=== PATIENT | female | born 1965 | race Caucasian/White ===

== ENCOUNTER → 2020-06-21 14:45 | Outpatient (BNVA) | payer MEDICAID, SELFPAY | PROVIDERS: Family Provider Internal Medicine; Referring Provider Nurse Practitioner Family; Visit Provider Podiatrist Foot & Ankle Surgery | DX: L60.3 Nail dystrophy (principal) | CPT/HCPCS: 87210; 88304 ==

== ENCOUNTER 2020-07-28 13:35 | Outpatient (CLI) | payer MEDICAID, SELFPAY ==
--- NOTE | 2020-07-28 13:40 | XR_ITS ---
WS: [id number] LATERAL LUMBAR SPINE: 3 view. Lateral radiographs are performed in upright neutral, flexion and extension to the patient's toleranc e. HISTORY: SPONDYLOLISTHESIS LUMBOSACRAL REGION COMPARISON: 07/29/2019 Posterior lumbar alignment is normal. With flexion and extension no instability. No fractures. Modera te disc space narrowing at L5-S1. Mild atherosclerosis aorta. XR/XR lumbar spine f/e only [id number] IMPRESSION: 1. No lumbar spine instability. 2. Moderate degenerative disc disease at L5-S1.
== END 2020-07-28 13:36 | disposition home or self-care (01) ==
LOC: RADWPI 13:38
PROVIDERS: Family Provider Internal Medicine; PCP Internal Medicine; Visit Provider Nurse Practitioner
DX: M43.17 Spondylolisthesis, lumbosacral region (principal); M51.37 Other intervertebral disc degeneration, lumbosacral region
CPT/HCPCS: 72120

== ENCOUNTER 2020-10-28 20:00 | Outpatient (CLI) | payer MEDICAID, SELFPAY | END 2020-10-28 20:01 | disposition home or self-care (01) | LOC: SLEEP 10-29 08:12 | PROVIDERS: Family Provider Internal Medicine; PCP Internal Medicine; Visit Provider Internal Medicine | DX: G47.33 Obstructive sleep apnea (adult) (pediatric) (principal) | CPT/HCPCS: 95811 ==

== ENCOUNTER 2021-01-12 07:45 | Outpatient (CLI) | payer MEDICAID, SELFPAY ==
--- NOTE | 2021-01-12 07:51 | MM_ITS ---
WS: [id number] BILATERAL SCREENING DIGITAL MAMMOGRAM WITH CAD HISTORY: SCREENING COMPARISON: 03/21/2019 and 03/12/2019 Bilateral CC and MLO views submitted. Computer aided detection analyzed. Breast composition: There are scattered areas of fibroglandular density. No suspicious masses, microc alcifications or architectural distortion. Benign calcifications. No interval change. MM/[place] [id number] IMPRESSION: BI-RADS: 2-Benign FOLLOW UP: 1 Year Follow-up
== END 2021-01-12 07:46 | disposition home or self-care (01) ==
LOC: RADSHAW 07:49
PROVIDERS: PCP Internal Medicine; Visit Provider Internal Medicine
DX: Z12.31 Encounter for screening mammogram for malignant neoplasm of breast (principal)
CPT/HCPCS: 77067

== ENCOUNTER 2021-03-22 13:30 | Outpatient (CLI) | payer MEDICAID, SELFPAY ==
--- NOTE | 2021-03-22 13:38 | CT_ITS ---
WS: [id number] CT PARANASAL SINUSES HISTORY: CHRONIC SINUSITIS TECHNIQUE: Contiguous 2.5 mm axial images obtained through the sinuses. Images are reconstructed in s agittal and coronal planes. All CT scans at [facility] use at least one of these dose opt imization techniques: automated exposure control; mA and/or kV adjustment per patient size (includes targeted exams where dose is matched to clinical indication); or iterative reconstruction. DLP: 338.71 mGycm COMPARISON: 02/16/2006 Frontal sinuses: Normal. Sphenoid sinus: Normal. Ethmoid sinuses: Normal. Maxillary sinus: Normal. Ostiomeatal unit: Widely patent. Left-sided denae bullosa middle turbinate.. Mild deviation of the n radha septum to the RIGHT. CT/CT sinus wo con* [id number] IMPRESSION: 1. Normal sinus CT. 2. Mild RIGHT deviation of the nasal septum.
== END 2021-03-22 13:31 | disposition home or self-care (01) ==
PROVIDERS: PCP Internal Medicine; Visit Provider Otolaryngology
DX: J32.0 Chronic maxillary sinusitis (principal); J34.2 Deviated nasal septum
CPT/HCPCS: 70486

== ENCOUNTER 2021-04-28 21:00 | Emergency (ER) | payer MEDICAID, SELFPAY ==
[2021-04-28 21:41] VITALS: BP 138/82; PULSE 100; RESP 20; TEMP 36.7; O2SAT 95; BMI 41.3
[2021-04-28 22:38] LABS: Add Urine Microscopic? NO; Charge for UA Resulting for Rev
[2021-04-28 22:41] LABS: Bilirubin Urine Neg (Negative); Blood Urine Neg (Negative); Glucose Urine UA 4+ (Normal); Ketones Urine Negative (Negative); Leukocyte Esterase Urine Negative (Negative); Nitrate Urine Negative (Negative); Protein Urine Neg (Negative); Specific Gravity, Urine 1.005 (1.005-1.030); Urine Appearance Clear (CLEAR); Urine Color Yellow (Yellow); Urobilinogen Urine Norm (Negative); pH Urine 5 (5-7)
--- NOTE | 2021-04-28 23:45 | W.ED.FEMALGU ---
HPI - Female Genitourinary General: Chief complaint: Urogenital-Female Stated complaint: Possible Kidney Infection Time Seen by Provider: 04/28/21 23:45 History of Present Illness: HPI Narrative: Patient comes in today with complaints of urinary frequency and mid back pain. Patient is on a SGL 2 inhibitor which causes her to urinate frequently. Patient reports no fever. Patient does report that occasionally she will get urinary tract infections and yeast infections. Patient came in mainly due to her back discomfort. Review of Systems General: Reports: 10 or more systems reviewed and unremarkable except in HPI and below Musc: Reports: back pain PFSH ED PFSH: Medical History Diabetes mellitus Fibromyalgia High cholesterol Hypertension Surgical History History of 2 sections Family History Other Cancer Diabetes Social History Smoking and tobacco status: never smoked Household members: spouse and children Marital status: Current occupational status: unemployed Physical Exam Const: COMMON NORMALS: no acute distress and patient oriented x3 GENERAL APPEARANCE: cooperative HENMT: COMMON NORMALS: normocephalic, TM's normal bilaterally and Normal external nose present HEAD & SCALP: normal to inspection and normocephalic NOSE: Normal external nose present TYMPANIC MEMBRANE: TM's normal bilaterally MOUTH: Normal oral and palatal mucosa present THROAT: posterior oropharynx normal Eye: GENERAL EYE: appearance normal, both eyes and all related structures Neck/C-Spine: COMMON NORMALS: full ROM Chest: COMMONS NORMALS: normal inspection of the chest Resp: COMMON NORMALS: normal respiratory effort EFFORT & INSPECTION: Yes able to speak in complete sentences Cardio: COMMON NORMALS: regular rate and regular rhythm RATE: regular rate RHYTHM: regular rhythm GI: COMMON NORMALS: non-tender : COMMON NORMALS: Yes no CVA tenderness BLADDER/KIDNEY EXAM: Yes no CVA tenderness Back/Pelvis: COMMON NORMALS: no CVA tenderness LUMBAR SPINE/LOWER BACK: Yes paraspinal muscle tenderness Extremity: COMMON NORMALS: normal to inspection Neuro: COMMON NORMALS: patient oriented x3 and moves all extremities Psych: COMMON NORMALS: mental status grossly normal and cooperative Skin: COMMON NORMALS: no rashes or lesions noted GENERAL SKIN EXAM: no rashes or lesions noted Course Vital Signs: Vital signs: Vital Signs Temperature 98.1 F 04/28/21 21:41 Pulse Rate 100 04/28/21 21:41 Respiratory Rate 20 H 04/28/21 21:41 Blood Pressure 138/82 04/28/21 21:41 Pulse Oximetry 95 04/28/21 21:41 MDM - Female MDM Narrative: Medical decision making narrative: Patient came in tonight for complaints of low back pain and muscle spasming. Patient thinks that she may have a urinary tract infection. On exam respirations are even lungs are clear to auscultation. Abdomen soft nontender. Patient has some muscle tightness and tenderness to the bilateral lower back. Differential diagnosis includes but not limited to urinary tract infection, low back pain, electrolyte disturbance. Urinalysis was clear except for some glucose. CBC was normal. CMP noted no significant abnormal liver enzymes did show a glucose of 265, and a sodium of 135. Patient was given 1 hydrocodone which seemed to help her pain. Patient is worried though that she may be having some adverse effect of the empagliflozin which she relates to the handout that she got with the medication. I recommended the patient just follow-up with primary care for further evaluation and recommendations. Patient agreed to the plan. Lab Data: Labs: Lab Results 04/28/21 04/29/21 04/29/21 Range/Units 22:00 00:05 00:05 WBC 7.0 (4.0-10.0) 10^3/ uL RBC 5.05 (4.1-5.3) 10^6/u L Hgb 15.3 (11.5-15.3) g/dL Hct 44.5 (37.0-47.0) % MCV 88.1 (81-99) fL MCH 30.3 (28.0-34.0) pg MCHC 34.4 (30.0-36.0) g/dL RDW 13.1 (12.1-15.1) % Plt Count 210 (130-400) 10^3/c mm MPV 9.7 (7.4-10.4) fL Neut % (Auto) 59.6 % Lymph % (Auto) 29.3 % Carter % (Auto) 8.0 % Eos % (Auto) 2.0 % Baso % (Auto) 0.7 % Neut # (Auto) 4.17 (1.8-7.7) 10^3/u L Lymph # (Auto) 2.1 (0.8-4.8) 10^3/u L Carter # (Auto) 0.6 (0.2-0.9) 10^3/u L Eos # (Auto) 0.1 (0.0-0.8) 10^3/u L Baso # (Auto) 0.1 (0.0-0.1) 10^3/u L Nucleated RBC % (a uto) 0 % Nucleated RBCs # 0.0 /100WBC Sodium 135 L (136-145) mmol/L Potassium 3.9 (3.5-5.1) mmol/L Chloride 97 L (98-107) mmol/L Carbon Dioxide 25 (22-29) mmol/L Anion Gap 16.9 (5-19) BUN 11 (6-20) mg/dL Creatinine 0.7 (0.5-0.9) mg/dL GFR Calculation 86.9 L (90-130) mL/min Glucose 265 H (65-115) mg/dL Calculated Osmolal ity 289 (285-295) mOsm/k g Calcium 9.4 (8.5-10.5) mg/dL Total Bilirubin 1.1 (0.15-1.2) mg/dL AST 25 (0-32) U/L ALT 28 (0-33) U/L Alkaline Phosphata se 100 (35-105) IU/L Total Protein 7.1 (6.6-8.7) g/dL Albumin 4.2 (3.5-5.2) g/dL Globulin 2.9 (1.3-4.6) g/dL Lipase 19 (13-60) U/L Urine Color Yellow (Yellow) Urine Appearance Clear (CLEAR) Urine pH 5 (5-7) Ur Specific Gravit y 1.005 (1.005-1.030) Urine Protein Neg (Negative) Urine Glucose (UA) 4+ H (Normal) Urine Ketones Negative (Negative) Urine Blood Neg (Negative) Urine Nitrate Negative (Negative) Urine Bilirubin Neg (Negative) Urine Urobilinogen Norm (Negative) mg/dL Ur Leukocyte Destiney ase Negative (Negative) Discharge Plan Discharge Patient Disposition: Home Clinical Impression: Back pain Qualifiers: Back pain location: low back pain Chronicity: acute Back pain laterality: unspecified Sciatica presence: without sciatica Qualified Code(s): M54.5 - Low back pain Condition: Stable Prescriptions: No Action Jardiance 25 mg tablet 25 mg PO DAILY RF: 0 escitalopram oxalate 20 mg tablet 20 mg PO DAILY RF: 0 omeprazole 40 mg capsule,delayed release(DR/EC) 40 mg PO DAILY RF: 0 Dialyvite Vitamin D3 Max 1,250 mcg (50,000 unit) tablet PO RF: 0 venlafaxine 75 mg capsule,extended release 24hr 75 mg PO DAILY RF: 0 All Day Allergy (cetirizine) 10 mg capsule 10 mg PO DAILY PRNRF: 0 tramadol 50 mg tablet 50 mg PO Q8H PRNRF: 0 insulin aspart U-100 [Novolog Flexpen U-100 Insulin] 100 unit/mL (3 mL) insulin pen 5 unit SUBCUT TID RF: 0 waoqwkq-wyrhyuovhe-QYM-caff [Butalbital Compound W/Codeine] [id number] mg capsule 1 cap PO Q6H PRNRF: 0 amitriptyline 25 mg tablet 25 mg PO DAILY RF: 0 lorazepam 0.5 mg tablet 0.5 mg PO DAILY PRNRF: 0 amlodipine 5 mg tablet 5 mg PO DAILY RF: 0 pregabalin 100 mg capsule 100 mg PO BID RF: 0 lovastatin 20 mg tablet 20 mg PO DAILY RF: 0 lisinopril 40 mg tablet 40 mg PO DAILY RF: 0 insulin glargine 100 unit/mL solution 20 unit SUBCUT DAILY RF: 0 glyburide 5 mg tablet 5 mg PO BID RF: 0 cephalexin 500 mg capsule 500 mg PO BID RF: 0 fluticasone propionate 50 mcg/actuation spray,suspension 2 spray intranasal DAILY 180 Days Qty: 16 RF: 5 Discharge Orders: Discharge ED (Routine); Ordered 04/29/21 Ordered By: Jere Quinteros Referrals: Lacy Rios MD [Primary Care Provider] - Discharge Diet: Usual diet Discharge Activity: Increase activity as tolerated Patient Instructions: Back Pain (ED), Opioid Safety Activity Restrictions/Additional Instructions: Home and rest. Activity as tolerated. Continue with routine medications as directed. Follow-up with primary care for further instruction and evaluation. Return to the emergency room for new concerns. Coding Level of Care Code ED Long Term Care Phlebotomist for Viraj Madison Exam Comprehensive
[2021-04-29] MEDS: HYDROcodone-acetaminophen 7.5-325 mg Tablet 1 TAB PO
[2021-04-29 00:19] LABS: Basophils # 0.1 10^3/uL (0.0-0.1); Basophils % 0.7 %; Eosinophils # 0.1 10^3/uL (0.0-0.8); Hematocrit 44.5 % (37.0-47.0); Hemoglobin 15.3 g/dL (11.5-15.3); Lymphocytes # 2.1 10^3/uL (0.8-4.8); Lymphocytes % 29.3 %; Mean Corpuscular HGB Conc 34.4 g/dL (30.0-36.0); Mean Corpuscular Hemoglobin 30.3 pg (28.0-34.0); Mean Corpuscular Volume 88.1 fL (81-99); Mean Platelet Volume 9.7 fL (7.4-10.4); Monocytes # 0.6 10^3/uL (0.2-0.9); Neutrophils # 4.17 10^3/uL (1.8-7.7); Neutrophils % 59.6 %; Nucleated Red Blood Cells % 0 %; Platelet Count 210 10^3/cmm (130-400); Red Blood Count 5.05 10^6/uL (4.1-5.3); Red Cell Distribution Width 13.1 % (12.1-15.1)
[2021-04-29 00:46] LABS: Alanine Aminotransferase 28 U/L (0-33); Albumin Level 4.2 g/dL (3.5-5.2); Alkaline Phosphatase 100 IU/L (35-105); Anion Gap 16.9 (5-19); Aspartate Amino Transferase 25 U/L (0-32); Blood Urea Nitrogen 11 mg/dL (6-20); Calcium 9.4 mg/dL (8.5-10.5); Carbon Dioxide 25 mmol/L (22-29); Chloride 97 mmol/L (98-107); Globulin 2.9 g/dL (1.3-4.6); Glomerular Filtration Rate 86.9 mL/min (90-130); Glucose 265 mg/dL (65-115); Lipase 19 U/L (13-60); Osmolality Calculated 289 mOsm/kg (285-295); Potassium 3.9 mmol/L (3.5-5.1); Sodium 135 mmol/L (136-145); Total Bilirubin 1.1 mg/dL (0.15-1.2); Total Protein 7.1 g/dL (6.6-8.7)
[2021-04-29 00:57] VITALS: BP 142/78; PULSE 78; RESP 18; O2SAT 98
== END 2021-04-29 00:58 | disposition home or self-care (01) ==
PROVIDERS: Emergency Provider Nurse Practitioner Family; PCP Internal Medicine
DX: M54.5 Low back pain (principal); E11.9 Type 2 diabetes mellitus without complications; I10 Essential (primary) hypertension; E78.00 Pure hypercholesterolemia, unspecified; Z79.4 Long term (current) use of insulin
CPT/HCPCS: 80053; 81003; 83690; 85025; 99283

== ENCOUNTER 2021-05-09 12:24 | Outpatient (CLI) | payer MEDICAID, SELFPAY ==
--- NOTE | 2021-05-09 12:28 | CT_ITS ---
WS: [id number] CT scan of the abdomen and pelvis with and without IV contrast. Additional two-dimensional coronal an d sagittal reconstruction was performed. 05/09/2021 Clinical Data: RIGHT FLANK PAIN Comparison: CT abdomen and pelvis, 03/28/2016. DLP: 2169.40 mGy-cm. All CT scans at [facility] use at least one of these dose optimization techniques: automat ed exposure control; mA and/or kV adjustment per patient size (includes targeted exams where dose is matched to clinical indication); or iterative reconstruction. Findings: The lower lungs show no nodules, masses or effusions. There are clips in the gallbladder fossa from a cholecystectomy. The liver, spleen, adrenal glands and pancreas are normal. The kidneys show equal bilateral contrast excretion with no renal calculi. There is a small cyst at t he inferior pole of the right kidney. No renal masses or hydronephrosis is seen. The abdominal aorta is normal in size. No appendicitis or diverticulitis is seen. No abscess, adenopathy, ascites, mass, obstruction or free air is seen. There is a small fat-containing umbilical hernia with fat interposed between the anteri or fascia and the right lateral rectus abdominis muscle unchanged. The bladder is unremarkable. The uterus is normal. No inguinal hernia is seen. The bones of the lower thorax, lumbar spine, pelvis, and hips are not remarkable. CT/CT abdomen pelvis wo/w [id number] Impression: 1. Negative for renal or ureteral calculi. 2. Negative for acute intra-abdominal or pelvic abnormalities.
[2021-05-09] MEDS: iohexol 300 mg/mL 100 mL Btl IV (12:56)
== END 2021-05-09 12:25 | disposition home or self-care (01) ==
PROVIDERS: PCP Internal Medicine; Visit Provider Internal Medicine
DX: R10.9 Unspecified abdominal pain (principal)
CPT/HCPCS: 74178; Q9967

== ENCOUNTER → 2021-12-23 10:24 | Outpatient (BNVA) | payer MEDICAID, SELFPAY | PROVIDERS: PCP Internal Medicine; Visit Provider Surgery | DX: Z11.52 Encounter for screening for COVID-19 (principal) | CPT/HCPCS: 87635 ==

== ENCOUNTER 2021-12-28 08:32 | Day surgery (SDC) | payer MEDICAID, SELFPAY ==
[2021-12-27 09:24] VITALS: BMI 40.6
[2021-12-28 09:27] VITALS: BP 123/95; PULSE 98; RESP 18; TEMP 35.9; O2SAT 98
[2021-12-28] MEDS: sodium chloride 0.9% 1,000 ML 30 ML IV (09:36)
--- NOTE | 2021-12-28 09:40 | P.ANESASSM_ITS ---
Pre-Anesthetic Assessment Height/Weight: Height 1.75 m Weight 124.738 kg Temp Pulse Resp BP Pulse Ox 96.7 F L 98 18 123/95 98 12/28/21 09:27 12/28/21 09:27 12/28/21 09:27 12/28/21 09:27 12/28/21 09:27 Preop Diagnosis: diagnostic Operation Date: 12/28/21 10:45 Proposed Procedures p Colonoscopy 47814/k92.1(Not Applicable) - Mainor Aguirre MD Familial anesthetic complications: None Was Beta Lauren taken within 24 hours: N/A Was Clonidine taken within 24 hours: N/A Last intake: Intake Last Liquid Date 12/27/21 Last Liquid Time 20:00 Last Solid Date 12/26/21 Last Solid Time 23:00 Social No alcohol and No tobacco Exam alert, oriented x 3, clear to auscultation bilaterally and regular rate & rhythm Airway Submandibular: within normal limits Cervical ROM: within normal limits Mallampati: Class II Dentition: chipped Comments: Comments: TMJ Pulmonary Sleep Apnea CV/HEM Hypertension GI Gastroesophageal Reflux Disease Metabolic Diabetes Mellitus, Hyperlipidemia and Morbid Obesity [facility] Lower Back Pain chronic pain Anesthetic Plan ASA status: 3 Anesthesia: MAC Medications/Allergies Home Medications Medication Instructions Recorded Confirmed Last Taken Type amitriptyline 25 mg tablet 25 mg PO DAILY 02/15/21 12/28/21 12/27/21 History 2100 amlodipine 5 mg tablet 5 mg PO DAILY 02/15/21 12/28/21 12/27/21 21:00 History cetirizine 10 mg capsule (All Day 10 mg PO BID PRN 02/15/21 12/28/21 12/27/21 21:00 History Allergy (cetirizine)) cholecalciferol (vitamin D3) 1,250 See Rx Instructions .ROUTE .COMPLEX 02/15/21 12/28/21 12/25/21 History mcg (50,000 unit) tablet (Dialyvite Vitamin D3 Max) hdhdjet-gkmicnabti-WHN-caffeine 30 1 cap PO Q6H PRN 02/15/21 12/28/21 12/21/21 History mg-50 mg-325 mg-40 mg capsule (Butalbital Compound with Codeine) escitalopram oxalate 20 mg tablet 20 mg PO DAILY 02/15/21 12/28/21 12/27/21 22:00 History (Lexapro) glyburide 5 mg tablet 5 mg PO BID 02/15/21 12/28/21 12/27/21 21:00 History insulin aspart U-100 100 unit/mL 22 unit SUBCUT TID 02/15/21 12/28/21 12/26/21 History (3 mL) subcutaneous pen (Novolog Flexpen U-100 Insulin aspart) insulin glargine 100 unit/mL 16 unit SUBCUT BID 02/15/21 12/28/21 12/27/21 21:00 History subcutaneous solution lisinopril 40 mg tablet 40 mg PO DAILY 02/15/21 12/28/21 12/27/21 21:00 History lorazepam 0.5 mg tablet 0.5 mg PO DAILY PRN 02/15/21 12/28/21 12/21/21 History lovastatin 20 mg tablet 20 mg PO DAILY 02/15/21 12/28/21 12/27/21 21:00 History omeprazole 40 mg capsule,delayed 40 mg PO DAILY 02/15/21 12/28/21 12/27/21 08:00 History release pregabalin 100 mg capsule (Lyrica) 100 mg PO BID 02/15/21 12/28/21 12/27/21 21:00 History tramadol 50 mg tablet 50 mg PO Q8H PRN 02/15/21 12/28/21 12/27/21 21:00 History venlafaxine 75 mg capsule,extended 75 mg PO DAILY 02/15/21 12/28/21 12/27/21 21:00 History release 24 hr Allergies Allergy/AdvReac Type Severity Reaction Status Date / Time latex Allergy Severe anaphlactic Verified 12/28/21 09:29 Current Medications Generic Name Dose Route Start Last Admin Trade Name Freq PRN Reason Stop Dose Admin Sodium Chloride 1,000 mls @ 30 mls/hr 12/28/21 09:00 12/28/21 09:36 Sodium Chloride 0.9% IV 12/29/21 08:59 30 mls/hr .Q24H TJ Administration PFSH Anesthesia Medical History Diabetes mellitus Dyslipidemia Fibromyalgia History of anxiety History of depression History of obstructive sleep apnea Hypertension Surgical History History of 2 sections History of cholecystectomy History of colonoscopy with polypectomy 2017 History of endometrial ablation Family History Other Cancer Diabetes Social History Smoking and tobacco status: never smoked Household members: spouse and children Marital status: Current occupational status: unemployed Data Anesthesia Cardiac Studies: No Data to Display
[2021-12-28] MEDS: insulin regular-human 10 UNIT in SYRINGE 1 EACH IVP (09:59)
--- NOTE | 2021-12-28 10:08 | W.PM.OPSFHP ---
Same Day Surgery H&P Indication for Procedure/HPI DATE OF PROCEDURE: December 28, 2021 CHIEF COMPLAINT/INDICATIONFOR SURGICAL PROCEDURE: colonoscopy PREOP DIAGNOSIS: diagnostic PLANNED PROCEDURE: Operation Date: 12/28/21 10:45 Proposed Procedures p Colonoscopy 22129/k92.1(Not Applicable) - Mainor Aguirre MD Medications/Allergies* Home Medications Medication Instructions Recorded Confirmed Type amitriptyline 25 mg tablet 25 mg PO DAILY 02/15/21 12/28/21 History amlodipine 5 mg tablet 5 mg PO DAILY 02/15/21 12/28/21 History cetirizine 10 mg capsule (All Day 10 mg PO BID PRN 02/15/21 12/28/21 History Allergy (cetirizine)) cholecalciferol (vitamin D3) 1,250 See Rx Instructions .ROUTE .COMPLEX 02/15/21 12/28/21 History mcg (50,000 unit) tablet (Dialyvite Vitamin D3 Max) zsnqyrl-fbmcabeizh-PGS-caffeine 30 1 cap PO Q6H PRN 02/15/21 12/28/21 History mg-50 mg-325 mg-40 mg capsule (Butalbital Compound with Codeine) escitalopram oxalate 20 mg tablet 20 mg PO DAILY 02/15/21 12/28/21 History (Lexapro) glyburide 5 mg tablet 5 mg PO BID 02/15/21 12/28/21 History insulin aspart U-100 100 unit/mL 22 unit SUBCUT TID 02/15/21 12/28/21 History (3 mL) subcutaneous pen (Novolog Flexpen U-100 Insulin aspart) insulin glargine 100 unit/mL 16 unit SUBCUT BID 02/15/21 12/28/21 History subcutaneous solution lisinopril 40 mg tablet 40 mg PO DAILY 02/15/21 12/28/21 History lorazepam 0.5 mg tablet 0.5 mg PO DAILY PRN 02/15/21 12/28/21 History lovastatin 20 mg tablet 20 mg PO DAILY 02/15/21 12/28/21 History omeprazole 40 mg capsule,delayed 40 mg PO DAILY 02/15/21 12/28/21 History release pregabalin 100 mg capsule (Lyrica) 100 mg PO BID 02/15/21 12/28/21 History tramadol 50 mg tablet 50 mg PO Q8H PRN 02/15/21 12/28/21 History venlafaxine 75 mg capsule,extended 75 mg PO DAILY 02/15/21 12/28/21 History release 24 hr Allergies/Adverse Reactions Allergy/AdvReac Type Severity Reaction Status Date / Time latex Allergy Severe anaphlactic Verified 12/28/21 09:29 Current Medications: Generic Name Dose Route Start Last Admin Trade Name [place] PRN Reason Stop Dose Admin Sodium Chloride 1,000 mls @ 30 mls/hr 12/28/21 09:00 12/28/21 09:36 Sodium Chloride 0.9% IV 12/29/21 08:59 30 mls/hr .Q24H TJ Administration Pertinent History/Comorbid Conditions* Medical History (Updated 11/29/21 @ 10:58 by Mainor Aguirre MD) Diabetes mellitus Dyslipidemia Fibromyalgia History of anxiety History of depression History of obstructive sleep apnea Hypertension Surgical History (Updated 11/29/21 @ 10:58 by Mainor Aguirre MD) History of 2 sections History of cholecystectomy History of colonoscopy with polypectomy 2017 History of endometrial ablation Family History (Updated 06/21/20 @ 13:39 by Sophia Arevalo LPN) Diabetes Cancer Social History Smoking and tobacco status: never smoked Household members: spouse and children Marital status: Current occupational status: unemployed Pertinent Exam Findings alert, oriented x 3 and regular rate & rhythm Recommendations Surgery/Procedure today Coding Level of Care Code Acute Capital Campaign Fundraiser for Viraj Madison
[2021-12-28 10:55] VITALS: BP 117/69; PULSE 95; RESP 16; TEMP 37; O2SAT 90
--- NOTE | 2021-12-28 11:01 | PC.NURSE ---
ALFRED Vital notified of blood sugar of 268. Stated to tell patient to take meds as normal when she gets home.
--- NOTE | 2021-12-28 11:03 | ANE.PACU2 ---
Inpatient post-anesthesia follow up: Airway intact: Yes Vital signs: Temperature 98.6 F Pulse Rate 95 Respiratory Rate 16 Blood Pressure 117/69 Pulse Oximetry 90 Oxygen Delivery Me thod Nasal Cannula Oxygen Flow Rate 3 Fraction of Inspir ed Oxygen Hydration adequate: Yes Nausea and vomiting: No Pain level: 1 Mental status: Baseline
[2021-12-28 11:12] VITALS: BP 116/73; PULSE 97; RESP 16; O2SAT 95
== END 2021-12-28 11:27 | disposition home or self-care (01) ==
PROVIDERS: PCP Internal Medicine; Visit Provider Surgery
PROC: 0DJD8ZZ Inspection of Lower Intestinal Tract, Via Natural or Artificial Opening Endoscopic (ICD-10-PCS; CPT 45378; principal; 2021-12-28 10:45)
DX: K92.1 Melena (principal); K57.30 Diverticulosis of large intestine without perforation or abscess without bleeding; K64.8 Other hemorrhoids; G47.30 Sleep apnea, unspecified; I10 Essential (primary) hypertension; K21.9 Gastro-esophageal reflux disease without esophagitis; E11.9 Type 2 diabetes mellitus without complications; E78.5 Hyperlipidemia, unspecified; E66.01 Morbid (severe) obesity due to excess calories; Z68.41 Body mass index [BMI] 40.0-44.9, adult; G89.29 Other chronic pain; M54.50 Low back pain, unspecified; M79.7 Fibromyalgia; F41.9 Anxiety disorder, unspecified; F32.9 Major depressive disorder, single episode, unspecified; G47.33 Obstructive sleep apnea (adult) (pediatric)
CPT/HCPCS: 45378; J1815; J2704; J7030

== ENCOUNTER 2022-03-03 11:57 | Outpatient (CLI) | payer MEDICAID, SELFPAY ==
--- NOTE | 2022-03-03 12:00 | MM_ITS ---
WS: [id number] VIEWS: MLO and CC views both breasts. 3D digital tomosynthesis is also included in this exam. Comparison made with prior exam of 10/21/2015, 03/09/2017, 03/12/2019, 01/12/2021.. Findings: There was no sign of mass, architectural distortion or suspicious calcification in either breast. Fa tty MM/[place] [id number] Impression: BI-RADS: 2-Benign FOLLOW-UP: 1 Year Follow-up This mammogram was also analyzed by the Computer Aided Detection System [employer] Imag e District Or District Office Director.
== END 2022-03-03 11:58 | disposition home or self-care (01) ==
LOC: RAD 11:59
PROVIDERS: PCP Internal Medicine; Visit Provider Internal Medicine
DX: Z12.31 Encounter for screening mammogram for malignant neoplasm of breast (principal)
CPT/HCPCS: 77063; 77067

== ENCOUNTER → 2022-03-15 15:00 | Outpatient (BNVA) | payer MEDICAID, SELFPAY | PROVIDERS: PCP Internal Medicine; Referring Provider Internal Medicine; Visit Provider Podiatrist Foot & Ankle Surgery | DX: L60.3 Nail dystrophy (principal); L60.8 Other nail disorders; M21.621 Bunionette of right foot; M79.671 Pain in right foot | CPT/HCPCS: 73630; 99213; 99214 ==

== ENCOUNTER → 2022-03-16 13:24 | Outpatient (BNVA) | payer OTHER, MEDICAID, SELFPAY | PROVIDERS: PCP Internal Medicine; Visit Provider Psychiatry & Neurology Psychiatry | DX: F33.2 Major depressive disorder, recurrent severe without psychotic features (principal); F43.12 Post-traumatic stress disorder, chronic; F41.1 Generalized anxiety disorder; F41.0 Panic disorder [episodic paroxysmal anxiety] | CPT/HCPCS: 99204 ==

== ENCOUNTER 2022-05-29 15:18 | Emergency (ER) | payer MEDICAID, SELFPAY ==
[2022-05-29 15:27] VITALS: BP 142/77; PULSE 100; RESP 16; TEMP 36.9; O2SAT 95; BMI 40.6
--- NOTE | 2022-05-29 16:19 | ED_ITS ---
HPI - General Adult General: Chief complaint: General Medical Stated complaint: eye pain Time Seen by Provider: 05/29/22 15:55 PFS ED PFSH: Medical History Diabetes mellitus Dyslipidemia Fibromyalgia History of anxiety History of depression History of obstructive sleep apnea Hypertension Psychiatric care Surgical History History of 2 sections History of cholecystectomy History of colonoscopy with polypectomy 2016 2021 - diverticuli History of endometrial ablation Family History Other Cancer Diabetes Social History (Updated 04/27/22 @ 11:30 by Hood Giraldo LPN) Smoking and tobacco status: former smoker Quit status (tobacco): has quit using tobacco Year quit tobacco: 1990 Second hand smoke exposure: No Smoking risk assessment/counseling performed?: No Alcohol intake: former Year of sobriety/quit date alcohol: 1989 Desire information about alcohol rehabilitation?: No Counseling given: No Household members: spouse and children Marital status: Current occupational status: unemployed Course Vital Signs: Vital signs: Vital Signs Temperature 98.4 F 05/29/22 15:27 Pulse Rate 100 05/29/22 15:27 Respiratory Rate 16 05/29/22 15:27 Blood Pressure 142/77 05/29/22 15:27 Pulse Oximetry 95 05/29/22 15:27 Oxygen Delivery Me thod 05/29/22 15:27 Discharge Plan Discharge Condition: Stable Prescriptions: No Action omeprazole 40 mg capsule,delayed release(DR/EC) 40 mg PO DAILY Dialyvite Vitamin D3 Max 1,250 mcg (50,000 unit) tablet See Rx Instructions .ROUTE .COMPLEX Rx Instructions: WEEKLY All Day Allergy (cetirizine) 10 mg capsule 10 mg PO BID PRN (Reason: Allergic Symptoms) tramadol 50 mg tablet 50 mg PO Q8H PRN (Reason: Pain) etxdild-dvqsmyfqnr-OEF-caff [Butalbital Compound W/Codeine] [id number] mg capsule 1 cap PO Q6H PRN (Reason: Migraine Headache) amitriptyline 25 mg tablet 25 mg PO DAILY lorazepam 0.5 mg tablet 0.5 mg PO DAILY PRN (Reason: Anxiety) amlodipine 5 mg tablet 5 mg PO DAILY pregabalin [Lyrica] 100 mg capsule 100 mg PO BID lovastatin 20 mg tablet 20 mg PO DAILY lisinopril 40 mg tablet 40 mg PO DAILY glyburide 5 mg tablet 5 mg PO BID insulin aspart U-100 [Novolog Flexpen U-100 Insulin] 100 unit/mL (3 mL) insulin pen See Rx Instructions SUBCUT TID Rx Instructions: 28 units SUBCUT three times daily; insulin glargine [Lantus U-100 Insulin] 100 unit/mL solution 60 unit SUBCUT BID venlafaxine [Effexor XR] 150 mg capsule,extended release 24hr 300 mg PO DAILY Qty: 60 2RF escitalopram oxalate [Lexapro] 20 mg tablet 20 mg PO DAILY Qty: 30 2RF naproxen 500 mg tablet 500 mg PO TID 30 Days Qty: 60 0RF Referrals: Lacy Rios MD [Primary Care Provider] - Coding Level of Care Code ED Senior Physician for Viraj Madison
--- NOTE | 2022-05-29 16:19 | ED_ITS ---
HPI - Eye Problem General: Chief complaint: General Medical Stated complaint: eye pain Time Seen by Provider: 05/29/22 15:55 Source: patient Mode of arrival: ambulatory Limitations: no limitations History of Present Illness: Patient 76-year-old female presents to ED today with a complaint of right eye drainage and inflammation. Patient tells me in the mornings her eye has been matted shut. She is complaining of some redness and irritation surrounding the lashes/lids. She feels a sand or grainy like sensation to the eye and feels like she has noticed something to the upper inner eyelid. No obvious foreign body sensation. No mechanism of injury that would provoke a foreign body into the eye. Having any visual changes. Periorbital swelling. No painful EOMs. MD chief complaint: eye pain, eye redness and other (drainage) Onset (ago): day(s) Duration: constant Location: both eyes Eye Symptoms: discharge Place: home Mechanism: none Severity: mild Associated symptoms: Reports no associated symptoms; Denies fever(s) Related Data: Patient tetanus UTD: Yes Review of Systems Const: Denies: fever(s), chills, body aches, fatigue or malaise Eyes: Reports: eye discharge and eye redness; Denies: change in vision, blurry vision, blind spots, photophobia, yellow eyes, dry eyes, floaters or seeing flashes ENMT: Denies: throat pain, odynophagia, ear or mastoid pain, nasal discharge or nasal congestion [facility] ED PFSH: Medical History Diabetes mellitus Dyslipidemia Fibromyalgia History of anxiety History of depression History of obstructive sleep apnea Hypertension Psychiatric care Surgical History History of 2 sections History of cholecystectomy History of colonoscopy with polypectomy 2016 2021 - diverticuli History of endometrial ablation Family History Other Cancer Diabetes Social History (Updated 04/27/22 @ 11:30 by Hood Giraldo LPN) Smoking and tobacco status: former smoker Quit status (tobacco): has quit using tobacco Year quit tobacco: 1990 Second hand smoke exposure: No Smoking risk assessment/counseling performed?: No Alcohol intake: former Year of sobriety/quit date alcohol: 1989 Desire information about alcohol rehabilitation?: No Counseling given: No Household members: spouse and children Marital status: Current occupational status: unemployed Physical Exam Const: COMMON NORMALS: no acute distress, patient oriented x3, no limitations and alert GENERAL APPEARANCE: cooperative NUTRITIONAL APPEARANCE: obese Eye: COMMON NORMALS: Equal, round and reactive pupils present, EOMs intact bilaterally and conjunctivae normal GENERAL EYE: normal light reflex VISUAL ACUITY: Yes acuity normal ALIGNMENT: Yes alignment normal CONJUNCTIVA: Yes conjunctivae normal SCLERA: sclerae normal CORNEA: Yes corneas normal PUPIL: Yes Equal, round and reactive pupils present DIRECT OPHTHALMOSCOPY: Yes normal light reflex OTHER: pt has redness localized to upper/lower lash lines raising suspicion for blepharitis; no drainage currently but states she just did warm compress to remove; she has what appears to be a chalazion to her upper inner eyelid Neuro: COMMON NORMALS: patient oriented x3 SENSORIUM/ORIENTATION: Yes alert Course Vital Signs: Vital signs: Vital Signs Temperature 98.4 F 05/29/22 15:27 Pulse Rate 65 05/29/22 16:48 Respiratory Rate 14 05/29/22 16:48 Blood Pressure 121/78 05/29/22 16:48 Pulse Oximetry 96 05/29/22 16:48 Oxygen Delivery Me thod 05/29/22 15:27 MDM - Eye Problem Medical Decision Making Will place patient on antibiotic ointment and continue warm compresses. Recommend follow-up with ophthalmology in 1 to 2 weeks if symptoms do not improve. Return to ED precautions given. Discharge Plan Discharge Patient Disposition: Home Clinical Impression: Chalazion of right upper eyelid Blepharitis of right eye Qualifiers: Blepharitis type: unspecified type Eyelid: both upper and lower Qualified Code(s): H01.00A - Unspecified blepharitis right eye, upper and lower eyelids Condition: Stable Prescriptions: New erythromycin 5 mg/gram (0.5 %) ointment 1 applic ophthalmic (eye) Q4H 7 Days Qty: 1 0RF No Action omeprazole 40 mg capsule,delayed release(DR/EC) 40 mg PO DAILY Dialyvite Vitamin D3 Max 1,250 mcg (50,000 unit) tablet See Rx Instructions .ROUTE .COMPLEX Rx Instructions: WEEKLY All Day Allergy (cetirizine) 10 mg capsule 10 mg PO BID PRN (Reason: Allergic Symptoms) tramadol 50 mg tablet 50 mg PO Q8H PRN (Reason: Pain) [id number] [Butalbital Compound W/Codeine] 65-11-934-40 mg capsule 1 cap PO Q6H PRN (Reason: Migraine Headache) amitriptyline 25 mg tablet 25 mg PO DAILY lorazepam 0.5 mg tablet 0.5 mg PO DAILY PRN (Reason: Anxiety) amlodipine 5 mg tablet 5 mg PO DAILY pregabalin [Lyrica] 100 mg capsule 100 mg PO BID lovastatin 20 mg tablet 20 mg PO DAILY lisinopril 40 mg tablet 40 mg PO DAILY glyburide 5 mg tablet 5 mg PO BID insulin aspart U-100 [Novolog Flexpen U-100 Insulin] 100 unit/mL (3 mL) insulin pen See Rx Instructions SUBCUT TID Rx Instructions: 28 units SUBCUT three times daily; insulin glargine [Lantus U-100 Insulin] 100 unit/mL solution 60 unit SUBCUT BID venlafaxine [Effexor XR] 150 mg capsule,extended release 24hr 300 mg PO DAILY Qty: 60 2RF escitalopram oxalate [Lexapro] 20 mg tablet 20 mg PO DAILY Qty: 30 2RF naproxen 500 mg tablet 500 mg PO TID 30 Days Qty: 60 0RF Discharge Orders: Discharge ED (Routine); Ordered 05/29/22 Ordered By: Sandy Soria Referrals: Lacy Rios MD [Primary Care Provider] - Coding Level of Care Code 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
[2022-05-29 16:48] VITALS: BP 121/78; PULSE 65; RESP 14; O2SAT 96
== END 2022-05-29 16:49 | disposition home or self-care (01) ==
PROVIDERS: Emergency Provider Physician Assistant; PCP Internal Medicine
DX: H00.11 Chalazion right upper eyelid (principal); H01.00A Unspecified blepharitis right eye, upper and lower eyelids; Z79.4 Long term (current) use of insulin; E11.9 Type 2 diabetes mellitus without complications; E78.5 Hyperlipidemia, unspecified; I10 Essential (primary) hypertension; Z87.891 Personal history of nicotine dependence
CPT/HCPCS: 99283

== ENCOUNTER 2022-06-15 06:00 | Outpatient (RCR) | payer MEDICAID, SELFPAY | END 2022-07-07 23:59 | disposition home or self-care (01) | LOC: SPT 06:00 | PROVIDERS: PCP Internal Medicine; Visit Provider Internal Medicine | DX: M51.17 Intervertebral disc disorders with radiculopathy, lumbosacral region (principal); M79.10 Myalgia, unspecified site; M50.30 Other cervical disc degeneration, unspecified cervical region; M54.9 Dorsalgia, unspecified | CPT/HCPCS: 97110; 97161 ==

== ENCOUNTER 2022-07-08 06:00 | Outpatient (RCR) | payer OTHER, MEDICAID, SELFPAY | END 2022-08-07 23:59 | disposition home or self-care (01) | LOC: SPT 06:00 | PROVIDERS: PCP Internal Medicine; Visit Provider Internal Medicine | DX: M51.17 Intervertebral disc disorders with radiculopathy, lumbosacral region (principal); M79.10 Myalgia, unspecified site; M50.30 Other cervical disc degeneration, unspecified cervical region; M54.9 Dorsalgia, unspecified | CPT/HCPCS: 97110 ==

== ENCOUNTER 2022-08-08 06:00 | Outpatient (RCR) | payer OTHER, MEDICAID, SELFPAY | END 2022-08-16 23:59 | disposition home or self-care (01) | LOC: SPT 06:00 | PROVIDERS: PCP Internal Medicine; Visit Provider Internal Medicine | DX: M51.17 Intervertebral disc disorders with radiculopathy, lumbosacral region (principal); M79.10 Myalgia, unspecified site; M50.30 Other cervical disc degeneration, unspecified cervical region | CPT/HCPCS: 97110 ==

== ENCOUNTER 2022-08-16 12:11 | Outpatient (CLI) | payer OTHER, MEDICAID, SELFPAY ==
--- NOTE | 2022-08-16 12:30 | XR_ITS ---
WS: [id number] Right hand, 3 views, 08/16/2022 Clinical Data: PAIN IN RIGHT HAND Comparison: None. Findings: No fractures or dislocations are seen. The soft tissues are unremarkable. The joint space s are normal There is an incidental bone island in the head of the right fifth metacarpal carpal. No periarticular demineralization or calcifications are seen. XR/XR hand RT min 3V* [id number] Impression: Negative right hand.
--- NOTE | 2022-08-16 12:30 | XR_ITS ---
WS: [id number] Left hand, 3 views, 08/16/2022 Clinical Data: PAIN IN LEFT HAND Comparison: None. Findings: No fractures or dislocations are seen. The soft tissues are unremarkable. The joint spaces are normal No periarticular demineralization or calcification was seen. XR/XR hand LT min 3V* [id number] Impression: Negative left hand.
--- NOTE | 2022-08-16 12:37 | XR_ITS ---
WS: [id number] Left foot, 3 views, 08/16/2022 Clinical Data: BILATERAL FEET PAIN Comparison: Left foot, 08/13/2018. Findings: No fractures or dislocations are seen. No bone destruction or erosion is noted. The joint spaces and soft tissues are normal. There is a plantar spur and an Achilles spur. XR/XR foot LT min 3V* [id number] Impression: Negative left foot.
--- NOTE | 2022-08-16 12:37 | XR_ITS ---
WS: [id number] Right foot, 3 views, 08/16/2022 Clinical Data: BILATERAL FEET PAIN Comparison: Right foot, 03/15/2022 Findings: No fractures or dislocations are seen. No bone destruction or erosion is noted. The joint spaces and soft tissues are normal. No periarticular demineralization or calcifications are seen. There is a plantar spur and an Achilles spur. XR/XR foot RT min 3V* [id number] Impression: Negative right foot.
== END 2022-08-16 12:12 | disposition home or self-care (01) ==
LOC: RAD 12:14
PROVIDERS: PCP Internal Medicine; Visit Provider Internal Medicine
DX: M79.642 Pain in left hand (principal); M79.641 Pain in right hand; M79.672 Pain in left foot; M79.671 Pain in right foot
CPT/HCPCS: 73130; 73630

== ENCOUNTER 2022-09-11 12:07 | Emergency (ER) | payer OTHER, MEDICAID, SELFPAY ==
[2022-09-11 12:18] VITALS: BP 164/79; PULSE 97; RESP 16; TEMP 36.8; O2SAT 96
--- NOTE | 2022-09-11 12:37 | CT_ITS ---
WS: [id number] CT HEAD NONCONTRAST HISTORY: RIGHT facial droop TECHNIQUE: Contiguous axial imaging performed through the brain in 3.0 mm imaging. Bone and soft tiss ue windows. Sagittal and coronal reformats reviewed. All CT scans at [facility] use at least one of these dose optimization techniques: automated exposure control; mA and/or kV adjustment per pa tient size (includes targeted exams where dose is matched to clinical indication); or iterative recon struction. DLP: 1095.68 mGy.cm COMPARISON: 01/22/2015 No acute intracranial hemorrhage, midline shift or mass effect. Very mild atrophy. There is a small lacunar infarct or small vessel chronic ischemic disease RIGHT pa rietal subcortical white matter. No mass effect. Ventricles: Normal size with no hydrocephalus. No inferior displacement of the cerebellar tonsils. Paranasal sinuses: As visualized are clear. Mastoid air cells: Well pneumatized. Calvarium and scalp: Hyperostosis frontalis interna. CT/CT head wo con* [id number] IMPRESSION: 1. No acute intracranial hemorrhage or edema. 2. No mass effect or acute infarct.
--- NOTE | 2022-09-11 13:51 | W.ED.NEUROSD ---
HPI - Neuro Symptoms/Deficit General: Chief Complaint: Neuro Symptoms/Deficit Stated Complaint: right side of face, stroke like symptons Time Seen by Provider: 09/11/22 13:13 History of Present Illness: Patient is a 57-year-old female comes to the ED with right facial weakness and numbness. Symptoms started last night at around 7 PM. Patient says she started feeling some numbness and tingling on right side of her mouth and tongue. This morning she woke up and she was having weakness to the right side of her face along with numbness and tingling in the right side of her face. The numbness and tingling have improved. Denies any vision changes, weakness to the rest of her body. Patient has also been having sinus congestion and pain along with a sore throat for the past week. Associated symptoms: Deny chest pain, headache(s), nausea or vomiting Review of Systems Const: Denies: fever(s), chills or fatigue Eyes: Denies: change in vision or eye discomfort ENMT: Reports: nasal congestion and sinus pain; Denies: throat pain, odynophagia or nasal discharge Card: Denies: chest pain, palpitations, edema, swelling of feet/ankles, dyspnea on exertion or orthopnea Resp: Denies: dyspnea, productive cough or non-productive cough GI: Denies: abdominal pain, nausea, vomiting, diarrhea, constipation or hematochezia : Denies: flank pain, dysuria or hematuria Musc: Denies: neck pain, back pain or extremity swelling Skin/Breast: Denies: rash or new lesions Neuro: Denies: headache(s), numbness in extremities or weakness in extremities [facility] ED PFSH: Medical History Diabetes mellitus Dyslipidemia Fibromyalgia History of anxiety History of depression History of obstructive sleep apnea Hypertension Psychiatric care Surgical History History of 2 sections History of cholecystectomy History of colonoscopy with polypectomy 2017 2021 - diverticuli History of endometrial ablation Family History Other Cancer Diabetes Social History Smoking and tobacco status: former smoker Quit status (tobacco): has quit using tobacco Year quit tobacco: 1990 Second hand smoke exposure: No Smoking risk assessment/counseling performed?: No Alcohol intake: former Year of sobriety/quit date alcohol: 1989 Desire information about alcohol rehabilitation?: No Counseling given: No Desire information about substance/drug rehabilitation?: No Counseling given: No Household members: spouse and children Marital status: Current occupational status: unemployed Physical Exam Const: COMMON NORMALS: no acute distress, patient oriented x3, healthy appearing and alert GENERAL APPEARANCE: cooperative and comfortable HENMT: COMMON NORMALS: normocephalic HEAD & SCALP: normocephalic MOUTH: Normal oral and palatal mucosa present THROAT: posterior oropharynx normal and uvula midline Eye: COMMON NORMALS: Equal, round and reactive pupils present and EOMs intact bilaterally GENERAL EYE: appearance normal, both eyes and all related structures PUPIL: Yes Equal, round and reactive pupils present Neck/C-Spine: COMMON NORMALS: supple GENERAL: Yes normal visual inspection Lymph: LYMPHATIC: no lymphadenopathy noted Resp: COMMON NORMALS: normal respiratory effort, No retractions, No use of accessory muscles and clear to auscultation bilaterally AUSCULTATION: clear to auscultation bilaterally Cardio: COMMON NORMALS: regular rate, regular rhythm, S1 normal heart sound present, S2 normal heart sound present, No gallops present (Cardio), No clicks present (Cardio), No murmurs present (Cardio) and Peripheral pulses 2+ throughout RATE: regular rate RHYTHM: regular rhythm HEART SOUNDS: S1 normal heart sound present and S2 normal heart sound present PERIPHERAL PULSES: Peripheral pulses 2+ throughout GI: COMMON NORMALS: Normal to inspection, nondistended, normoactive bowel sounds present, Soft to palpation, non-tender and no masses PALPATION: Yes Soft to palpation : COMMON NORMALS: Yes no CVA tenderness BLADDER/KIDNEY EXAM: Yes no CVA tenderness Back/Pelvis: COMMON NORMALS: no CVA tenderness Extremity: GENERAL: Yes normal exam except as noted Neuro: COMMON NORMALS: patient oriented x3, moves all extremities and no sensory deficits noted SENSORIUM/ORIENTATION: Yes alert CRANIAL NERVES: Yes CN VII (facial) Laterality: right CN VII findings: facial droop, unable to raise eyebrow(s) and weak closing of eye(s) SPEECH: speech normal GAIT: Yes Normal gait present SENSORY EXAM: Yes extremities (intact) MOTOR EXAM: 5/5 motor strength present throughout OTHER: Patient has right-sided facial droop. Patient unable to move forehead Skin: COMMON NORMALS: no rashes or lesions noted GENERAL SKIN EXAM: no rashes or lesions noted and dry skin Course Vital Signs: Vital signs: Vital Signs Temperature 98.3 F 09/11/22 12:18 Pulse Rate 97 09/11/22 12:18 Respiratory Rate 16 09/11/22 12:18 Blood Pressure 164/79 09/11/22 12:18 Pulse Oximetry 96 09/11/22 12:18 Oxygen Delivery Me thod 09/11/22 12:18 MDM - Neuro Symptoms/Deficit Medical Decision Making Patient is a 57-year-old female comes to the ED with right-sided facial numbness and weakness. She started feeling symptoms at around 7 PM last night and woke up this morning with right-sided facial droop. Denies any other symptoms such as vision changes or weakness to 1 side of body or numbness or tingling to 1 side of body. Patient has also been having sinus congestion and pain along with a sore throat for the past week. Vitals are stable. Exam shows right facial nerve droop. She is unable to move forehead. Rest of neuro exam shows no deficits. CT of head shows no acute findings. Given patient's exam findings and CT being cleared she is diagnosed with Morrissey's palsy and sinusitis.. She was stable for discharge home and I placed order with case management for patient to be referred to neurologist for follow-up. She was sent home with a prescription for steroid and antibiotic. Strict return to ED precautions given. Patient told to follow-up with PCP as well within the next week. Patient understood and agreed with plan. Lab Data I reviewed the patient's lab results. Radiology Impressions Head CT 09/11/22 12:37 IMPRESSION: 1. No acute intracranial hemorrhage or edema. 2. No mass effect or acute infarct. Discharge Plan Discharge Patient Disposition: Home Clinical Impression: Morrissey's palsy Sinusitis Qualifiers: Sinusitis location: unspecified location Chronicity: acute Recurrence: non-recurrent Qualified Code(s): J01.90 - Acute sinusitis, unspecified Condition: Stable Prescriptions: New Augmentin 500-125 mg tablet 1 tab PO BID 7 Days Qty: 14 0RF prednisone 20 mg tablet 20 mg PO BID 10 Days Qty: 20 0RF No Action omeprazole 40 mg capsule,delayed release(DR/EC) 40 mg PO DAILY Dialyvite Vitamin D3 Max 1,250 mcg (50,000 unit) tablet See Rx Instructions .ROUTE .COMPLEX Rx Instructions: WEEKLY All Day Allergy (cetirizine) 10 mg capsule 10 mg PO BID PRN (Reason: Allergic Symptoms) tramadol 50 mg tablet 50 mg PO Q8H PRN (Reason: Pain) [id number]-[id number] [Butalbital Compound W/Codeine] 99-27-450-40 mg capsule 1 cap PO Q6H PRN (Reason: Migraine Headache) amitriptyline 25 mg tablet 25 mg PO DAILY amlodipine 5 mg tablet 5 mg PO DAILY pregabalin [Lyrica] 100 mg capsule 100 mg PO BID lovastatin 20 mg tablet 20 mg PO DAILY lisinopril 40 mg tablet 40 mg PO DAILY glyburide 5 mg tablet 5 mg PO BID insulin aspart U-100 [Novolog Flexpen U-100 Insulin] 100 unit/mL (3 mL) insulin pen See Rx Instructions SUBCUT TID Rx Instructions: 28 units SUBCUT three times daily; insulin glargine [Lantus U-100 Insulin] 100 unit/mL solution 60 unit SUBCUT BID Trulicity 0.75 mg/0.5 mL pen injector SUBCUT .weekly lorazepam 0.5 mg tablet 0.5 mg PO DAILY PRN (Reason: Anxiety) Qty: 10 0RF venlafaxine [Effexor XR] 150 mg capsule,extended release 24hr 300 mg PO DAILY Qty: 60 2RF escitalopram oxalate [Lexapro] 20 mg tablet 20 mg PO DAILY Qty: 30 2RF bupropion HCl [Wellbutrin XL] 150 mg tablet extended release 24 hr 150 mg PO QAM Qty: 30 2RF naproxen 500 mg tablet 500 mg PO TID 30 Days Qty: 60 0RF Discharge Orders: Discharge ED (Routine); Ordered 09/11/22 Ordered By: Hieu Pinon Referrals: Lacy Rios MD [Primary Care Provider] - Discharge Diet: Regular Discharge Activity: Increase activity as tolerated Patient Instructions: Morrissey Palsy (ED) Activity Restrictions/Additional Instructions: Follow-up with PCP within the next week for reevaluation. Case management should be contacted in the next several days set up an appointment with neurologist for follow-up of Morrissey's palsy. Take medications as prescribed. Return to the ER or your medical provider if condition worsens. Please read and understand discharge instructions. Thank you for choosing [facility] for your healthcare needs today. Please realize this is an emergency room and that we are providing you with a medical screening exam and this may not be complete and all inclusive of all the testing and or work up that you may need to determine your ailment or severity of your illness. It is very important that you follow up as instructed or that you return to the Emergency Department should you have concerns or if your condition changes or worsens in any way. Coding Level of Care Code ED Medicare Biller for [facility] Exam Comprehensive
--- NOTE | 2022-09-12 09:17 | DCPLANNER ---
Addendum entered by Poly Real 09/22/22 12:43: Patient had a follow up appointment scheduled - appointment was cancelled Original Note: country sales manager had message to schedule a follow up appointment for patient with neurology. country sales manager sent patients information to the front office staff at neurology. Patients information will be printed and reviewed. Clinic will call patient with appointment information.
== END 2022-09-11 15:02 | disposition home or self-care (01) ==
PROVIDERS: Emergency Provider Physician Assistant; PCP Internal Medicine
DX: G51.0 Bell's palsy (principal); J01.90 Acute sinusitis, unspecified; Z79.85 Long-term (current) use of injectable non-insulin antidiabetic drugs; Z79.4 Long term (current) use of insulin; E11.9 Type 2 diabetes mellitus without complications; E78.5 Hyperlipidemia, unspecified; I10 Essential (primary) hypertension; Z87.891 Personal history of nicotine dependence
CPT/HCPCS: 70450; 99284

== ENCOUNTER 2022-10-17 15:11 | Outpatient (CLI) | payer OTHER, MEDICAID, SELFPAY ==
--- NOTE | 2022-10-17 15:24 | MR_ITS ---
WS: [id number] MRI LUMBAR SPINE NONCONTRAST HISTORY: DEGENERATIVE DISC DISEASE COMPARISON: 08/25/2017 TECHNIQUE: Sagittal and axial multisequence imaging is submitted. Normal lumbar alignment with no compression fractures or marrow edema. Moderate disc space narrowing and desiccation at L5-S1 similar to the prior study with degenerative e ndplate osteophytes. Conus terminates normally at L1. L1-L2: Normal. L2-L3: Normal. L3-L4: Normal. L4-L5: Mild ligamentum flavum and facet arthritis. No stenosis. L5-S1: Mild annular disc bulge with a LEFT paracentral disc protrusion and osteophyte. Disc protrusio n extends into the LEFT foramen. Disc protrusion seen on the prior study is smaller in size but still encroachment upon the LEFT S1 nerve root. MR/MR lumbar spine wo con* [id number] IMPRESSION: 1. Moderate degenerative disc disease at L5-S1, similar to the prior study. 2. LEFT paracentral and foraminal disc protrusion at L5-S1 with contact upon t he LEFT S1 nerve root.
== END 2022-10-17 15:12 | disposition home or self-care (01) ==
PROVIDERS: PCP Internal Medicine; Visit Provider Internal Medicine
DX: M51.17 Intervertebral disc disorders with radiculopathy, lumbosacral region (principal)
CPT/HCPCS: 72148

== ENCOUNTER → 2022-10-31 15:47 | Outpatient (BNVA) | payer OTHER, MEDICAID, SELFPAY | PROVIDERS: PCP Internal Medicine; Referring Provider Internal Medicine; Visit Provider Orthopaedic Surgery | DX: M48.07 Spinal stenosis, lumbosacral region (principal) | CPT/HCPCS: 72110 ==

== ENCOUNTER 2022-11-24 18:08 | Emergency (ER) | payer OTHER, MEDICAID, SELFPAY ==
[2022-11-24 18:28] VITALS: BP 166/83; PULSE 107; RESP 18; TEMP 36.4; O2SAT 95; BMI 43.0
--- NOTE | 2022-11-24 18:48 | W.ED.FEMALGU ---
HPI - Female Genitourinary General: Chief complaint: Urogenital-Female Stated complaint: bladder pain Time Seen by Provider: 11/24/22 18:47 History of Present Illness: 57-year-old female comes in today with urinary difficulty. Patient reports that for the last 3 days she has had increased urinary frequency with small amounts of urine coming out. Patient appears nontoxic. Patient appears in no acute distress. Patient reports some suprapubic discomfort. Patient does have a history of diabetes mellitus type 2, diabetic neuropathy, hypertension, anxiety, lumbar stenosis, Review of Systems Const: Denies: fever(s) Card: Denies: chest pain Resp: Denies: dyspnea GI: Denies: vomiting : Reports: difficulty voiding and dysuria PFS ED PFSH: Medical History Diabetes mellitus Dyslipidemia Fibromyalgia History of anxiety History of depression History of obstructive sleep apnea Hypertension Psychiatric care Surgical History History of 2 sections History of cholecystectomy History of colonoscopy with polypectomy 2016 2021 - diverticuli History of endometrial ablation Family History Other Cancer Diabetes Social History Smoking and tobacco status: former smoker Quit status (tobacco): has quit using tobacco Year quit tobacco: 1990 Second hand smoke exposure: No Smoking risk assessment/counseling performed?: No Alcohol intake: former Year of sobriety/quit date alcohol: 1989 Desire information about alcohol rehabilitation?: No Counseling given: No Desire information about substance/drug rehabilitation?: No Counseling given: No Household members: spouse and children Marital status: Current occupational status: unemployed Physical Exam Const: COMMON NORMALS: alert HENMT: COMMON NORMALS: normocephalic HEAD & SCALP: normocephalic Neck/C-Spine: COMMON NORMALS: full ROM Resp: COMMON NORMALS: normal respiratory effort and clear to auscultation bilaterally AUSCULTATION: clear to auscultation bilaterally Cardio: COMMON NORMALS: regular rate and regular rhythm RATE: regular rate RHYTHM: regular rhythm GI: COMMON NORMALS: Soft to palpation PALPATION: Yes Soft to palpation : COMMON NORMALS: Yes no CVA tenderness BLADDER/KIDNEY EXAM: Yes no CVA tenderness Back/Pelvis: COMMON NORMALS: no CVA tenderness Extremity: COMMON NORMALS: no pedal edema Neuro: SENSORIUM/ORIENTATION: Yes alert Skin: COMMON NORMALS: turgor normal GENERAL SKIN EXAM: turgor normal Course Vital Signs: Vital signs: Vital Signs Temperature 97.6 F 11/24/22 18:28 Pulse Rate 107 H 11/24/22 18:28 Respiratory Rate 18 11/24/22 18:28 Blood Pressure 166/83 11/24/22 18:28 Pulse Oximetry 95 11/24/22 18:28 Oxygen Delivery Me thod 11/24/22 18:28 MDM - Female Medical Decision Making 57-year-old female comes in today with complaints of bladder spasms and blood in the urine. Patient appears nontoxic. No CVA tenderness is noted. Vital signs are normal. Differential diagnosis includes not limited to cystitis, pyelonephritis, renal calculi. Patient reports no significant pain except for some bladder discomfort and difficulty of urination. No fevers reported. Urine shows some white blood cells and large amount of red blood cells. CBC noted no abnormalities. Urinalysis showed a sodium 133 and blood glucose of 373. Suspect patient probably has a bout of cystitis recommend treatment with antibiotics and follow-up with primary care in 1 week for recheck of urine. Patient reported understanding and agreed to plan. Lab Data 11/24/22 20:13 11/24/22 20:13 Laboratory Results WBC 7.0 10^3/uL (4.0-10.0) 11/24/22 20:13 RBC 4.85 10^6/uL (4.1-5.3) 11/24/22 20:13 Hgb 14.4 g/dL (11.5-15.3) 11/24/22 20:13 Hct 42.4 % (37.0-47.0) 11/24/22 20:13 MCV 87.4 fl (81-99) 11/24/22 20:13 MCH 29.7 pg (28.0-34.0) 11/24/22 20:13 MCHC 34.0 g/dL (30.0-36.0) 11/24/22 20:13 RDW 12.5 % (12.1-15.1) 11/24/22 20:13 Plt Count 210 10^3/cmm (130-400) 11/24/22 20:13 MPV 9.9 fL (7.4-10.4) 11/24/22 20:13 Neut % (Auto) 59.9 % 11/24/22 20:13 Lymph % (Auto) 30.2 % 11/24/22 20:13 [place] % (Auto) 7.8 % 11/24/22 20:13 Eos % (Auto) 1.3 % 11/24/22 20:13 Baso % (Auto) 0.4 % 11/24/22 20:13 Neut # (Auto) 4.21 10^3/uL (1.8-7.7) 11/24/22 20:13 Lymph # (Auto) 2.1 10^3/uL (0.8-4.8) 11/24/22 20:13 [place] # (Auto) 0.6 10^3/uL (0.2-0.9) 11/24/22 20:13 Eos # (Auto) 0.1 10^3/uL (0.0-0.8) 11/24/22 20:13 Baso # (Auto) 0.0 10^3/uL (0.0-0.1) 11/24/22 20:13 Nucleated RBC % (auto) 0 % 11/24/22 20:13 Nucleated RBCs # 0.0 /100WBC 11/24/22 20:13 Sodium 133 mmol/L (136-145) L 11/24/22 20:13 Potassium 3.9 mmol/L (3.5-5.1) 11/24/22 20:13 Chloride 96 mmol/L (98-107) L 11/24/22 20:13 Carbon Dioxide 26 mmol/L (22-29) 11/24/22 20:13 Anion Gap 14.9 (5-19) 11/24/22 20:13 BUN 8 mg/dL (6-20) 11/24/22 20:13 Creatinine 0.6 mg/dL (0.5-0.9) 11/24/22 20:13 GFR Calculation 103.0 mL/min (90-130) 11/24/22 20:13 Glucose 373 mg/dL (65-115) H 11/24/22 20:13 Calculated Osmolality 290 mOsm/kg (285-295) 11/24/22 20:13 Calcium 9.1 mg/dL (8.5-10.5) 11/24/22 20:13 Total Bilirubin 0.6 mg/dL (0.15-1.2) 11/24/22 20:13 AST 20 U/L (0-32) 11/24/22 20:13 ALT 22 U/L (0-33) 11/24/22 20:13 Alkaline Phosphatase 123 U/L (35-105) H 11/24/22 20:13 Total Protein 6.4 g/dL (6.6-8.7) L 11/24/22 20:13 Albumin 3.8 g/dL (3.5-5.2) 11/24/22 20:13 Globulin 2.6 g/dL (1.3-4.6) 11/24/22 20:13 Urine Color Yellow (Yellow) 11/24/22 19:35 Urine Appearance Hazy (CLEAR) A 11/24/22 19:35 Urine pH 5 (5-7) 11/24/22 19:35 Ur Specific [place] 1.020 (1.005-1.030) 11/24/22 19:35 Urine Protein Trace (Negative) 11/24/22 19:35 Urine Glucose (UA) 4+ (Normal) H 11/24/22 19:35 Urine Ketones 1+ (Negative) H 11/24/22 19:35 Urine Blood 3+ (Negative) H 11/24/22 19:35 Urine Nitrate Negative (Negative) 11/24/22 19: Urine Bilirubin Neg (Negative) 11/24/22 19:35 Urine Urobilinogen Neg mg/dL (Negative) 11/24/22 19:35 Ur Leukocyte Esterase 1+ (Negative) H 11/24/22 19:35 Urine RBC Too numerous to cnt /hpf (0-2) H 11/24/22 19:35 Urine WBC 15-25 /hpf (0-5) H 11/24/22 19:35 Ur Squamous Epith Cells 0-4 /hpf (0-5) H 11/24/22 19:35 Amorphous Sediment Not Reportable 11/24/22 19:35 Urine Bacteria 1+ /hpf (NONE) H 11/24/22 19:35 Urine Mucus Trace /hpf 11/24/22 19:35 Discharge Plan Discharge Patient Disposition: Home Clinical Impression: Cystitis Condition: Stable Prescriptions: New cefdinir 300 mg capsule 300 mg PO BID 7 Days Qty: 14 0RF No Action omeprazole 40 mg capsule,delayed release(DR/EC) 40 mg PO DAILY Dialyvite Vitamin D3 Max 1,250 mcg (50,000 unit) tablet See Rx Instructions .ROUTE .COMPLEX Rx Instructions: WEEKLY All Day Allergy (cetirizine) 10 mg capsule 10 mg PO BID PRN (Reason: Allergic Symptoms) tramadol 50 mg tablet 50 mg PO Q8H PRN (Reason: Pain) [id number] [Butalbital Compound W/Codeine] 13-85-087-40 mg capsule 1 cap PO Q6H PRN (Reason: Migraine Headache) amitriptyline 25 mg tablet 25 mg PO DAILY amlodipine 5 mg tablet 5 mg PO DAILY pregabalin [Lyrica] 100 mg capsule 100 mg PO BID lovastatin 20 mg tablet 20 mg PO DAILY lisinopril 40 mg tablet 40 mg PO DAILY glyburide 5 mg tablet 5 mg PO BID insulin aspart U-100 [Novolog FlexPen U-100 Insulin] 100 unit/mL (3 mL) insulin pen See Rx Instructions SUBCUT TID Rx Instructions: 28 units SUBCUT three times daily; insulin glargine [Lantus U-100 Insulin] 100 unit/mL solution 60 unit SUBCUT BID Trulicity 0.75 mg/0.5 mL pen injector SUBCUT .weekly lorazepam 0.5 mg tablet 0.5 mg PO DAILY PRN (Reason: Anxiety) Qty: 10 0RF venlafaxine [Effexor XR] 150 mg capsule,extended release 24hr 300 mg PO DAILY Qty: 60 2RF escitalopram oxalate [Lexapro] 20 mg tablet 20 mg PO DAILY Qty: 30 2RF naproxen 500 mg tablet 500 mg PO TID 30 Days Qty: 60 0RF bupropion HCl [Wellbutrin XL] 300 mg tablet extended release 24 hr 300 mg PO QAM Qty: 30 2RF Discharge Orders: Discharge ED (Routine); Ordered 11/24/22 Ordered By: Jere Quinteros Referrals: Lacy Rios MD [Primary Care Provider] - Discharge Diet: Usual diet Discharge Activity: Increase activity as tolerated Patient Instructions: Urinary Tract Infection in Women (ED) Activity Restrictions/Additional Instructions: Drink plenty of fluids. Take antibiotic as directed. Follow-up with primary care in 3 to 5 days for recheck. Return to ED for worsening symptoms such as uncontrolled pain, fever greater than 100.4, inability to hold fluids down, or new concerns. 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
[2022-11-24 20:22] LABS: Basophils % 0.4 %; Eosinophils # 0.1 10^3/uL (0.0-0.8); Eosinophils % 1.3 %; Hematocrit 42.4 % (37.0-47.0); Hemoglobin 14.4 g/dL (11.5-15.3); Lymphocytes # 2.1 10^3/uL (0.8-4.8); Lymphocytes % 30.2 %; Mean Corpuscular Hemoglobin 29.7 pg (28.0-34.0); Mean Corpuscular Volume 87.4 fl (81-99); Mean Platelet Volume 9.9 fL (7.4-10.4); Monocytes # 0.6 10^3/uL (0.2-0.9); Monocytes % 7.8 %; Neutrophils # 4.21 10^3/uL (1.8-7.7); Neutrophils % 59.9 %; Nucleated Red Blood Cells % 0 %; Platelet Count 210 10^3/cmm (130-400); Red Blood Count 4.85 10^6/uL (4.1-5.3); Red Cell Distribution Width 12.5 % (12.1-15.1)
[2022-11-24 20:37] LABS: Urine Appearance Hazy (CLEAR); Urine Color Yellow (Yellow); pH Urine 5 (5-7)
[2022-11-24 20:38] LABS: Add Urine Microscopic? YES; Bilirubin Urine Neg (Negative); Blood Urine 3+ (Negative); Glucose Urine UA 4+ (Normal); Ketones Urine 1+ (Negative); Leukocyte Esterase Urine 1+ (Negative); Nitrate Urine Negative (Negative); Protein Urine Trace (Negative); Urobilinogen Urine Neg (Negative)
[2022-11-24 20:40] LABS: Alanine Aminotransferase 22 U/L (0-33); Albumin Level 3.8 g/dL (3.5-5.2); Alkaline Phosphatase 123 U/L (35-105); Aspartate Amino Transferase 20 U/L (0-32); Blood Urea Nitrogen 8 mg/dL (6-20); Calcium 9.1 mg/dL (8.5-10.5); Carbon Dioxide 26 mmol/L (22-29); Chloride 96 mmol/L (98-107); Globulin 2.6 g/dL (1.3-4.6); Glucose 373 mg/dL (65-115); Osmolality Calculated 290 mOsm/kg (285-295); Sodium 133 mmol/L (136-145); Total Bilirubin 0.6 mg/dL (0.15-1.2); Total Protein 6.4 g/dL (6.6-8.7)
[2022-11-24 20:43] LABS: Anion Gap 14.9 (5-19)
[2022-11-24 20:44] LABS: Potassium 3.9 mmol/L (3.5-5.1)
[2022-11-24 20:48] LABS: RBC Urine TOO NUMEROUS TO CNT /hpf (0-2); Squamous Epithelial Cell Urine 0-4 /hpf (0-5)
[2022-11-24 20:49] LABS: Add Urine Culture? Yes; Bacteria Urine 1+ /hpf; Mucus Urine TRACE /hpf; WBC Urine 15-25 /hpf (0-5)
[2022-11-24] MEDS: cefTRIAXone 1,000 MG in water for injection-sterile 2.1 ML 2.1 MG IM (21:05)
== END 2022-11-24 21:06 | disposition home or self-care (01) ==
PROVIDERS: Emergency Medicine; Emergency Provider Nurse Practitioner Family; PCP Internal Medicine
DX: N30.90 Cystitis, unspecified without hematuria (principal); Z79.4 Long term (current) use of insulin; Z79.85 Long-term (current) use of injectable non-insulin antidiabetic drugs; E11.9 Type 2 diabetes mellitus without complications; E78.5 Hyperlipidemia, unspecified; I10 Essential (primary) hypertension; Z87.891 Personal history of nicotine dependence
CPT/HCPCS: 80053; 81001; 85025; 87077; 87086; 87186; 96372; 99284; J0696

== ENCOUNTER 2023-04-01 10:04 | Emergency (ER) | payer OTHER, MEDICAID, SELFPAY ==
[2023-04-01 10:06] VITALS: BP 128/72; PULSE 100; RESP 20; O2SAT 95; BMI 40.6
--- NOTE | 2023-04-01 10:32 | XRR_ITS ---
PROCEDURE INFORMATION: Exam: XR Lumbosacral Spine Exam date and time: 04/01/2023 11:12 AM Age: 57 years old Clinical indication: Injury or trauma; Fall; Blunt trauma (contusions or hematomas); Additional info: Fall, pain TECHNIQUE: Imaging protocol: Radiologic exam of the lumbosacral spine. Views: 2 or 3 views. COMPARISON: CR XR lumbar spine min 4V [id number] 10/31/2022 3:48 PM FINDINGS: Bones/joints: Lumbar curvature and alignment is unchanged and unremarkable. There is interval development of a mild wedge-shaped compression fracture of L2 vertebral body. There is a linear lucency projecting over the superior aspect of the pedicle that may be posttraumatic in nature. There is also Luís small linear shaped bony density projecting over the spinal canal at L2-L3 that was not present previously and may be posttraumatic in nature. Findings could be better assessed on CT exam. There are moderate degenerative changes L5-S1, stable. Soft tissues: Unremarkable. XR/XR lumbar spine 2-3V* [id number] IMPRESSION: Interval development of mild wedge-shaped compression fracture L2 with questionable extension into the pedicle and unexplained bone density projecting within the spinal canal for which follow-up CT examination lumbar spine recommended for further assessment.
--- NOTE | 2023-04-01 10:32 | XRR_ITS ---
PROCEDURE INFORMATION: Exam: XR Left Hip Exam date and time: 04/01/2023 11:12 AM Age: 57 years old Clinical indication: Injury or trauma; Fall; Blunt trauma (contusions or hematomas); Left; Hip; Additional info: Fall, pain TECHNIQUE: Imaging protocol: Radiologic exam of the left hip. Views: 2 or 3 views hip with pelvis when performed. COMPARISON: CT abdomen pelvis wo/w [id number] 05/09/2021 12:47 PM FINDINGS: Bones/joints: Unremarkable. No acute fracture. Soft tissues: Unremarkable. XR/XR hip LT 2-3V wo/w pel* [id number] IMPRESSION: No acute findings.
--- NOTE | 2023-04-01 10:58 | W.ED.FALL ---
HPI - Fall General: Chief Complaint: Fall Stated Complaint: Fall, Left hip pain and back pain Time Seen by Provider: 04/01/23 10:07 History of Present Illness: Ms. Cruz is a 57-year-old lady with history of degenerative disc disease presenting to the emergency department for fall with back and hip pain. She reports being at her baseline health and slipped on a piece of wood on an incline falling backwards landing on her back. She did hit her head but did not lose consciousness. She is not on anticoagulation. Immediately had severe pain primarily in the low back and left hip/pelvis region. Worse with ambulation and movement. No other specific changes in health, exacerbating, or alleviating factors identified. Onset (ago): minute(s) Fall from: standing Fall witnessed: yes, by family Loss of consciousness: None Symptoms prior to fall: none Context: tripped/slipped Severity: severe Review of Systems General: Reports: 10 or more systems reviewed and unremarkable except in HPI and below PFSH ED PFSH: Medical History Diabetes mellitus Dyslipidemia Fibromyalgia History of anxiety History of depression History of obstructive sleep apnea Hypertension Psychiatric care Surgical History History of 2 sections History of cholecystectomy History of colonoscopy with polypectomy 2016 2021 - diverticuli History of endometrial ablation Family History Other Cancer Diabetes Social History Smoking and tobacco status: former smoker Quit status (tobacco): has quit using tobacco Year quit tobacco: 1990 Second hand smoke exposure: No Smoking risk assessment/counseling performed?: No Alcohol intake: former Year of sobriety/quit date alcohol: 1989 Desire information about alcohol rehabilitation?: No Counseling given: No Substance/Drug Use: former Desire information about substance/drug rehabilitation?: No Counseling given: No Household members: spouse and children Marital status: Current occupational status: unemployed Physical Exam Const: COMMON NORMALS: alert GENERAL APPEARANCE: cooperative and well developed HENMT: COMMON NORMALS: normocephalic and atraumatic HEAD & SCALP: normocephalic and atraumatic Eye: COMMON NORMALS: conjunctivae normal CONJUNCTIVA: Yes conjunctivae normal SCLERA: sclerae normal Neck/C-Spine: COMMON NORMALS: supple GENERAL: Yes trachea midline Resp: COMMON NORMALS: clear to auscultation bilaterally EFFORT & INSPECTION: Yes able to speak in complete sentences AUSCULTATION: clear to auscultation bilaterally Cardio: COMMON NORMALS: regular rate and regular rhythm RATE: regular rate RHYTHM: regular rhythm GI: COMMON NORMALS: Soft to palpation PALPATION: Yes Soft to palpation and No Tenderness to palpation present (GI) Back/Pelvis: OTHER: Left lumbar paraspinal and pelvis tenderness palpation on the back. Extremity: GENERAL: Yes normal exam except as noted and No edema Neuro: COMMON NORMALS: moves all extremities SENSORIUM/ORIENTATION: Yes alert and No Orientation impaired Psych: COMMON NORMALS: mental status grossly normal and Normal thought process present THOUGHT PROCESS: Normal thought process present Course Vital Signs: Vital signs: Vital Signs Pulse Rate 91 04/01/23 13:26 Respiratory Rate 16 04/01/23 13:26 Blood Pressure 128/72 04/01/23 10:06 Pulse Oximetry 95 04/01/23 10:06 Oxygen Delivery Me thod Room Air 04/01/23 10:06 MDM - Fall Medical Decision Making 57-year-old lady presenting with mechanical fall. Head to toe exam performed. No indication for labs. Hip x-rays negative. Lumbar spine with possible abnormality. Given abnormality CT is warranted. The abnormality observed on x-ray is not appreciated on CT. Incidental findings noted and discussed with the patient. Moderate improvement with morphine, Zanaflex, Toradol. No red flag symptoms. The results of ED evaluation were discussed with the patient including prescriptions and/or symptomatic cares (if applicable) including appropriate and responsible use, followup plan, and return precautions. The patient verbalized understanding and felt safe for discharge. Medical Records I reviewed the patient's medical records. Lab Data I reviewed the patient's lab results. Radiology Impressions Hip/Pelvis X-Ray 04/01/23 10:32 IMPRESSION: No acute findings. Lumbar Spine X-Ray 04/01/23 10:32 IMPRESSION: Interval development of mild wedge-shaped compression fracture L2 with questionable extension into the pedicle and unexplained bone density projecting within the spinal canal for which follow-up CT examination lumbar spine recommended for further assessment. Lumbar Spine CT 04/01/23 12:06 IMPRESSION: 1. There is osteoarthritis with L5-S1 left-side degenerative foraminal stenosis 2. Otherwise no acute cervical spine bony abnormality. 3. Cholecystectomy Discharge Plan Discharge Patient Disposition: Home Clinical Impression: Fall, Acute exacerbation of chronic low back pain Condition: Stable Prescriptions: New oxycodone 5 mg tablet 5 mg PO Q4H PRN (Reason: pain) Qty: 10 0RF cyclobenzaprine 10 mg tablet 10 mg PO TID PRN (Reason: muscle spasm) Qty: 20 0RF No Action omeprazole 40 mg capsule,delayed release(DR/EC) 40 mg PO DAILY Dialyvite Vitamin D3 Max 1,250 mcg (50,000 unit) tablet See Rx Instructions .ROUTE .COMPLEX Rx Instructions: WEEKLY All Day Allergy (cetirizine) 10 mg capsule 10 mg PO BID PRN (Reason: Allergic Symptoms) tramadol 50 mg tablet 50 mg PO Q8H PRN (Reason: Pain) [id number] [Butalbital Compound W/Codeine] [id number] mg capsule 1 cap PO Q6H PRN (Reason: Migraine Headache) amitriptyline 25 mg tablet 25 mg PO DAILY amlodipine 5 mg tablet 5 mg PO DAILY pregabalin [Lyrica] 100 mg capsule 100 mg PO BID lovastatin 20 mg tablet 20 mg PO DAILY lisinopril 40 mg tablet 40 mg PO DAILY glyburide 5 mg tablet 5 mg PO BID insulin aspart U-100 [Novolog FlexPen U-100 Insulin] 100 unit/mL (3 mL) insulin pen 50 unit SUBCUT TID Rx Instructions: Fifty units plus scale. insulin glargine [Lantus U-100 Insulin] 100 unit/mL solution 65 unit SUBCUT BID venlafaxine [Effexor XR] 150 mg capsule,extended release 24hr 300 mg PO DAILY Qty: 60 2RF escitalopram oxalate [Lexapro] 20 mg tablet 20 mg PO DAILY Qty: 30 2RF bupropion HCl [Wellbutrin XL] 300 mg tablet extended release 24 hr 300 mg PO QAM Qty: 30 2RF lorazepam 0.5 mg tablet 0.5 mg PO DAILY PRN (Reason: Anxiety) Qty: 10 0RF Trulicity 0.75 mg/0.5 mL pen injector 1.5 mg SUBCUT .weekly naproxen 500 mg tablet 500 mg PO TID 30 Days Qty: 60 0RF Discharge Orders: Discharge ED (Routine); Ordered 04/01/23 Ordered By: Hood Smith Referrals: Lacy Rios MD [Primary Care Provider] - Discharge Diet: Usual diet Discharge Activity: Increase activity as tolerated Patient Instructions: Back Pain (ED), Opioid Safety, Pain Management Activity Restrictions/Additional Instructions: Thank you for visiting the emergency department. You were seen and evaluated for back pain after fall. No new internal injuries were identified, you do have known degenerative changes. We are pleased that you had improvement with treatment in the emergency department. You may use [id number] medications such as acetaminophen and ibuprofen for pain however please do not exceed the daily recommended dosage as listed on the packaging and please keep in mind that many namebrand medications contain the same active ingredients. Please avoid these medications if previously instructed to do so by another physician due to other underlying medical condition. I will prescribe oxycodone, use this cautiously and do not take at the same time as other opioids or sedating medications as discussed. Please follow-up with your primary care provider and back specialist team. Return to the emergency department for uncontrolled pain, weakness, loss of control of bowel or bladder, or anything else that you are concerned about and feel needs emergency department evaluation. 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
[2023-04-01 11:54] VITALS: RESP 16
[2023-04-01] MEDS: morphine 4 mg/mL SDV 1 mL IM (11:54)
[2023-04-01] MEDS: tizanidine 4 mg Tablet PO (11:54)
[2023-04-01] MEDS: ketorolac 30 mg/mL INJ 15 MG IM (11:55)
--- NOTE | 2023-04-01 12:06 | CTR_ITS ---
PROCEDURE INFORMATION: Exam: CT Lumbar Spine Without Contrast Exam date and time: 04/01/2023 12:36 PM Age: 57 years old Clinical indication: Injury or trauma; Fall; Blunt trauma (contusions or hematomas); Additional info: Fall, back pain, abnormal XR TECHNIQUE: Imaging protocol: Computed tomography of the lumbar spine without contrast. Radiation optimization: All CT scans at this facility use at least one of these dose optimization techniques: automated exposure control; mA and/or kV adjustment per patient size (includes targeted exams where dose is matched to clinical indication); or iterative reconstruction. REPORTING DATA: Count of CT and Cardiac NM exams in prior 12 months: This patient has received [address] and 0 known cardiac nuclear medicine studies in the 12 months prior to the current study. COMPARISON: MR lumbar spine wo con* [id number] 10/17/2022 3:56 PM RADIATION DOSE METRICS: Total DLP (mGy-cm): 1042.5 FINDINGS: Bones/joints: No acute fracture. Normal alignment. No significant disc bulge or herniation. There is a large bone spur present in the posterior left L5 vertebral body corresponding narrowing of the neural foramen . These findings are consistent with degenerative foraminal stenosis. The remainder of the spine shows no significant neural foraminal narrowing. Soft tissues: There is evidence of cholecystectomy. CT/CT lumbar spine wo con* [id number] IMPRESSION: 1. There is osteoarthritis with L5-S1 left-side degenerative foraminal stenosis 2. Otherwise no acute cervical spine bony abnormality. 3. Cholecystectomy
[2023-04-01 13:26] VITALS: PULSE 91; RESP 16
== END 2023-04-01 13:27 | disposition home or self-care (01) ==
PROVIDERS: Emergency Provider Emergency Medicine; PCP Internal Medicine
DX: G89.29 Other chronic pain (principal); M54.50 Low back pain, unspecified; Z79.85 Long-term (current) use of injectable non-insulin antidiabetic drugs; Z79.4 Long term (current) use of insulin; Z87.891 Personal history of nicotine dependence; E11.9 Type 2 diabetes mellitus without complications; E78.5 Hyperlipidemia, unspecified; I10 Essential (primary) hypertension
CPT/HCPCS: 72100; 72131; 73502; 96372; 99284; J1885; J2270

== ENCOUNTER 2023-07-12 11:24 | Outpatient (CLI) | payer OTHER, SELFPAY ==
--- NOTE | 2023-07-12 11:31 | MM_ITS ---
WS: [id number] BILATERAL SCREENING DIGITAL TOMOSYNTHESIS MAMMOGRAM WITH CAD HISTORY: SCREENING COMPARISON: 03/03/2022 and 01/12/2021 Bilateral CC and MLO views with tomosynthesis and synthetic mammography submitted. Computer aided det ection analyzed. Breast composition: There are scattered areas of fibroglandular density. No suspicious masses, microc alcifications or architectural distortion. Benign calcifications in each breast. IMPRESSION: MM/[place] [id number] BI-RADS: 2-Benign FOLLOW UP: 1 Year Follow-up
== END 2023-07-12 11:25 | disposition home or self-care (01) ==
PROVIDERS: PCP Internal Medicine; Visit Provider Internal Medicine
DX: Z12.31 Encounter for screening mammogram for malignant neoplasm of breast (principal)
CPT/HCPCS: 77063; 77067

== ENCOUNTER → 2023-10-02 15:00 | Outpatient (BNVA) | payer OTHER, MEDICAID, SELFPAY ==
[2023-07-13 16:32] VITALS: BP 137/74; BMI 41.5
== END ==
PROVIDERS: PCP Internal Medicine; Visit Provider Obstetrics & Gynecology
DX: Z12.4 Encounter for screening for malignant neoplasm of cervix (principal)
CPT/HCPCS: 88175

== ENCOUNTER 2023-11-02 08:24 | Outpatient (CLI) | payer OTHER, MEDICAID, SELFPAY ==
[2023-07-13 16:32] VITALS: BP 137/74; BMI 41.5
--- NOTE | 2023-11-02 08:45 | US_ITS ---
WS: [id number] US transvaginal [id number] HISTORY: N94.10 - Unspecified dyspareunia COMPARISON: 10/02/2007 Uterus: 6.7 cm x 4.7 cm x 3.7 cm. Normal size retroverted uterus. No fibroid or mass identified. Endometrium: 0.4 cm. Normal. No mass. Right ovary: 2.0 cm x 1.3 cm x 1.5 cm. Normal size. Vascularity is difficult to visualize. This is pr obably due to position of the ovary. No cystic or solid masses. Left ovary: Not identified. No adnexal mass. No free fluid in the cul-de-sac. IMPRESSION: 1. Retroverted normal-sized uterus. 2. LEFT ovary not identified. 3. Negative RIGHT ovary.
== END 2023-11-02 08:25 | disposition home or self-care (01) ==
PROVIDERS: PCP Internal Medicine; Visit Provider Obstetrics & Gynecology
DX: N94.10 Unspecified dyspareunia (principal); N85.4 Malposition of uterus
CPT/HCPCS: 76830

== ENCOUNTER → 2023-11-27 11:38 | Outpatient (BNVA) | payer OTHER, MEDICAID, SELFPAY ==
[2023-07-13 16:32] VITALS: BP 137/74; BMI 41.5
== END ==
PROVIDERS: PCP Internal Medicine; Visit Provider Orthopaedic Surgery
DX: M48.062 Spinal stenosis, lumbar region with neurogenic claudication (principal)
CPT/HCPCS: 36415; 80053; 81001; 85025; 87077; 87086; 87186

== ENCOUNTER → 2023-12-06 13:54 | Outpatient (BNVA) | payer OTHER, MEDICAID, SELFPAY ==
[2023-07-13 16:32] VITALS: BP 137/74; BMI 41.5
== END ==
PROVIDERS: PCP Internal Medicine; Visit Provider Family Medicine
DX: Z01.818 Encounter for other preprocedural examination (principal)
CPT/HCPCS: 81003

== ENCOUNTER 2023-12-10 16:08 | Observation (INO) | payer OTHER, MEDICAID, SELFPAY ==
[2023-07-13 16:32] VITALS: BP 137/74; BMI 41.5
[2023-12-10] VITALS (26 sets, daily range): BP systolic 96–153; BP diastolic 54–84; PULSE 91–109; RESP 10–28; TEMP 36.4–37.1; O2SAT 90–96; BMI 41.4; BMI 41.3
--- NOTE | 2023-12-10 | XR_ITS ---
WS: [id number] Lumbar spine, C ARM fluoroscopy views, 12/10/2023 Clinical Data: [facility] PICS Comparison: Lumbar spine, 04/01/2023 Findings: Dr. Guardado performed a posterior lumbar fusion. Impression: Posterior lumbar fusion.
[2023-12-10] MEDS: sodium chloride 0.9% 1,000 ML 30 ML IV (10:36)
[2023-12-10 10:50] LABS: Glucose Point of Care 351 mg/dL (70-110)
[2023-12-10] MEDS: insulin regular-human 100 units/1 mL 15 UNIT IVP (11:04)
[2023-12-10] MEDS: methadone 10 mg Tablet PO (11:08)
--- NOTE | 2023-12-10 11:10 | SUR.PREOP ---
MEDICATED PER ANESTHESIA.
--- NOTE | 2023-12-10 11:13 | ANES.PREANE2 ---
Pre-Anesthetic Assessment Height/Weight: Height 1.75 m Weight 127.286 kg Temp Pulse Resp BP Pulse Ox O2 Del Method 97.9 F 94 18 148/76 95 Room Air 12/10/23 10:06 12/10/23 10:06 12/10/23 10:06 12/10/23 10:06 12/10/23 10:06 12/10/23 10:06 Preop Diagnosis: Lumbar stenosis with neurogenic claudication Operation Date: 12/10/23 11:30 Proposed Procedures p Posterior Lumbar Interbody Fusion(Not Applicable) - Troy Guardado, DO Familial anesthetic complications: None Was Beta Lauren taken within 24 hours: N/A Was Clonidine taken within 24 hours: N/A Last intake: Intake Last Liquid Date 12/09/23 Last Liquid Time 22:00 Last Solid Date 12/09/23 Last Solid Time 19:00 Social No alcohol and No tobacco Exam alert, oriented x 3, clear to auscultation bilaterally and regular rate & rhythm Airway Submandibular: within normal limits Cervical ROM: within normal limits Mallampati: Class II Dentition: chipped Comments: Comments: TMJ Pulmonary Sleep Apnea CV/HEM Hypertension GI Gastroesophageal Reflux Disease Metabolic Diabetes Mellitus, Hyperlipidemia and Morbid Obesity Musc/skel Lower Back Pain chronic pain Anesthetic Plan ASA status: 3 Anesthesia: General Risk of > 500 ml blood loss (7ml/kg in children): Yes, adequate IV access and fluids planned Medications/Allergies Home Medications Medication Instructions Recorded Confirmed Last Taken Type amitriptyline 25 mg tablet 25 mg PO BEDTIME 02/15/21 12/10/23 12/09/23 History amlodipine 5 mg tablet 5 mg PO DAILY 02/15/21 12/10/23 12/10/23 History cetirizine 10 mg capsule (All Day 10 mg PO BID PRN Allergic Symptoms 02/15/21 12/07/23 12/07/23 History Allergy (cetirizine)) cholecalciferol (vitamin D3) 1,250 See Rx Instructions .Route .COMPLEX 02/15/21 12/07/23 12/06/23 History mcg (50,000 unit) tablet (Dialyvite Vitamin D3 Max) lisinopril 40 mg tablet 40 mg PO BEDTIME 02/15/21 12/10/23 12/09/23 History lovastatin 20 mg tablet 20 mg PO BEDTIME 02/15/21 12/10/2312/07/24 History omeprazole 40 mg capsule,delayed 40 mg PO DAILY 02/15/21 12/10/23 12/10/23 History release pregabalin 100 mg capsule (Lyrica) 100 mg PO BID 02/15/21 12/10/23 12/10/23 History tramadol 50 mg tablet 50 mg PO Q8H PRN Pain 02/15/21 12/07/23 12/06/23 History hydroxyzine HCl 50 mg tablet 50 mg PO QID PRN insomnia #120 tabs 09/03/23 12/07/23 12/06/23 Rx aspirin 81 mg tablet,delayed 81 mg PO DAILY 10/02/23 12/07/23 12/03/23 History release (Adult Low Dose Aspirin) bupropion HCl 300 mg 24 hr tablet, 300 mg PO QAM #30 tabs 11/02/23 12/10/23 12/10/23 Rx extended release (Wellbutrin XL) escitalopram oxalate 20 mg tablet 20 mg PO DAILY #30 tabs 11/02/23 12/10/23 12/10/23 Rx (Lexapro) exenatide 5 mcg/dose (250 5 mcg SUBCUT BID 11/02/23 12/10/23 12/01/23 History mcg/mL)1.2 mL subcutaneous pen injector (Byetta) insulin aspart U-100 100 unit/mL 100 unit SUBCUT TID 11/02/23 12/10/23 12/09/23 History (3 mL) subcutaneous pen (Novolog FlexPen U-100 Insulin aspart) estradiol 2 mg (7.5 mcg/24 hour) 1 vag ring vaginal Q90D #1 ea 11/06/23 12/07/23 Unknown Rx vaginal ring (Estring) rzjtpvkrfm-inzikbcgsgpoj-qhasoqmi 1 cap PO Q4H PRN prn 12/04/23 12/07/23 Unknown History 50 mg-325 mg-40 mg capsule fluconazole 150 mg tablet 150 mg PO DAILY #1 tab 12/04/23 12/10/23 12/10/23 Rx montelukast 10 mg tablet 10 mg PO DAILY 12/04/23 12/10/23 12/10/23 History (Singulair) insulin glargine 100 unit/mL (3 100 unit SUBCUT BID 12/10/23 12/10/2324 History mL) subcutaneous pen (Lantus Solostar U-100 Insulin) venlafaxine 150 mg 300 mg PO BEDTIME 12/10/23 12/10/23 12/09/23 History capsule,extended release 24 hr (Effexor XR) Allergies Allergy/AdvReac Type Severity Reaction Status Date / Time latex Allergy Severe anaphlactic Verified 12/07/23 10:10 P[place]ans Allergy Severe Anaphylaxis Uncoded 12/07/23 10:10 tape Allergy rash Uncoded 12/07/23 10:10 Current Medications Generic Name Dose Route Start Last Admin Trade Name Freq PRN Reason Stop Dose Admin Sodium Chloride 1,000 mls @ 30 mls/hr 12/10/23 10:00 12/10/23 10:36 Sodium Chloride 0.9% IV 12/11/23 09:59 30 mls/hr .Q24H TJ Administration PFSH Anesthesia Medical History Psychiatric care Dyslipidemia History of obstructive sleep apnea History of depression History of anxiety Hypertension Fibromyalgia Diabetes mellitus Surgical History History of endometrial ablation History of cholecystectomy History of colonoscopy with polypectomy 2016 2021 - diverticuli History of 2 sections Family History Sister Ovarian cancer Diabetes Mother Heart disease Hypertension Thyroid disease Father Heart disease Hyperlipidemia Hypertension Diabetes Grandmother Heart disease Hyperlipidemia Hypertension Breast cancer Stroke Grandfather Heart disease Hyperlipidemia Hypertension Other Cancer Denies family history of Colon cancer Uterine cancer Social History Smoking and tobacco/nicotine status: former use of tobacco/nicotine Quit status (tobacco/nicotine): has quit using Year quit tobacco: 1990 Second hand smoke exposure: No Alcohol intake: former Year of sobriety/quit date alcohol: 1989 Substance/Drug Use: former Household members: spouse and children Marital status: Current occupational status: unemployed Data Anesthesia Cardiac Studies: No Data to Display
[2023-12-10] MEDS: midazolam 1 mg/mL INJ 2 mL 2 MG IVP (12:24)
--- NOTE | 2023-12-10 12:56 | W.PM.OPSUD ---
Surgery/Procedure H&P Update DATE OF PROCEDURE: December 10, 2023 DATE H&P PERFORMED: 12/04/23 H&P UPDATE INFORMATION: I have reviewed H&P completed within last 30 days, I have examined patient prior to procedure and No changes to prior documentation PREOP DIAGNOSIS: Lumbar stenosis with neurogenic claudication PLANNED PROCEDURE: Operation Date: 12/10/23 11:30 Proposed Procedures p Posterior Lumbar Interbody Fusion(Not Applicable) - Troy Guardado DO
[2023-12-10] MEDS: ceFAZolin 3,000 MG in sodium chloride 0.9% (plus) 100 ML 200 MG IV (13:52)
[2023-12-10] MEDS: lidocaine-epi 2% PF 1:200,000 20 mL SDV XX (14:10)
[2023-12-10] MEDS: vancomycin 1,000 MG SDV 1000 MG XX (15:03)
[2023-12-10] MEDS: heparin, porcine 1,000 unit/mL INJ 10 mL 10000 UNIT IRRIGATION (15:06)
--- NOTE | 2023-12-10 16:15 | PM.OP ---
Operative Report Date of procedure: December 10, 2023 Pre-op diagnosis: Lumbar stenosis with neurogenic claudication Post-op diagnosis: same Procedure done: 1. L5/S1 Interbody fusion with posterolateral fusion 2. Instrumentation L5-S1 3. Cage at L5/S1 4. L5/S1 Laminectomy with facetectomies 5. use of autograft from same incision 6. allograft 7. Bone marrow aspirate from right iliac crest 8. Use of computer navigation/stereotactic spine Surgeon: Troy Guardado DO Estimated blood loss (mL): 50 Procedure: 1. L5/S1 Interbody fusion with posterolateral fusion 2. Instrumentation L5-S1 3. Cage at L5/S1 4. L5/S1 Laminectomy with facetectomies 5. use of autograft from same incision 6. allograft 7. Bone marrow aspirate from right iliac crest 8. Use of computer navigation/stereotactic spine Patient is brought to the operative suite. After undergoing anesthesia, the patient had neuro monitoring attached. Patient was then placed in the prone position on the Aftab table. All areas of impingement were well-padded. Patient was then prepped and draped in the normal sterile fashion. Skin incision was then made from L5-S1. subperiosteal dissection was made out to the transverse processes of L5 and S1. Next attention was brought to the [employer] bone marrow aspirate kit was used to aspirate bone marrow aspirate. This was done by using the sharp probe to open up the bone. Aspiration was performed and then the blunt probe was then used to dissect down to through the bone tunnel. An aspirating well drawn back a millimeter approximately 20 cc of bone marrow aspirate was used. Admixed with the allograft and autograft bone that will be used. Was brought to placing the fiducial for the computer navigation. 2 pins were placed in the right iliac crest. The fiducial was attached. The C-arm was then brought in and spun around the patient. Information from serum was then loaded the computer and this information was later used for placing the pedicle screws. The technique for placing the pedicle screws was to use a drill followed by the gearshift probe. Followed by the ball probe to feel the superior inferior medial lateral pacheco of the pedicles. Then placement of the screws. Was done at each pedicle. Screws were placed at L5 bilaterally and S1 bilaterally. Next attention was brought to performing the laminectomy of L5. This was done using the high-speed bur Kerrisons and curettes. Once the lamina was removed and then attention was brought to performing a partial facetectomy on the contralateral side. This was done again using the high-speed bur curettes and Kerrisons. The ligamentum flavum was taken down bilaterally from L5 to S1. Attention was then brought to the facet on the ipsilateral side. The facet was taken down. The S1 nerve was decompressed as it passed around the S1 pedicle. The laminectomy was done for purposes of decompressing the nerve as well as placement of the cage. The L5 nerve was identified as it traversed through the L5 foramen. The thecal sac was identified and retracted. The L5/S1 disc base was identified. Using a knife the disc base was opened. And then sequential nhi were placed. The first shaver was a 6 and the last shaver was a 7. Using a pituitary and down going curette the endplates were scraped and disc material was removed from the space. Once adequate decompression of the disc base was felt to be had. Osteoamp sponge was packed into the anterior aspect of the disc base. Then a size 8 cage from [employer] was placed after packing osteoamp into the cage. While placing the cage the thecal sac and S1 nerve was protected. C arm was used to ensure that the cages placed in the appropriate position. Attention was then brought to attaching the rods to the screws placed in the L5 and S1 bilaterally. Caps were torqued into position. Locking the construct in place. Wound was copiously irrigated and then attention was brought to decorticating the facets and transverse processes laterally. Bone that was taken down from the lamina was used along with osteoamp fibers and sponges were packed into the lateral gutters along the facet joints. This was done bilaterally. Wound was then closed in a layered fashion starting with the thoracolumbar fascia. 0-vicryl was used the sub cutaneous tissue was closed with 2-0 vicryl and skin with 4-0 monocryl. Glue was then used to seal the skin and a steril dressing was applied. Patient was then placed in the supine position. The endotracheal tube was removed and patient was transferred to the PACU in stable condition.
[2023-12-10] MEDS: fentaNYL 50 mcg/mL INJ 2mL IVP ×2 (16:48→17:07)
[2023-12-10] MEDS: pregabalin 100 mg Capsule PO (18:35)
[2023-12-10] MEDS: morphine 4 mg/mL SDV 1 mL 2 MG IVP (19:25)
--- NOTE | 2023-12-10 19:54 | ANE.PACU2 ---
Inpatient post-anesthesia follow up: Airway intact: Yes Vital signs: Temperature 98.8 F Pulse Rate 108 Respiratory Rate 18 Blood Pressure 130/69 Pulse Oximetry 95 Oxygen Delivery Me thod Nasal Cannula Oxygen Flow Rate 3.5 Fraction of Inspir ed Oxygen Hydration adequate: Yes Nausea and vomiting: No Pain level: 2 Mental status: Baseline
[2023-12-10] MEDS: lisinopril 20 mg Tablet 40 MG PO (21:26)
[2023-12-10] MEDS: venlafaxine ER (24HR) 150 mg Capsule 300 MG PO (21:26)
[2023-12-10] MEDS: amitriptyline 25 mg Tablet PO (21:27)
[2023-12-10] MEDS: atorvastatin 40 mg Tablet 20 MG PO (21:27)
[2023-12-10] MEDS: insulin glargine 100 units/1 mL 100 UNIT SUBCUT (21:29)
[2023-12-11 00:34] VITALS: BP 118/70; PULSE 101; RESP 18; TEMP 36.6; O2SAT 90
[2023-12-11] MEDS: morphine 4 mg/mL SDV 1 mL 2 MG IVP (00:51)
[2023-12-11 04:12] VITALS: BP 112/56; PULSE 104; RESP 18; TEMP 36.3; O2SAT 95
[2023-12-11] MEDS: TRAMadol 50 mg Tablet PO (06:13)
[2023-12-11] MEDS: buPROPion XL (24 HR) 300 mg Tablet PO (06:14)
[2023-12-11 07:07] LABS: Glucose Point of Care 334 mg/dL (70-110)
[2023-12-11] MEDS: insulin lispro 100 unit/1 mL SUBCUT (07:30)
[2023-12-11] MEDS: pregabalin 100 mg Capsule PO (07:31)
[2023-12-11] MEDS: montelukast sodium 10 mg Tablet PO (07:31)
[2023-12-11] MEDS: escitalopram 10 mg Tablet 20 MG PO (07:31)
[2023-12-11] MEDS: amlodipine 5 mg Tablet PO (07:31)
[2023-12-11] MEDS: insulin glargine 100 units/1 mL 100 UNIT SUBCUT (07:31)
[2023-12-11] MEDS: pantoprazole DR 40 mg Tablet PO (07:32)
[2023-12-11] MEDS: fluconazole 100 mg Tablet 150 MG PO (07:32)
--- NOTE | 2023-12-11 08:04 | P.DS_ITS ---
Discharge Providers Date of Admission: 12/10/23 16:08 Date of Discharge: December 11, 2023 Attending Provider at Admission: Troy Guardado DO Attending Provider at Discharge: Troy Guardado DO Primary Care Provider: Lacy Rios MD Reason for Visit Reason for Visit: M48.062 Physical Exam Narrative: Sitting up in bed pain controlled. Discharge Data Studies Completed and Pending Pending at discharge Category Date Time Status C-arm Fluoroscopy [id number] Routine Exams 12/10/23 09:49 Ordered Laboratory Results POC Glucose 334 mg/dL (70-110) H 12/11/23 07:04 Blood Type O Negative 12/10/23 18:51 Rho(D) Type Rh negative 12/10/23 18:51 Antibody Screen Negative 12/10/23 18:51 Vitals Last Vital Signs Temp 97.4 F L 12/11/23 04:12 Pulse 104 H 12/11/23 04:12 Resp 18 12/11/23 04:12 BP 112/56 12/11/23 04:12 Pulse Ox 95 12/11/23 04:12 O2 Del Method CPAP 12/11/23 04:12 O2 Flow Rate 21 12/10/23 23:50 Discharge Plan Discharge Patient Disposition: Home Condition: Stable Prescriptions: New hydrocodone-acetaminophen 5-325 mg tablet 1 - 2 tab PO .Q4-6H Qty: 40 0RF Continued omeprazole 40 mg capsule,delayed release(DR/EC) 40 mg PO DAILY Dialyvite Vitamin D3 Max 1,250 mcg (50,000 unit) tablet See Rx Instructions .ROUTE .COMPLEX Rx Instructions: WEEKLY All Day Allergy (cetirizine) 10 mg capsule 10 mg PO BID PRN (Reason: Allergic Symptoms) tramadol 50 mg tablet 50 mg PO Q8H PRN (Reason: Pain) amitriptyline 25 mg tablet 25 mg PO BEDTIME amlodipine 5 mg tablet 5 mg PO DAILY pregabalin [Lyrica] 100 mg capsule 100 mg PO BID lovastatin 20 mg tablet 20 mg PO BEDTIME lisinopril 40 mg tablet 40 mg PO BEDTIME insulin aspart U-100 [Novolog FlexPen U-100 Insulin] 100 unit/mL (3 mL) insulin pen 3 unit SUBCUT TID Rx Instructions: sliding scale 100-150(3 units),151-200(6 units),201-250(9 units),251-300(12 units),301-350(15 units),351-400(18 units) jeekxufjhp-nugvtehcfwpjv-tdgc 50-325-40 mg capsule 1 cap PO Q4H PRN (Reason: prn) montelukast [Singulair] 10 mg tablet 10 mg PO DAILY fluconazole 150 mg tablet 150 mg PO DAILY Qty: 1 0RF aspirin [Adult Low Dose Aspirin] 81 mg tablet,delayed release (DR/EC) 81 mg PO DAILY Estring 2 mg (7.5 mcg /24 hour) ring 1 vag ring vaginal Q90D Qty: 1 3RF Byetta 5 mcg/dose (250 mcg/mL) 1.2 mL pen injector 5 mcg SUBCUT BID bupropion HCl [Wellbutrin XL] 300 mg tablet extended release 24 hr 300 mg PO QAM Qty: 30 2RF escitalopram oxalate [Lexapro] 20 mg tablet 20 mg PO DAILY Qty: 30 2RF hydroxyzine HCl 50 mg tablet 50 mg PO QID PRN (Reason: insomnia) Qty: 120 2RF Effexor XR 150 mg capsule,extended release 24hr 300 mg PO BEDTIME Lantus Solostar U-100 Insulin 100 unit/mL (3 mL) insulin pen 100 unit SUBCUT BID Discharge Orders: Discharge Order (Routine); Ordered 12/11/23 Ordered By: Troy Guadrado Discharge Diet: Advance as tolerated Discharge Activity: Limit activity as instructed Patient Instructions: Opioid Safety Activity Restrictions/Additional Instructions: Thank you for [facility] for your care! The following is a list of instructions, from your provider, to follow upon your discharge to ensure you have the optimal recovery from your recent injury orsurgery. Follow-up care is a allan part of your treatment and safety. Be sure to make and go to all appointments, and call your doctor if you are having problems. If you do not already have a follow-up appointment made, call Dr. Guardado office in the next 1-3 days to make follow up appointment for 1 weeks at [phone]. It is also a good idea to know your test results and keep a list of the medicines you take. Medications will be prescribed for you at your provider's discretion. These medications are to be used as instructed; if they are taken more often that prescribed they will not be refilled early and in most cases will not be refilled at all. > When a refill is needed,you should contact garth bronson 2-3 business days before your prescription runs out. Medications will NOT be refilled by automotive service consultant providers after hours! > Many pain medications contain Tylenol (Acetaminophen). Do not consume more than 4,000 mg of Tylenol per day in total with any combination ofmedications. > Pain medications can cause constipation. Please use an over the counter stool softener as directed, while taking pain medications. Consulty our local pharmacist with questions or recommendations on stool softeners. If constipation persists, contact our office or your primary care provider. > While under our care,you are not to receive pain medications or other controlled substances from any other provider unless our office is notified and approves. Any attempts to do so will result in refusal to prescribe any further pain medications and possible dismissal from our practice. ? Your wound and/or dressing should remain clean and dry for 7 days after surgery. On postoperative day 7 in clinic. Pad dry afterwards. No further dressing should be required from that point on. Do not put any creams or ointments on theincision > It is normal for there to be a small amount of discharge (bloody or blood tinged) present from a surgical wound for the first 1-3days. > The wound should be examined twice a day for signs of infection. Mild redness or bruising is to be expected but indications that an infection maybe starting would include; An increase in redness, swelling, or discharge, a foul odor present around the incision, and/or a fever greater than 101 ?F ? Showering is permitted, however we ask that you do not take a bath, sit in a whirlpool / Jacuzzi, or go swimming for 1 month. For only the first 2 days after surgery, lt wilt be necessary for you to cover your wound/dressing with plastic and tape to keep it dry. ? Walking is essential for the healing process after surgery. We would like you to slowly advance your walking. This should be done on relatively flat clear ground (inside or out) or can be done on a treadmill. Remember this goal does not have to happen all at once, slowly increase your distance and duration. This can be broken into more more than one walk per day as tolerated. Patients who walk as directed after surgery rarely require Physical Therapy. In the unlikely event this issue arises your provider will direct hospital staff to make the appropriate arrangements. ? No lifting over 5 pounds {a gallon of milk) or bending/twisting until further notice. Each of these activities places an unnecessary amount of stress onto the body and can impede the delicate healing process. > Instead of bending at the waist, keep your back straight and bend at the knees. > Instead of twisting your torso, keep your back straight and turn your entire body with your feet. ? You may sleep in any position which makes you comfortable. Many patients find comfort sleeping in a reclining chair. It is not abnormal to have difficulty sleeping for the first several weeks following your surgery. We recommend trying Benadry! or Tylenol PM as directed to help with your sleeping difficulties. Both medications are over the counter and available withoutprescription. ? NO SMOKING!!! Smoking dramatically increases the probability of developing postoperative wound infections. ? Common complaints after lumbar and/or thoracic spine surgery include, but are not limited to: numbness and/or tingling in the legs, pain around the incision and surrounding tissues, muscle spasms, or stiffness of the middle to low back. Contact our office if these symptoms persist or if an acute change occurs. ? No driving for the first 3-5days, and not while taking narcotics until seen at your follow-up appointment and cleared. There are no restrictions for riding on short trips, however if you take a longer trip, arrangements should be made to make regular stops to get out of the vehicle and stretch . ? Swelling is an unfortunate event that will take place with any surgery and is the primary source of your postoperative discomfort. While walking and regular approved activities helps control inflammation, there are additional steps you can take to minimizeswelling. > Place ice over the surgical site and surrounding tissue for twenty minutes, followed by applying a low/medium heat (heating pad) for an additional twenty minutes every 1-2 hours as needed for painrelief. > You may use of over the counter anti-inflammatory medications (Ib uprofen, Motrin, Aleve, Advil, etc) as directed on the package label. These types of medicines wm significantly reduce the amount of discomfort you experience after surgery from swelling. It should be noted that if you have and allergy to any of these medications, or a history of ulcers or kidney disease you should consult you primary care provider prior to starting these medications. Discharge Attestations Time Spent in Discharge Care*: less than 30 min Quality Metrics Clinical Quality Measures [ No reported AMI, CVA or VTE this stay] Coding Level of Care Code Acute Code for Chg Gricelda
[2023-12-11 08:31] VITALS: BP 135/67; PULSE 105; RESP 18; TEMP 36.9; O2SAT 94
--- NOTE | 2023-12-11 08:40 | PC.NURSE ---
Hemovac discontinued per Dr. Guardado. Drain intact. Area covered with 2x2. Pt. tolerated well.
--- NOTE | 2023-12-11 10:00 | PC.CHAP ---
Pastoral Care Encounter/Spiritual Assessment Type of Contact [] Declined retail analytics manager visit [] Patient/Family/Request visit [] Outpatient visit [] Follow-up visit [] Physician referral [] Code/Alert [x] Routine visit [] Staff referral [] Actively dying [] Patient sleeping [] Family support [] [] Out of room [] Palliative care [] [] Receiving care in room [] Pre-surgical visit [] Trauma [] Long length of stay [] ICU visit [] Other: Relational/Emotional Strength [x] Patient feels connected with others/family/visitors/staff [] Distress [] Loneliness/isolation [] Abandonment Spirituality of Patient [x] Person of Vikki [] Attends Zoroastrianism of their Vikki [x] Believes in Prayer [] Reads Bible or Alevism materials [] There are Spiritual issues to be addressed Supply Cataloguer Interventions [x] Prayer [x] Active listening [] Non-anxious presence [x] Spiritual/emotional support [] Crisis/trauma care [] Spiritual counseling [] Bereavement support [] Provided bereavement packet [] Provided Bible/devotional materials [] Provided toy/stuffed animal, coloring book to patient or family member [] Provided Communion [] Anointing/[place] [] Salvation [x] Completed spiritual assessment [] Other: Impact on Illness or Injury [] Angry [] Fearful [] Anxious [] Often cries [] Exhaustion [] Unable to work [] Unable to attend mu-ism [] Unable to walk/stand [] Unable to read [] Unable to drive [] Unable to eat/drink [] Unable to sleep [] Unable to be with family [] Patient intubated [] Other: Summary Time spent with patient 5 min
--- NOTE | 2023-12-11 10:31 | PC.NURSE ---
Discharge instructions provided to pt. No questions or concerns at this time. at bedside.
[2023-12-11 10:32] VITALS: BP 135/67; PULSE 105; RESP 18; TEMP 36.9; O2SAT 94
[2023-12-13 06:46] LABS: Glucose Point of Care 284 mg/dL (70-110)
== END 2023-12-11 10:49 | disposition home or self-care (01) ==
LOC: MEDSURG 16:24
PROVIDERS: Admitting Provider Orthopaedic Surgery; PCP Internal Medicine; Visit Provider Orthopaedic Surgery
PROC: (CPT 22612; principal; 2023-12-10 11:00)
DX: M48.062 Spinal stenosis, lumbar region with neurogenic claudication (principal); G47.30 Sleep apnea, unspecified; I10 Essential (primary) hypertension; E11.9 Type 2 diabetes mellitus without complications; E78.5 Hyperlipidemia, unspecified; E66.01 Morbid (severe) obesity due to excess calories; Z68.41 Body mass index [BMI] 40.0-44.9, adult; Z79.4 Long term (current) use of insulin; M79.7 Fibromyalgia; Z87.891 Personal history of nicotine dependence
CPT/HCPCS: 20930; 20936; 20939; 22633; 22842; 22853; 61783; 63052; 36415; 36416; 72100; 76000; 82962; 86850; 86900; 96372; 97161; C1713; G0378; J0690; J1170; J1644; J1815; J2250; J2270; J2405; J2704; J2710; J3010; J3370; J3490; J7030

== ENCOUNTER → 2024-01-22 12:54 | Outpatient (BNVA) | payer OTHER, MEDICAID, SELFPAY ==
[2023-07-13 16:32] VITALS: BP 137/74; BMI 41.5
== END ==
PROVIDERS: PCP Internal Medicine; Visit Provider Orthopaedic Surgery
DX: Z98.1 Arthrodesis status (principal)
CPT/HCPCS: 72100

== ENCOUNTER → 2024-03-06 11:25 | Outpatient (BNVA) | payer OTHER, SELFPAY ==
[2023-07-13 16:32] VITALS: BP 137/74; BMI 41.5
== END ==
PROVIDERS: PCP Internal Medicine; Visit Provider Orthopaedic Surgery
DX: Z98.1 Arthrodesis status (principal)
CPT/HCPCS: 72100

== ENCOUNTER → 2024-05-20 08:56 | Outpatient (BNVA) | payer OTHER, SELFPAY ==
[2023-07-13 16:32] VITALS: BP 137/74; BMI 41.5
== END ==
PROVIDERS: PCP Internal Medicine; Visit Provider Orthopaedic Surgery
DX: Z98.1 Arthrodesis status (principal); G95.29 Other cord compression
CPT/HCPCS: 72100

== ENCOUNTER 2024-07-05 11:19 | Emergency (ER) | payer OTHER, SELFPAY ==
[2024-05-20 09:42] VITALS: BP 137/74; BMI 41.5
[2024-07-05 11:41] VITALS: BP 137/73; PULSE 93; RESP 20; TEMP 37.4; O2SAT 96; BMI 36.4
--- NOTE | 2024-07-05 11:54 | ECG_ITS ---
[facility] Test Date: 2024-07-05 Pat Name: Una Cruz Department: Room: Gender: Female Regulatory Compliance Specialist: : 1965 Requested By: Isacc Peterson Order Number: [id number] Jerri MD: Adrián Marie M.D. Measurements Intervals [place] Rate: 92 P: 30 MI: 120 QRS: 0 QRSD: 111 T: 52 QT: 364 QTc: 451 Interpretive Statements SINUS RHYTHM MODERATE INTRAVENTRICULAR CONDUCTION DELAY [110+ ms QRS DURATION] Compared to ECG 11/20/2015 13:51:33 Intraventricular conduction delay now present Electronically Signed On 07-07-2024 18:51:40 CDT by Adrián Marie M.D. [email or web address]
--- NOTE | 2024-07-05 11:54 | XRR_ITS ---
PROCEDURE INFORMATION: Exam: XR Left Ribs with PA Chest Exam date and time: 07/05/2024 12:12 PM Age: 59 years old Clinical indication: Painful respiration; Patient HX: Lt mediastinal/ant rib pain post fall; [facility] complaining of pain under lt breast and near left side of sternum; HX lt lower broken ribs x several years ago; Additional info: Fall left rib pain TECHNIQUE: Imaging protocol: Radiologic exam of the left ribs with PA chest. Views: 3 views COMPARISON: CT abdomen pelvis wo/w [id number] 05/09/2021 12:47 PM FINDINGS: Lungs: Unremarkable. No consolidation. Pleural spaces: Unremarkable. No pleural effusion. No pneumothorax. Heart/Mediastinum: Unremarkable. No cardiomegaly. Bones/joints: Hardware fusion of the visualized lower lumbar spine. Vague lucency is overlapping left lower ribs in oblique radiograph (series 1006 image 1006) is felt to be overlapping bowel shadow. XR/XR ribs LT mn 3V w CXR1V [id number] IMPRESSION: No acute findings. Evaluation of the left lower ribs minimally limited. Follow-up with CT scan as clinically indicated.
--- NOTE | 2024-07-05 12:44 | W.ED.FALL ---
HPI - Fall General: Chief Complaint: Fall Stated Complaint: pain on left side Time Seen by Provider: 07/05/24 11:54 History of Present Illness: Patient presents to the ER with complaints of a fall and left rib/chest wall pain. Patient says she is at walking her dog when her dog took off running for a cat and patient lost her balance and fell down on the ground. Patient was not hurting before the fall. Patient denies loss consciousness, increased pain when twisting turning or taking a big deep breath. Related Data Home Medications Medication Instructions Recorded Confirmed amitriptyline 25 mg tablet 25 mg PO BEDTIME 02/15/21 07/03/24 amlodipine 5 mg tablet 5 mg PO DAILY 02/15/21 07/03/24 cetirizine 10 mg capsule (All Day 10 mg PO BID PRN Allergic Symptoms 02/15/21 07/03/24 Allergy (cetirizine)) cholecalciferol (vitamin D3) 1,250 See Rx Instructions .Route .COMPLEX 02/15/21 07/03/24 mcg (50,000 unit) tablet (Dialyvite Vitamin D3 Max) lisinopril 40 mg tablet 40 mg PO BEDTIME 02/15/21 07/03/24 lovastatin 20 mg tablet 20 mg PO BEDTIME 02/15/21 07/03/24 omeprazole 40 mg capsule,delayed 40 mg PO DAILY 02/15/21 07/03/24 release pregabalin 100 mg capsule (Lyrica) 100 mg PO BID 02/15/21 07/03/24 aspirin 81 mg tablet,delayed 81 mg PO DAILY 10/02/23 07/03/24 release (Adult Low Dose Aspirin) insulin aspart U-100 100 unit/mL 3 unit SUBCUT TID 11/02/23 07/03/24 (3 mL) subcutaneous pen (Novolog FlexPen U-100 Insulin aspart) zlkiygbrai-bptbtrdwurifz-vrhinuhg 1 cap PO Q4H PRN prn 12/04/23 07/03/24 50 mg-325 mg-40 mg capsule montelukast 10 mg tablet 10 mg PO DAILY 12/04/23 07/03/24 (Singulair) ibuprofen 800 mg tablet 800 mg PO .Q 4 - 6 hours PRN 01/17/24 07/03/24 fenofibrate nanocrystallized 48 mg mg PO 06/02/24 07/03/24 tablet Previous Rx's Medication Instructions Recorded insulin glargine 100 unit/mL (3 See Rx Instructions .Route 06/02/24 mL) subcutaneous pen (Lantus .COMPLEX #225 mL Solostar U-100 Insulin) hydroxyzine HCl 50 mg tablet 50 mg PO QID PRN insomnia #120 tabs 06/17/24 bupropion HCl 300 mg 24 hr tablet, 300 mg PO QAM #30 tabs 06/19/24 extended release (Wellbutrin XL) escitalopram oxalate 20 mg tablet 20 mg PO DAILY #30 tabs 06/19/24 (Lexapro) venlafaxine 150 mg 300 mg (2 x 150 mg) PO BEDTIME #60 06/19/24 capsule,extended release 24 hr caps (Effexor XR) Allergies Allergy/AdvReac Type Severity Reaction Status Date / Time latex Allergy Severe anaphlactic Verified 07/05/24 11:52 Pecans Allergy Severe Anaphylaxis Uncoded 07/05/24 11:52 tape Allergy rash Uncoded 07/05/24 11:52 Review of Systems General: Reports: 10 or more systems reviewed and unremarkable except in HPI and below PFSH ED PFSH: Medical History Psychiatric care Dyslipidemia History of obstructive sleep apnea History of depression History of anxiety Hypertension Fibromyalgia Diabetes mellitus Surgical History History of endometrial ablation History of cholecystectomy History of colonoscopy with polypectomy 2016 2021 - diverticuli History of 2 sections Family History Sister Ovarian cancer Diabetes Mother Heart disease Hypertension Thyroid disease Father Heart disease Hyperlipidemia Hypertension Diabetes Grandmother Heart disease Hyperlipidemia Hypertension Breast cancer Stroke Grandfather Heart disease Hyperlipidemia Hypertension Other Cancer Denies family history of Colon cancer Uterine cancer Social History Smoking and tobacco/nicotine status: former use of tobacco/nicotine Quit status (tobacco/nicotine): has quit using Year quit tobacco: 1990 Second hand smoke exposure: No Alcohol intake: former Year of sobriety/quit date alcohol: 1989 Substance/Drug Use: former Household members: spouse and children Marital status: Current occupational status: unemployed Physical Exam Const: COMMON NORMALS: no acute distress, average body habitus, patient oriented x3, no limitations, healthy appearing, alert and well nourished HENMT: COMMON NORMALS: normocephalic, atraumatic, hearing grossly normal bilaterally, external ears normal, Normal external nose present and moist oral mucous membranes HEAD & SCALP: normocephalic and atraumatic NOSE: Normal external nose present EXTERNAL EAR: Yes external ears normal Neck/C-Spine: COMMON NORMALS: full ROM, no lymphadenopathy, supple, no meningeal signs, no JVD and Thyroid normal THYROID: Thyroid normal Chest: COMMONS NORMALS: normal inspection of the chest and normal palpation of entire chest wall Resp: COMMON NORMALS: normal respiratory effort, No retractions, No use of accessory muscles and clear to auscultation bilaterally AUSCULTATION: clear to auscultation bilaterally Cardio: COMMON NORMALS: no JVD, regular rate, regular rhythm, S1 normal heart sound present, S2 normal heart sound present, No gallops present (Cardio), No clicks present (Cardio), No murmurs present (Cardio) and No rub (Cardio) RATE: regular rate RHYTHM: regular rhythm HEART SOUNDS: S1 normal heart sound present and S2 normal heart sound present GI: COMMON NORMALS: Normal to inspection, nondistended, normoactive bowel sounds present, Soft to palpation, non-tender, No hepatosplenomegaly present and no masses PALPATION: Yes Soft to palpation and Yes No hepatosplenomegaly present Neuro: COMMON NORMALS: patient oriented x3 SENSORIUM/ORIENTATION: Yes alert MENINGEAL SIGNS: Yes no meningeal signs Course Vital Signs: Vital signs: Vital Signs Temperature 99.4 F 07/05/24 11:41 Pulse Rate 93 07/05/24 11:41 Respiratory Rate 20 H 07/05/24 11:41 Blood Pressure 137/73 07/05/24 11:41 Pulse Oximetry 96 07/05/24 11:41 Oxygen Delivery Me thod Room Air 07/05/24 11:41 MDM - Fall Medical Decision Making Patient x-ray of ribs and chest as well as EKG, both of which were negative, these results was discussed with the patient. Patient be discharged home. Medical Records I reviewed the patient's medical records. Lab Data I reviewed the patient's lab results. Radiology Impressions Ribs X-Ray 07/05/24 11:54 IMPRESSION: No acute findings. Evaluation of the left lower ribs minimally limited. Follow-up with CT scan as clinically indicated. All radiology interpretation(s) finalized by discharge Discharge Plan Discharge Patient Disposition: Home Clinical Impression: Fall, Acute chest wall pain Condition: Stable Prescriptions: No Action omeprazole 40 mg capsule,delayed release(DR/EC) 40 mg PO DAILY Dialyvite Vitamin D3 Max 1,250 mcg (50,000 unit) tablet See Rx Instructions .ROUTE .COMPLEX Rx Instructions: WEEKLY All Day Allergy (cetirizine) 10 mg capsule 10 mg PO BID PRN (Reason: Allergic Symptoms) amitriptyline 25 mg tablet 25 mg PO BEDTIME amlodipine 5 mg tablet 5 mg PO DAILY pregabalin [Lyrica] 100 mg capsule 100 mg PO BID lovastatin 20 mg tablet 20 mg PO BEDTIME lisinopril 40 mg tablet 40 mg PO BEDTIME insulin aspart U-100 [Novolog FlexPen U-100 Insulin] 100 unit/mL (3 mL) insulin pen 3 unit SUBCUT TID Rx Instructions: sliding scale 100-150(3 units),151-200(6 units),201-250(9 units),251-300(12 units),301-350(15 units),351-400(18 units) uvkouwhzpc-anmsuakpqvcky-wqco 50-325-40 mg capsule 1 cap PO Q4H PRN (Reason: prn) montelukast [Singulair] 10 mg tablet 10 mg PO DAILY fenofibrate nanocrystallized 48 mg tablet PO aspirin [Adult Low Dose Aspirin] 81 mg tablet,delayed release (DR/EC) 81 mg PO DAILY ibuprofen 800 mg tablet 800 mg PO .Q 4 - 6 hours PRN bupropion HCl [Wellbutrin XL] 300 mg tablet extended release 24 hr 300 mg PO QAM Qty: 30 4RF escitalopram oxalate [Lexapro] 20 mg tablet 20 mg PO DAILY Qty: 30 4RF venlafaxine [Effexor XR] 150 mg capsule,extended release 24hr 300 mg PO BEDTIME Qty: 60 4RF insulin glargine [Lantus Solostar U-100 Insulin] 100 unit/mL (3 mL) insulin pen See Rx Instructions .ROUTE .COMPLEX Qty: 225 0RF Dose Instruction: INJECT 125 UNITS SUBCUTANEOUSLY TWICE DAILY Rx Instructions: INJECT 125 UNITS SUBCUTANEOUSLY TWICE DAILY hydroxyzine HCl 50 mg tablet 50 mg PO QID PRN (Reason: insomnia) Qty: 120 2RF Discharge Orders: Discharge ED (Routine); Ordered 07/05/24 Ordered By: Isacc Peterson Referrals: Lacy Rios MD [Primary Care Provider] - 1 week Patient Instructions: Chest Pain - Chest Wall Activity Restrictions/Additional Instructions: Your x-rays was read by the radiologist as negative for acute fracture. Sometimes fractures are missed in the rib area. Please continue take bgux-yrw-[id number] Tylenol and or Motrin as needed for pain. Please follow-up with your family practice physician within 7 to 10 days for further evaluation and treatment. Coding Level of Care Code ED Experimental Flight Test Mechanic for Viraj Madison
[2024-07-05 14:01] VITALS: BP 133/66; PULSE 95; O2SAT 98
== END 2024-07-05 14:01 | disposition home or self-care (01) ==
PROVIDERS: Emergency Provider Emergency Medicine; PCP Internal Medicine
DX: R07.89 Other chest pain (principal); Z79.82 Long term (current) use of aspirin; Z79.4 Long term (current) use of insulin; Z87.891 Personal history of nicotine dependence; E78.5 Hyperlipidemia, unspecified; I10 Essential (primary) hypertension; E11.9 Type 2 diabetes mellitus without complications
CPT/HCPCS: 71101; 93005; 99284

== ENCOUNTER 2024-07-07 11:57 | Outpatient (CLI) | payer OTHER, SELFPAY ==
[2024-05-20 09:42] VITALS: BP 137/74; BMI 41.5
--- NOTE | 2024-07-07 12:45 | USCV_ITS ---
Una Cruz Age: 59 Gender: F : 1965 Exam Date: 07/07/2024 12:43 Ordering Phys: Jerrod Ruiz MD Technologist: CT Exam Location: [facility] [place]_ Indication: Risk Factors: Previous Vascular Surgery: Right Brachial BP: / Left Brachial BP: / Right Left Velocity (cm/s) Spectral Plaque Velocity (cm/s) Spectral Plaque Syst/Diast Broadening Syst/Diast Broadening 93.40/ 17.20 Prox CCA 90.20 / 14.10 89.10/ 19.40 Mid CCA 83.90 / 17.30 93.40/ 21.60 Distal CCA 83.90 / 15.70 60.90/ 11.80 Prox ICA 55.00 / 13.70 63.00/ 16.00 Mid ICA 49.50 / 12.30 71.90/ 19.10 Distal ICA 50.20 / 14.60 104.10 ECA 97.90 0.80 ICA/CCA 0.70 Antegrade Vertebral Antegrade 39.90/ 7.80 cm/s 34.40/ 8.10 cm/s Tri Subclavian Tri 86.30 110.8 0 FINDINGS Comparison: none available. No significant elevation of systolic or diastolic velocities. Waveforms are normal. Mild scattered plaque at the bifurcations. Antegrade vertebral arteries. CONCLUSIONS Bilateral ICA stenosis less than 50%. Dr. Melodie Miranda DO (Electronically Signed) Final Date: 07 July 2024 13:34 S
== END 2024-07-07 11:58 | disposition home or self-care (01) ==
LOC: RAD 11:57
PROVIDERS: PCP Internal Medicine; Visit Provider Psychiatry & Neurology Neurology
DX: R26.89 Other abnormalities of gait and mobility (principal)
CPT/HCPCS: 93880

== ENCOUNTER 2024-07-15 10:57 | Outpatient (CLI) | payer OTHER, SELFPAY ==
[2024-05-20 09:42] VITALS: BP 137/74; BMI 41.5
--- NOTE | 2024-07-15 11:45 | MR_ITS ---
WS: [id number] MRI CERVICAL SPINE with and without contrast HISTORY: G62.9 - Polyneuropathy, unspecified COMPARISON: None available. Technique: Multiplanar, multisequence noncontrast imaging of the cervical spine. Postcontrast imaging MultiHance 20 mL. Slight reversal of the normal cervical lordosis. Reversal centered at C5-6. Signal within the cervical cord is normal. Visualized posterior fossa is unremarkable. Craniocervical junction, C1 and C2 relationship, odontoid process and soft tissues are normal. C2-C3: Normal. C3-C4: Normal. C4-C5: Mild RIGHT foraminal narrowing and a small osteophyte and facet disease. C5-C6: Mild annular disc bulging. Mild facet arthritis. C6-C7: Mild osteophytic ridging and annular disc bulging. Mild effacement of ventral CSF with minimal foraminal narrowing. C7-T1: No stenosis. Small RIGHT foraminal nerve root sleeve diverticulum. No discitis or osteomyelitis. No facet joint enhancement. MR/MR cervical spine wo/w [id number] IMPRESSION: 1. No high-grade central or foraminal stenosis. 2. Mild RIGHT foraminal narrowing at C4-5 due to an osteophyte. 3. Mild disc bulging at C6-7 with osteophytosis and central disc protrusion. T here is mild encroachment upon the ventral thecal sac and foraminal narrowing. 4. No discitis or osteomyelitis.
[2024-07-15] MEDS: gadobenate dimeglumine 20 mL vial IV (12:12)
== END 2024-07-15 10:58 | disposition home or self-care (01) ==
LOC: RAD 10:57
PROVIDERS: PCP Internal Medicine; Visit Provider Psychiatry & Neurology Neurology
DX: G62.9 Polyneuropathy, unspecified (principal); M54.2 Cervicalgia; M50.323 Other cervical disc degeneration at C6-C7 level
CPT/HCPCS: 72156

== ENCOUNTER → 2024-07-21 15:38 | Outpatient (BNVA) | payer OTHER, SELFPAY ==
[2024-05-20 09:42] VITALS: BP 137/74; BMI 41.5
== END ==
PROVIDERS: PCP Internal Medicine; Visit Provider Nurse Practitioner
DX: Z01.818 Encounter for other preprocedural examination (principal); G56.02 Carpal tunnel syndrome, left upper limb
CPT/HCPCS: 36415; 80053; 83036; 85025

== ENCOUNTER 2024-08-12 11:39 | Outpatient (RCR) | payer OTHER, SELFPAY ==
[2024-05-20 09:42] VITALS: BP 137/74; BMI 41.5
== END 2024-09-06 23:59 | disposition home or self-care (01) ==
LOC: SPT 11:39
PROVIDERS: PCP Internal Medicine; Visit Provider Internal Medicine
DX: R42 Dizziness and giddiness (principal); H81.11 Benign paroxysmal vertigo, right ear
CPT/HCPCS: 95992; 97161

== ENCOUNTER → 2024-10-16 14:37 | Outpatient (BNVA) | payer SELFPAY ==
[2024-05-20 09:42] VITALS: BP 137/74; BMI 41.5
== END ==
PROVIDERS: PCP Internal Medicine; Visit Provider Emergency Medicine
DX: M19.042 Primary osteoarthritis, left hand (principal)
CPT/HCPCS: 73130

== ENCOUNTER 2025-03-10 11:18 | Outpatient (CLI) | payer OTHER, SELFPAY ==
[2024-05-20 09:42] VITALS: BP 137/74; BMI 41.5
--- NOTE | 2025-03-10 11:29 | MM_ITS ---
WS: [id number] BILATERAL 3D TOMOSYNTHESIS DIGITAL SCREENING MAMMOGRAPHY WITH CAD CLINICAL INFORMATION: BILATERAL SCREENING HISTORY: Screening mammogram. No current complaints. COMPARISON: 2022 TECHNIQUE: Bilateral CC and MLO views. FINDINGS: Scattered fibroglandular densities bilaterally. No suspicious focal mass, asymmetry, calcifications, or architectural distortion. No evidence of malignancy. Incidental punctate and secretory calcifications. MM/MM scr tomosynthesis [id number] IMPRESSION: DENSITY: There are scattered areas of fibroglandular density. BI-RADS: 2 - Benign. FOLLOW UP: 1 Year Follow-up Recommend return to annual screening mammography.
== END 2025-03-10 11:19 | disposition home or self-care (01) ==
PROVIDERS: PCP Internal Medicine; Visit Provider Internal Medicine
DX: Z12.31 Encounter for screening mammogram for malignant neoplasm of breast (principal); R92.323 Mammographic fibroglandular density, bilateral breasts; R92.1 Mammographic calcification found on diagnostic imaging of breast
CPT/HCPCS: 77063; 77067

== ENCOUNTER 2025-04-15 07:49 | Outpatient (CLI) | payer OTHER, SELFPAY ==
[2024-05-20 09:42] VITALS: BP 137/74; BMI 41.5
--- NOTE | 2025-04-15 07:56 | USR_ITS ---
PROCEDURE INFORMATION: Exam: US Abdomen Complete Exam date and time: 04/15/2025 8:07 AM Age: 59 years old Clinical indication: Abdominal pain; Localized; Left upper quadrant (luq); Additional info: Left upper quadrant abdominal pain TECHNIQUE: Imaging protocol: Real-time ultrasound of the abdomen with image documentation. Complete exam. COMPARISON: CT abdomen pelvis wo/w [id number] 05/09/2021 12:47 PM FINDINGS: Liver: The liver is enlarged in size at 21.2 cm in the midclavicular line. Hepatic contour is normal. Hepatic echogenicity is increased There are no hepatic mass lesions seen. Main portal vein: Normal in caliber at 9 mm Hepatopetal portal venous blood flow is demonstrated on color flow imaging. Gallbladder: The gallbladder is surgically absent. Biliary ducts: 5 mm, normal for age. Pancreas: The head and body of the pancreas appear normal. The tail is obscured by bowel gas. Right kidney: Right kidney measures 103 x 60 x 59 mm. Mass lesion, hydronephrosis, or nephrolithiasis is present. Renal cortical thickness and echogenicity are normal. No renal scarring is evident. Left kidney: The left kidney measures 136 x 72 x 62 mm. No mass lesion, hydronephrosis, or nephrolithiasis is present. Cortical thickness and echogenicity are normal. Spleen: Splenic volumes are increased at 614,3 cc. No focal splenic lesion is evident. Aorta: Not visualized. Inferior vena cava: Unremarkable. Other findings: Ascities: None.. No focal tenderness or mass seen. US/US abdomen complete* [id number] IMPRESSION: 1. Hepatomegaly with hepatic steatosis. 2. Splenomegaly. 3. Suboptimal visualization of the pancreatic tail.
== END 2025-04-15 07:50 | disposition home or self-care (01) ==
LOC: RAD 07:49
PROVIDERS: PCP Internal Medicine; Visit Provider Nurse Practitioner Family
DX: R10.12 Left upper quadrant pain (principal); K86.89 Other specified diseases of pancreas; R16.2 Hepatomegaly with splenomegaly, not elsewhere classified; Z90.49 Acquired absence of other specified parts of digestive tract; N13.2 Hydronephrosis with renal and ureteral calculous obstruction
CPT/HCPCS: 76700

== ENCOUNTER → 2025-06-23 12:01 | Outpatient (BNVA) | payer OTHER, SELFPAY ==
[2024-05-20 09:42] VITALS: BP 137/74; BMI 41.5
== END ==
PROVIDERS: PCP Internal Medicine; Referring Provider Internal Medicine; Visit Provider Internal Medicine Rheumatology
DX: M25.50 Pain in unspecified joint (principal)
CPT/HCPCS: 36415; 80076; 82306; 82565; 85025; 85651; 86140; 86480; 86704; 86803; 87340

== ENCOUNTER 2025-08-12 11:32 | Outpatient (CLI) | payer OTHER, SELFPAY ==
[2024-05-20 09:42] VITALS: BP 137/74; BMI 41.5
== END 2025-08-12 11:33 | disposition home or self-care (01) ==
LOC: LAB 11:33
PROVIDERS: PCP Internal Medicine; Visit Provider Internal Medicine Rheumatology
DX: Z79.899 Other long term (current) drug therapy (principal)
CPT/HCPCS: 36415; 80076; 82565; 85025; 85651; 86140

== ENCOUNTER 2025-08-28 08:49 | Emergency (ER) | payer OTHER, SELFPAY ==
--- OUTSIDE RECORDS SUMMARY | 2024-05-13 11:00 | XMS_ITS ---
Author Organization [facility] Address [address] [place] [address] Care Team Providers Care Associate Application Developer Name Role Phone Lacy Rios Primary Care Provider FARTUN Magallanes [phone] REASON FOR VISIT 3 mo fu w/ua/CT results Encounters Encounter Location Date Provider Diagnosis [facility] [address] [place] [address] 05/13/2024 FARTUN RITCHIE Plan Of Treatment No Information Progress Notes * Janie CRUZaDOB:1965 (60 yo F)Acc No.[id number]:05/13/2024 Progress Notes Patient: Una LINDQUIST Provider: Lucy Ritchie APRN :1965 A ge:58 Y S ex:Female Date:05/13/2024 Address:[address] [place] [id number] Pcp:Lacy Rios Subjective: * Chief Complaints: * 1 . 3 mo fu w/ua/CT results. * Medical History: Objective: * Vitals: Assessment: Plan: * Treatment: * Billing Information: * Visit Code: * Procedure Codes: * Electronic signature of TANESHA RITCHIE APRN on 08/28/2025 at 08:50 AM OFFICE MANAGER Sign off status: Pending * Provider: Lucy Ritchie APRN Date: 0 05/13/2024 Generated for Sulema martini/Faxing/eTransmitting on: 10/28/2024 08:50 AM OFFICE MANAGER
[2024-05-20 09:42] VITALS: BP 137/74; BMI 41.5
[2025-08-28 08:49] VITALS: BP 123/74; PULSE 93; RESP 16; TEMP 36.8; O2SAT 94; BMI 36.9
--- OUTSIDE RECORDS SUMMARY | 2025-08-28 08:51 | XMS_ITS | Encounter Summary ---
Author Organization [facility] Address [address] [place] [address] Care Team Providers Care Airplane Pilot Chief Name Role Phone Shira Platt DO Primary Care Provider Encounter Details Date Type Department Care Team (Latest Contact Info) Description 09/08/2002 Outpatient Historical [facility] SunScott MD [address] [facility] [address] [place] [address] JAUNDICE NOS (Primary Dx); SURGERY FOLLOWUP, UNSPEC Social History Tobacco Use Types Packs/Day Years Used Date Smoking Tobacco: Never Assessed Comments Unknown Sex and Gender Information Value Date Recorded Sex Assigned at Not on file Legal 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
--- OUTSIDE RECORDS SUMMARY | 2025-08-28 08:51 | XMS_ITS | Encounter Summary ---
Author Organization [facility] Address [address] [place] [address] Care Team Providers Care Valve Inserter Name Role Phone Shira Platt DO Primary Care Provider Encounter Details Date Type Department Care Team (Latest Contact Info) Description 04/25/2006 Outpatient [facility] [address] [place] [address] Jay Mccall II, MD [address] [place] [address] Benign Essential Hypertension Antepartum (Primary Dx); Antepartum Diabetes Mellitus; Elderly Multigravida with Antepartum Condition or Complication Social History Tobacco Use Types Packs/Day Years Used Date Smoking Tobacco: Never Assessed Comments Unknown Sex and Gender Information Value Date Recorded Sex Assigned at Not on file 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
--- OUTSIDE RECORDS SUMMARY | 2025-08-28 08:51 | XMS_ITS | Encounter Summary ---
Author Organization [facility] Address [address] [place] [address] Care Team Providers Care Drilling Engineering Manager Name Role Phone Giulia Shira Adenike CORTES Primary Care Provider [phone] Encounter Details Date Type Department Care Team (Late st Contact Info) Description 11/23/2006 Inpatient Historical HIS IN BED Alvin Bosch MD NO ADDRESS ON FILE Prev D-Xgnffmyj-Yhwgayj (Primary Dx) Social History Tobacco Use Types Packs/Day Years Used Date Smoking Tobacco: Never Assessed Comments Unknown Sex and Gender Information Value Date Recorded Sex Assigned at Not on file Legal Sex Female 6:13 AM PAINT PREP TECHNICIAN Gender Identity Not on file Sexual Orientation Not on file documented as of this encounter Plan of Treatment Not on file documented as of this encounter Procedures Procedure Name Priority Date/Time Associated Diagnosis Comments HEPATITIS B SURFACE ANTIGEN Routine 11/23/2006 3:50 PM PAINT PREP TECHNICIAN RUBELLA IGG Routine 11/23/2006 3:50 PM PAINT PREP TECHNICIAN CBC WITHOUT DIFFERENTIAL Routine 11/23/2006 3:50 PM PAINT PREP TECHNICIAN BLOOD GAS CORD ARTERIAL Routine 11/23/2006 4:09 AM PAINT PREP TECHNICIAN POC GLUCOSE Routine 11/23/2006 4:02 AM PAINT PREP TECHNICIAN POC GLUCOSE Routine 11/23/2006 3:10 AM PAINT PREP TECHNICIAN CBC WITHOUT DIFFERENTIAL Routine 11/23/2006 2:52 AM PAINT PREP TECHNICIAN documented in this encounter Results * HEPATITIS B SURFACE ANTIGEN (11/23/2006 3:50 PM PAINT PREP TECHNICIAN) HEPATITIS B SURFACE AG Negative INTERFACE SYSTEM 11/23/2006 3:50 PM PAINT PREP TECHNICIAN us Alvin Bosch MD CHEMISTRY ORDERABLES Edited INTERFACE SYSTEM Refer to clinic/hospital department * (ABNORMAL) CBC WITHOUT DIFFERENTIAL (11/23/2006 3:50 PM PAINT PREP TECHNICIAN) WBC 9.6 4.5 - 11.0 K/ul INTERFACE SYSTEM RBC 3.87(L) 4.20 - 5.40 Mil/ul INTERFACE SYSTEM HEMOGLOBIN 11.3(L) 12.0 - 16.0 g/dL INTERFACE SYSTEM HEMATOCRIT 33.5(L) 36.0 - 46.0 % INTERFACE SYSTEM MCV 86.6 84.0 - 103.0 Fl INTERFACE SYSTEM MCH 29.2 27.0 - 34.0 pg INTERFACE SYSTEM MCHC 33.7 30.0 - 35.0 g/dL INTERFACE SYSTEM RDW 15.0(H) 11.0 - 14.5 % INTERFACE SYSTEM PLATELETS 194 140 - 440 K/ul INTERFACE SYSTEM MPV 10.3 8.9 - 12.8 Fl INTERFACE SYSTEM NEUTROPHILS 70.4 42.2 - 75.2 % INTERFACE SYSTEM LYMPHOCYTES 20.4(L) 24.0 - 44.0 % INTERFACE SYSTEM MONOCYTES 8.2 2.0 - 10.0 % INTERFACE SYSTEM EOSINOPHILS 0.9 0.0 - 7.0 % INTERFACE SYSTEM BASOPHILS 0.1 0.0 - 1.0 % INTERFACE SYSTEM NEUTROPHIL ABSOLUTE 6.8 2.0 - 8.0 K/uL INTERFACE SYSTEM LYMPHOCYTE ABSOLUTE 2.0 1.2 - 4.0 K/ul INTERFACE SYSTEM MONOCYTE ABSOLUTE 0.8(H) 0.1 - 0.6 K/ul INTERFACE SYSTEM EOSINOPHIL ABSOLUTE 0.1 0.0 - 0.7 K/ul INTERFACE SYSTEM BASOPHILS ABSOLUTE 0.0 0.0 - 0.2 K/ul INTERFACE SYSTEM 11/23/2006 3:50 PM PAINT PREP TECHNICIAN us Alvin Bosch MD HEMATOLOGY ORDERABLES Edited Performing Organization Address [facility] Co de Phone Number INTERFACE SYSTEM Refer to clinic/hospital department * RUBELLA IGG (11/23/2006 3:50 PM PAINT PREP TECHNICIAN) RUBELLA IGG Immune Immune INTERFAC E SYSTEM 11/23/2006 3:50 PM PAINT PREP TECHNICIAN us Alvin Bosch MD CHEMISTRY ORDERABLES Edited Performing Organization Address [facility] de Phone Number INTERFACE SYSTEM Refer to clinic/hospital department * (ABNORMAL) BLOOD GAS CORD ARTERIAL (11/23/2006 4:09 AM PAINT PREP TECHNICIAN) SPECIMEN DESCRIPTION Arterial INTERFACE SYSTEM Comment:Sample not collected by [facility] PH CORD ARTERIAL 7.23 7.18 - 7.38 Unit INTERFACE SYSTEM PCO2 CORD ARTERIAL 63(H) 32 - 36 mmHg INTERFACE SYSTEM PO2 CORD ARTERIAL 12 mmHg INTERFACE SYSTEM HCO3 CORD ARTERIAL 26.4 17.0 - 27.0 mmol/l INTERFACE SYSTEM BASE EXCESS CORD ARTERIAL -1 -2 - 3 mmol/l INTERFACE SYSTEM O2 SAT EST CORD ARTERIAL 9 % INTERFACE SYSTEM TCO2 CORD 28 mmol/l INTERFACE SYSTEM 11/23/2006 4:09 AM PAINT PREP TECHNICIAN us Alvin Bosch MD ABG ORDERABLES Edite d Performing Organization Address [facility] de Phone Number INTERFACE SYSTEM Refer to clinic/hospital department * POC GLUCOSE (11/23/2006 4:02 AM PAINT PREP TECHNICIAN) GLUCOSE POC 71 60 - 100 mg/dL INTERFACE SYSTEM 11/23/2006 4:02 AM PAINT PREP TECHNICIAN us Alvin Bosch MD POINT OF CARE TESTING Edited Performing Organization Address [facility] Co de Phone Number INTERFACE SYSTEM Refer to clinic/hospital department * POC GLUCOSE (11/23/2006 3:10 AM PAINT PREP TECHNICIAN) GLUCOSE POC 76 60 - 100 mg/dL INTERFACE SYSTEM 11/23/2006 3:10 AM PAINT PREP TECHNICIAN Alvin Bosch MD POINT OF CARE TESTING Edited INTERFACE SYSTEM Refer to clinic/hospital department * (ABNORMAL) CBC WITHOUT DIFFERENTIAL (11/23/2006 2:52 AM PAINT PREP TECHNICIAN) WBC 11.9(H) 4.5 - 11.0 K/ul INTERFACE SYSTEM RBC 4.37 4.20 - 5.40 Mil/ul INTERFACE SYSTEM HEMOGLOBIN 12.9 12.0 - 16.0 g/dL INTERFACE SYSTEM HEMATOCRIT 38.1 36.0 - 46.0 % INTERFACE SYSTEM MCV 87.2 84.0 - 103.0 Fl INTERFACE SYSTEM MCH 29.5 27.0 - 34.0 pg INTERFACE SYSTEM MCHC 33.9 30.0 - 35.0 g/dL INTERFACE SYSTEM RDW 14.9(H) 11.0 - 14.5 % INTERFACE SYSTEM PLATELETS 219 140 - 440 K/ul INTERFACE SYSTEM MPV 10.6 8.9 - 12.8 Fl INTERFACE SYSTEM NEUTROPHILS 72.4 42.2 - 75.2 % INTERFACE SYSTEM LYMPHOCYTES 17.0(L) 24.0 - 44.0 % INTERFACE SYSTEM MONOCYTES 9.7 2.0 - 10.0 % INTERFACE SYSTEM EOSINOPHILS 0.8 0.0 - 7.0 % INTERFACE SYSTEM BASOPHILS 0.1 0.0 - 1.0 % INTERFACE SYSTEM NEUTROPHIL ABSOLUTE 8.6(H) 2.0 - 8.0 K/uL INTERFACE SYSTEM LYMPHOCYTE ABSOLUTE 2.0 1.2 - 4.0 K/ul INTERFACE SYSTEM MONOCYTE ABSOLUTE 1.2(H) 0.1 - 0.6 K/ul INTERFACE SYSTEM EOSINOPHIL ABSOLUTE 0.1 0.0 - 0.7 K/ul INTERFACE SYSTEM BASOPHILS ABSOLUTE 0.0 0.0 - 0.2 K/ul INTERFACE SYSTEM 11/23/2006 2:52 AM PAINT PREP TECHNICIAN Alvin Bosch MD HEMATOLOGY ORDERABLES Edited INTERFACE SYSTEM Refer to clinic/hospital department documented in this encounter Visit Diagnoses Diagnosis Previous delivery, delivered, with or without mention of antepartum condition- Primary documented in this encounter Care Teams Drilling Engineering Manager Relationship Specialty Start Date End Date Shira Platt DO [address] [place] [id number] PCP - General Family Practice 03/09/10 documented as of this encounter
--- OUTSIDE RECORDS SUMMARY | 2025-08-28 08:51 | XMS_ITS | Encounter Summary ---
Author Organization [facility] Address [address] [place] [address] Care Team Providers Care Investigations Consultant Name Role Phone Shira Platt DO Primary Care Provider Encounter Details Date Type Department Care Team (Latest Contact Info) Description 10/30/2006 Outpatient [facility] [address] [place] [address] Jay Mccall II, MD [address] [place] [address] Antepartum Diabetes Mellitus (Primary Dx); Encounter for Long-Term (Current) Use of Insulin ([facility]); Elderly Multigravida with Antepartum Condition or Complication Social History Tobacco Use Types Packs/Day Years Used Date Smoking Tobacco: Never Assessed Comments Unknown Sex and Gender Information Value Date Recorded Sex Assigned at Not on file Legal Sex Female 6:13 AM COMPLIANCE MGR Gender Identity Not on file Sexual Orientation Not on file documented as of this encounter Plan of Treatment Not on file documented as of this encounter Visit Diagnoses Diagnosis Antepartum diabetes mellitus- Primary Diabetes mellitus, antepartum Encounter for long-term (current) use of insulin ([facility]) Encounter for long-term (current) use of insulin Elderly multigravida with antepartum condition or complication documented in this encounter Care Teams Investigations Consultant Relationship Specialty Start Date End Date Shira Platt DO [address] [place] [address] PCP - General Family Practice 03/09/10 documented as of this encounter
--- OUTSIDE RECORDS SUMMARY | 2025-08-28 08:51 | XMS_ITS | Encounter Summary ---
Author Organization [facility] Address [address] [place] [address] Care Team Providers Care Coupon Collection Clerk Name Role Phone Shira Platt DO Primary Care Provider Encounter Details Date Type Department Care Team (Latest Contact Info) Description 06/25/2006 Outpatient [facility] [address] [place] [address] Jay Mccall II, MD [address] [place] [address] Benign Essential Hypertension Antepartum (Primary Dx); Antepartum Diabetes Mellitus; Elderly Multigravida with Antepartum Condition or Complication Social History Tobacco Use Types Packs/Day Years Used Date Smoking Tobacco: Never Assessed Comments Unknown Sex and Gender Information Value Date Recorded Sex Assigned at Not on file Legal Sex Female 6:13 AM EGG SMELLER Gender Identity Not on file Sexual Orientation Not on file documented as of this encounter Plan of Treatment Not on file documented as of this encounter Visit Diagnoses Diagnosis Benign essential hypertension antepartum- Primary Antepartum diabetes mellitus Diabetes mellitus, antepartum Elderly multigravida with antepartum condition or complication documented in this encounter Care Teams Coupon Collection Clerk Relationship Specialty Start Date End Date Shira Platt DO [address] [place] [address] PCP - General Family Practice 03/09/10 documented as of this encounter
--- OUTSIDE RECORDS SUMMARY | 2025-08-28 08:51 | XMS_ITS | Encounter Summary ---
Author Organization [facility] Address [address] [place] [address] Care Team Providers Care Ingredient Scaler Helper Name Role Phone Shira Platt DO Primary Care Provider [phone] Encounter Details Date Type Department Care Team (Latest Contact Info) Description 07/30/2006 Outpatient Historical [facility] LUMBER CARRIER OPERATOR [address] [place] [address] Alvin Bosch MD NO ADDRESS ON FILE Unspecified High-Risk (Primary Dx); Antepartum Diabetes Mellitus; Benign Essential Hypertension Antepartum; Elderly Multigravida with Antepartum Condition or Complication Social History Tobacco Use Types Packs/Day Years Used Date Smoking Tobacco: Never Assessed Comments Unknown Sex and Gender Information Value Date Recorded Sex Assigned at Not on file Legal Sex Female 6:13 AM OUTDOOR FITNESS TRAINER Gender Identity Not on file Sexual Orientation Not on file documented as of this encounter Plan of Treatment Not on file documented as of this encounter Visit Diagnoses Diagnosis Unspecified high-risk - Primary Antepartum diabetes mellitus Diabetes mellitus, antepartum Benign essential hypertension antepartum Elderly multigravida with antepartum condition or complication documented in this encounter Care Teams Ingredient Scaler Helper Relationship Specialty Start Date End Date Shira Platt DO [address] [facility] [place] [address] PCP - General Family Practice 03/09/10 documented as of this encounter
--- OUTSIDE RECORDS SUMMARY | 2025-08-28 08:51 | XMS_ITS | Encounter Summary ---
Author Organization [facility] Address [address] [place] [address] Care Team Providers Care Plant Maintenance Engineer Name Role Phone Shira Platt DO Primary Care Provider Encounter Details Date Type Department Care Team (Latest Contact Info) Description 11/20/2006 Outpatient Historical [facility] AGENT [address] [place] [address] Alvin Bosch MD NO ADDRESS ON FILE Unspecified High-Risk (Primary Dx) Social History Tobacco Use Types Packs/Day Years Used Date Smoking Tobacco: Never Assessed Comments Unknown Sex and Gender Information Value Date Recorded Sex Assigned at Not on file Legal Sex Female 6:13 AM IT RISK AND ASSURANCE SENIOR MANAGER Gender Identity Not on file Sexual Orientation Not on file documented as of this encounter Plan of Treatment Not on file documented as of this encounter Visit Diagnoses Diagnosis Unspecified high-risk - Primary documented in this encounter Care Teams Plant Maintenance Engineer Relationship Specialty Start Date End Date Shira Platt DO [address] [place] [address] PCP - General Family Practice 03/09/10 documented as of this encounter
--- OUTSIDE RECORDS SUMMARY | 2025-08-28 08:51 | XMS_ITS | Encounter Summary ---
Author Organization [facility] Address [address] [place] [address] Care Team Providers Care Vegetable Specker Name Role Phone Shira Platt DO Primary Care Provider Encounter Details Date Type Department Care Team (Latest Contact Info) Description 08/28/2006 Outpatient [facility] [address] [place] [address] Jay Mccall II, MD [address] [place] [address] Benign Essential Hypertension Antepartum (Primary Dx); Antepartum Diabetes Mellitus; Elderly Multigravida with Antepartum Condition or Complication Social History Tobacco Use Types Packs/Day Years Used Date Smoking Tobacco: Never Assessed Comments Unknown Sex and Gender Information Value Date Recorded Sex Assigned at Not on file Legal Sex Female 6:13 AM MONOTYPE OPERATOR Gender Identity Not on file Sexual Orientation Not on file documented as of this encounter Plan of Treatment Not on file documented as of this encounter Visit Diagnoses Diagnosis Benign essential hypertension antepartum- Primary Antepartum diabetes mellitus Diabetes mellitus, antepartum Elderly multigravida with antepartum condition or complication documented in this encounter Care Teams Vegetable Specker Relationship Specialty Start Date End Date Shira Platt DO [address] [place] [address] PCP - General Family Practice 03/09/10 documented as of this encounter
--- OUTSIDE RECORDS SUMMARY | 2025-08-28 08:51 | XMS_ITS | Encounter Summary ---
Author Organization [facility] Address [address] [place] [address] Care Team Providers Care External Grinder Tool Name Role Phone Shiar Platt DO Primary Care Provider Encounter Details Date Type Department Care Team (Latest Contact Info) Description 11/13/2006 Outpatient Historical [facility] TEST RIDER [address] [place] [phone] Alvin Bosch MD NO ADDRESS ON FILE Unspecified High-Risk (Primary Dx) Social History Tobacco Use Types Packs/Day Years Used Date Smoking Tobacco: Never Assessed Comments Unknown Sex and Gender Information Value Date Recorded Sex Assigned at Not on file Legal Sex Female 6:13 AM TINTER PHOTOGRAPH Gender Identity Not on file Sexual Orientation Not on file documented as of this encounter Plan of Treatment Not on file documented as of this encounter Visit Diagnoses Diagnosis Unspecified high-risk - Primary documented in this encounter Care Teams External Grinder Tool Relationship Specialty Start Date End Date Shira Platt DO [address] [place] [address] PCP - General Family Practice 03/09/10 documented as of this encounter
--- OUTSIDE RECORDS SUMMARY | 2025-08-28 08:51 | XMS_ITS | Encounter Summary ---
Author Organization [facility] Address [address] [place] [address] Care Team Providers Care De Icer Finisher Name Role Phone Shira Platt DO Primary Care Provider Encounter Details Date Type Department Care Team (Latest Contact Info) Description 11/06/2006 Outpatient Historical [facility] FACILITIES OFFICER [address] [place] [phone] Alvin Bosch MD NO ADDRESS ON FILE Unspecified High-Risk (Primary Dx) Social History Tobacco Use Types Packs/Day Years Used Date Smoking Tobacco: Never Assessed Comments Unknown Sex and Gender Information Value Date Recorded Sex Assigned at Not on file Legal Sex Female 6:13 AM SLEEVE SETTER LOCKSTITCH Gender Identity Not on file Sexual Orientation Not on file documented as of this encounter Plan of Treatment Not on file documented as of this encounter Visit Diagnoses Diagnosis Unspecified high-risk - Primary documented in this encounter Care Teams De Icer Finisher Relationship Specialty Start Date End Date Shira Platt DO [address] [place] [address] PCP - General Family Practice 03/09/10 documented as of this encounter
--- OUTSIDE RECORDS SUMMARY | 2025-08-28 08:51 | XMS_ITS | Encounter Summary ---
Author Organization [facility] Address [address] [place] [address] Care Team Providers Care Internist Name Role Phone Shira Platt DO Primary Care Provider Encounter Details Date Type Department Care Team (Latest Contact Info) Description 05/16/2006 Outpatient Historical [facility] [address] [place] [address] Jay Mccall II, MD [address] [place] [phone] Abnormal Maternal Glucose Tolerance, Antepartum (Primary Dx) Social History Tobacco Use Types Packs/Day Years Used Date Smoking Tobacco: Never Assessed Comments Unknown Sex and Gender Information Value Date Recorded Sex Assigned at Not on file Legal Sex Female 6:13 AM PATTERN DUPLICATOR Gender Identity Not on file Sexual Orientation Not on file documented as of this encounter Plan of Treatment Not on file documented as of this encounter Visit Diagnoses Diagnosis Abnormal maternal glucose tolerance, antepartum- Primary documented in this encounter Care Teams Internist Relationship Specialty Start Date End Date Shira Platt DO [address] [place] [address] PCP - General Family Practice 03/09/10 documented as of this encounter
--- OUTSIDE RECORDS SUMMARY | 2025-08-28 08:51 | XMS_ITS | Encounter Summary ---
Author Organization [facility] Address [address] [place] [address] Care Team Providers Care Gold Nib Grinder Name Role Phone Shira Platt DO Primary Care Provider Encounter Details Date Type Department Care Team (Latest Contact Info) Description 10/23/2006 Outpatient Historical [facility] FORGING MACHINE HAND National [address] [place] [phone] Alvin Bosch MD NO ADDRESS ON FILE Unspecified High-Risk (Primary Dx) Social History Tobacco Use Types Packs/Day Years Used Date Smoking Tobacco: Never Assessed Comments Unknown Sex and Gender Information Value Date Recorded Sex Assigned at Not on file Legal Sex Female 6:13 AM SOIL CONSERVATION TEACHER Gender Identity Not on file Sexual Orientation Not on file documented as of this encounter Plan of Treatment Not on file documented as of this encounter Visit Diagnoses Diagnosis Unspecified high-risk - Primary documented in this encounter Care Teams Gold Nib Grinder Relationship Specialty Start Date End Date Shira Platt DO [address] [place] [address] PCP - General Family Practice 03/09/10 documented as of this encounter
--- OUTSIDE RECORDS SUMMARY | 2025-08-28 08:51 | XMS_ITS | Patient Health Record ---
Author Organization [employer] Address [address] [place] [address] Care Team Providers Care Animal Nutrition Consultant Name Role Phone Lacy Rios Primary Care Provider FARTUN Magallanes Unavailable [phone] Allergies Allergen (clinical drug ingredient) Drug/Non Drug Allergy documented on EMR Reaction Allergy Type Onset Date Status Latex Latex Unknown Allergy Active Tape Unknown Allergy Active Tree Nuts Unknown Allergy Active Reason For Referral No Information Medications Medication SIG (Take, Route, Frequency, Duration) Notes Start Date End Date Status [id number]-[id number] Active Fenofibrate Active Aspir-81 Active Montelukast Sodium A ctive Lantus Active NovoLOG Active Lisinopril Active Lyrica Active Escitalopram &Njobcul-[id number]-D Active amLODIPine Besylate Active Venlafaxine HCl Acti ve Amitriptyline HCl Ac tive Social History Tobacco Use: Social History Observation Description Date Details (start date - stop date) Former Smoker NA - NA Tobacco Control (Standard) Question Answer Notes Tobacco use: Former smoker How long has it been since you last smoked? Grea ter than 10 years Problems Problem Type SNOMED Code ICD Code Onset Dates Problem Status W/U Status Risk Notes Problem Chronic cystitis (62209485) Chronic cystitis (N30.20) Active confirmed Plan Of Treatment Pending Test Test Name [place] [id number] 02/11/20 24 Insurance Providers Payer Name Payer Address Payer Phone Subscriber Number Group Number Insured Name Patient Relationship to Insured Coverage Start Date Coverage End Date [employer] [address] [place] [id number] [phone] [id number] Una Cruz Self - patient is the insured Healthy [facility] [address] [address] [place], [place] [id number] [phone] [id number] Una Cruz Self - patient is the insured Medical (General) History Medical History History ICD Code diabetes anxiety HTN Surgical History Surgery Date(Month/Year) broken finger cholecystectomy bladder sx x2 Hospitalization History Reason Date(Month/Year) see surgeries
--- OUTSIDE RECORDS SUMMARY | 2025-08-28 08:51 | XMS_ITS | Encounter Summary ---
Author Organization [facility] Address [address] [place] [address] Care Team Providers Care Lay Out Drafter Name Role Phone Shira Platt DO Primary Care Provider [phone] Encounter Details Date Type Department Care Team (Latest Contact Info) Description 09/24/2006 Outpatient [facility] [address] [place] [address] Jay Mccall II, MD [address] [place] [address] Antepartum Diabetes Mellitus (Primary Dx); Benign Essential Hypertension Antepartum; Elderly Multigravida with Antepartum Condition or Complication Social History Tobacco Use Types Packs/Day Years Used Date Smoking Tobacco: Never Assessed Comments Unknown Sex and Gender Information Value Date Recorded Sex Assigned at Not on file Legal Sex Female 6:13 AM POWER AND RECOVERY SHIFT ENGINEER Gender Identity Not on file Sexual Orientation Not on file documented as of this encounter Plan of Treatment Not on file documented as of this encounter Visit Diagnoses Diagnosis Antepartum diabetes mellitus- Primary Diabetes mellitus, antepartum Benign essential hypertension antepartum Elderly multigravida with antepartum condition or complication documented in this encounter Care Teams Lay Out Drafter Relationship Specialty Start Date End Date Shira Platt DO [address] [place] [address] PCP - General Family Practice 03/09/10 documented as of this encounter
--- OUTSIDE RECORDS SUMMARY | 2025-08-28 08:51 | XMS_ITS | Encounter Summary ---
Author Organization [facility] Address [address] [place] [address] Care Team Providers Care Printing Plate Setter Name Role Phone Shira Platt DO Primary Care Provider [phone] Encounter Details Date Type Department Care Team (Latest Contact Info) Description 09/08/2002 Outpatient Historical [facility] JAUNDICE NOS (Primary Dx) Social History Tobacco Use Types Packs/Day Years Used Date Smoking Tobacco: Never Assessed Comments Unknown Sex and Gender Information Value Date Recorded Sex Assigned at Not on file Legal Sex Female 6:13 AM CCIE Gender Identity Not on file Sexual Orientation Not on file documented as of this encounter Plan of Treatment Not on file documented as of this encounter Visit Diagnoses Diagnosis Jaundice, unspecified, not of - Primary documented in this encounter Care Teams Printing Plate Setter Relationship Specialty Start Date End Date Shira Platt DO [address] [place] [facility] [place] [address] PCP - General Family Practice 03/09/10 documented as of this encounter
--- OUTSIDE RECORDS SUMMARY | 2025-08-28 08:51 | XMS_ITS | Encounter Summary ---
Author Organization [facility] Address [address] [place] [address] Care Team Providers Care Funeral Arranger Name Role Phone Shira Platt DO Primary Care Provider Encounter Details Date Type Department Care Team (Latest Contact Info) Description 10/09/2006 Outpatient [facility] [address] [place] [address] Jay Mccall II, MD [address] [place] [phone] Antepartum Diabetes Mellitus (Primary Dx); Elderly Multigravida with Antepartum Condition or Complication Social History Tobacco Use Types Packs/Day Years Used Date Smoking Tobacco: Never Assessed Comments Unknown Sex and Gender Information Value Date Recorded Sex Assigned at Not on file Legal Sex Female 6:13 AM CLERICAL PROOFREADER Gender Identity Not on file Sexual Orientation Not on file documented as of this encounter Plan of Treatment Not on file documented as of this encounter Visit Diagnoses Diagnosis Antepartum diabetes mellitus- Primary Diabetes mellitus, antepartum Elderly multigravida with antepartum condition or complication documented in this encounter Care Teams Funeral Arranger Relationship Specialty Start Date End Date Shira Platt DO [address] [place] [address] PCP - General Family Practice 03/09/10 documented as of this encounter
--- OUTSIDE RECORDS SUMMARY | 2025-08-28 08:51 | XMS_ITS | Encounter Summary ---
Author Organization [facility] Address [address] [place] [address] Care Team Providers Care Radar Systems Engineer Name Role Phone Shira Platt DO Primary Care Provider Encounter Details Date Type Department Care Team (Latest Contact Info) Description 11/20/2006 Outpatient [facility] Maternal and Medicine-[facility] jen [address] [place] [address] Jay Mccall II, MD [address] [place] [address] Benign Essential Hypertension Antepartum (Primary Dx); Antepartum Diabetes Mellitus; Encounter for Long-Term (Current) Use of Insulin ([facility]) Social History Tobacco Use Types Packs/Day Years Used Date Smoking Tobacco: Never Assessed Comments Unknown Sex and Gender Information Value Date Recorded Sex Assigned at Not on file Legal Sex Female 6:13 AM CORPORATE STRATEGY ASSOCIATE Gender Identity Not on file Sexual Orientation Not on file documented as of this encounter Plan of Treatment Not on file documented as of this encounter Visit Diagnoses Diagnosis Benign essential hypertension antepartum- Primary Antepartum diabetes mellitus Diabetes mellitus, antepartum Encounter for long-term (current) use of insulin ([facility]) Encounter for long-term (current) use of insulin documented in this encounter Care Teams Radar Systems Engineer Relationship Specialty Start Date End Date Shira Platt DO [address] [place] [address] PCP - General Family Practice 03/09/10 documented as of this encounter
--- OUTSIDE RECORDS SUMMARY | 2025-08-28 08:51 | XMS_ITS | Encounter Summary ---
Author Organization [facility] Address [address] [place] [address] Care Team Providers Care Ambulance Paramedic Name Role Phone Shira Platt DO Primary Care Provider Encounter Details Date Type Department Care Team (Latest Contact Info) Description 08/27/2002 Outpatient Historical [facility] [address] [facility] [address] [place] [phone] CHOLELITHIASIS NOS (Primary Dx) Social History Tobacco Use Types Packs/Day Years Used Date Smoking Tobacco: Never Assessed Comments Unknown Sex and Gender Information Value Date Recorded Sex Assigned at Not on file Legal Sex Female 6:13 AM FORWARD AIR CONTROLLER/AIR OFFICER Gender Identity Not on file Sexual Orientation Not on file documented as of this encounter Plan of Treatment Not on file documented as of this encounter Visit Diagnoses Diagnosis Calculus of gallbladder without mention of cholecystitis or obstruction- Primary documented in this encounter Care Teams Ambulance Paramedic Relationship Specialty Start Date End Date Shira Platt DO [address] [place] [address] PCP - General Family Practice 03/09/10 documented as of this encounter
--- OUTSIDE RECORDS SUMMARY | 2025-08-28 08:51 | XMS_ITS | Clinical Summary ---
Author Organization [facility] Address [address] [facility] Attn: Epic Prelude ADT KYLE PALMER [address] Care Team Providers Care Supervisor Research Kennel Name Role Phone Jolanta Plattorah Adenike CORTES Primary Care Provider Allergies Active Allergy Reactions Criticality Noted Date Comments Latex Rash Low 10/02/2008 Active Problems Problem Noted Date Diagnosed Date VEL (obstructive sleep apnea) 12/08/2009 Overview (02/03/2021): Sleep study (11/17): Optimal CPAP: 9 cm H2O Closed fracture of metatarsal bone(s) 03/30/2009 Overview (02/03/2021): Right base of 5th Obesity 01/21/2009 Elevated rheumatoid factor 01/02/2009 Overview (02/03/2021): RF: 28.4 (12/14) Normal CCP (01/14) Migraine 10/02/2008 Breast CA Screening 10/02/2008 Overview (02/03/2021): Mammo: 01/14; 2007 HTN (hypertension), benign 10/02/2008 Fibromyalgia syndrome 10/02/2008 Endometriosis 10/02/2008 Depression Diabetes Overview (02/03/2021): A1C: 6.0 (10/17); 5.8 (06/16); 5.4 (12/14); 5.2 (09/14) Diagnosed 2000 ADD (attention deficit disorder) Immunizations Immunization Administration Dates Next Due (TDVAX)(7 YRS UP) TETANUS AN D DIPHTHERIA TOXOIDS, ADSORBED (2 LF OF TETANUS TOXOID AND 2 LF OF DIPHTHERIA TOXOID), 0.5ML (PF), IM 01/06/2001 Influenza Seasonal Unspecifi ed Formulation IM 08/01/2008 Influenza Vaccine Split 3+ Yrs IM 08/10/2010,05/2010,07/05/2009 Family History Medical History Relation Name Comments Diabetes Mother Hypertension Mother Relation Name Status Comments Mother Social History Tobacco Use Types Packs/Day Years Used Date Smoking Tobacco: Never Smokeless Tobacco: Never Alcohol Use Standard Drinks/Week Comments No 0 (1 standard drink = 0.6 oz pur e alcohol) Comments Unknown Sex and Gender Information Value Date Recorded Sex Assigned at Not on file Legal Sex Female 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 Gender Identity Not on file Sexual Orientation Not on file Plan of Treatment Health Maintenance Due Date Last Done Comments HPV/Cotest (21-29) 1986 CERVICAL CANCER SCREENING 1995 HPV/Cotest (30-65) 1995 PAP SMEAR 1995 DTAP/TDAP/TD VACCINES (1 - Tdap) 01/07/2001 01/06/2001 BREAST CANCER SCREENING 01/18/2010 01/18/2009, 01/18 COLORECTAL SCREENING 2010 Colorectal Cancer Screening 2010 FIT-DNA Q 3 years 2010 FIT/FOBT Q 1 year 2010 Flex Sig/CT Colonography Q 5 years 2010 ZOSTER VACCINE (1 of 2) 2015 INFLUENZA VACCINE (#1) 2025 0, 10/15/2009, 07/05/2009, Additional history exists RSV VACCINE (60+ or ) (1 - 1-dose 75+ series) 2040 HEPATITIS B VACCINES Aged Out No long er eligible based on patient's age to complete this topic Procedures Procedure Name Priority Date/Time Associated Diagnosis Comments MAMMO SCREENING BILAT Routine 01/18/2009 7:33 AM CDT Other screening mammogram from Last 3 Months or Most Recently Relevant to Health Maintenance Results * MAMMO SCREENING BILAT (01/18/2009 7:33 AM CDT) Anatomical Region Laterality Modality Breast Bilateral Other Addenda Addendum by Roslyn Alves MD on 02/15/2009 1:08 PM CDT ADDENDUM: Outside films from [facility], dated 09.06.04, were compared to the [place] screening exam of 01.14.09. Findings are stable. Yearly exams are recommended. Addendum dictated on 02.11.09. Narrative 02/15/2009 1:08 PM CDT Bilateral Mammogram Reason for Exam: Screening Comparison: No prior exam(s) for comparison. Findings: Bilateral CC and MLO views were obtained. This examination was reviewed with the aid of a computer-aided detection system(CAD). The breast tissue is dense. Prior films are not available at the time of this reading. We are attempting to retrieve those exams for comparison. No discrete abnormality is noted. Procedure Note Roslyn Alves MD - 12/21/2022 Bilateral Mammogram Reason for Exam: Screening Comparison: No prior exam(s) for comparison. Findings: Bilateral CC and MLO views were obtained. This examination was reviewed with the aid of a computer-aided detection system(CAD). The breast tissue is dense. Prior films are not available at the time of this reading. We are attempting to retrieve those exams for comparison. No discrete abnormality is noted. Scott Luevano MD MAMMO ORDERABLES Final Res ult from Last 3 Months or Most Recently Relevant to Health Maintenance Care Teams Supervisor Research Kennel Relationship Specialty Start Date End Date Shira Platt DO [address] [place] [address] PCP - General Family Practice 03/09/10
--- OUTSIDE RECORDS SUMMARY | 2025-08-28 08:51 | XMS_ITS | Encounter Summary ---
Author Organization [facility] Address [address] [place] [address] Care Team Providers Care Link Machine Operator Name Role Phone Shira Platt DO Primary Care Provider Encounter Details Date Type Department Care Team (Latest Contact Info) Description 05/28/2006 Outpatient [facility] jen [address] [place] [address] Jay Mccall II, MD [address] [place] [address] Benign Essential Hypertension Antepartum (Primary Dx); Antepartum Diabetes Mellitus; Elderly Multigravida with Antepartum Condition or Complication Social History Tobacco Use Types Packs/Day Years Used Date Smoking Tobacco: Never Assessed Comments Unknown Sex and Gender Information Value Date Recorded Sex Assigned at Not on file Legal Sex Female 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
--- OUTSIDE RECORDS SUMMARY | 2025-08-28 08:51 | XMS_ITS | Encounter Summary ---
Author Organization [facility] Address [address] [place] [address] Care Team Providers Care Florist Helper Name Role Phone Shira Platt DO Primary Care Provider [phone] Encounter Details Date Type Department Care Team (Latest Contact Info) Description 07/30/2006 Outpatient [facility] M[facility] and [facility] jen [address] [place] [address] Jay Mccall II, MD [address] [place] [address] Benign Essential Hypertension Antepartum (Primary Dx); Antepartum Diabetes Mellitus; Encounter for Long-Term (Current) Use of Insulin (CMS/FORMERLY [facility]); Elderly Multigravida with Antepartum Condition or Complication Social History Tobacco Use Types Packs/Day Years Used Date Smoking Tobacco: Never Assessed Comments Unknown Sex and Gender Information Value Date Recorded Sex Assigned at Not on file Legal Sex Female 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 Gender Identity Not on file Sexual Orientation Not on file documented as of this encounter Plan of Treatment Not on file documented as of this encounter Visit Diagnoses Diagnosis Benign essential hypertension antepartum- Primary Antepartum diabetes mellitus Diabetes mellitus, antepartum Encounter for long-term (current) use of insulin (CMS/HCC) Encounter for long-term (current) use of insulin Elderly multigravida with antepartum condition or complication documented in this encounter Care Teams Florist Helper Relationship Specialty Start Date End Date Shira Platt DO [address] [place] [address] PCP - General Family Practice 03/09/10 documented as of this encounter
--- OUTSIDE RECORDS SUMMARY | 2025-08-28 08:51 | XMS_ITS | Encounter Summary ---
Author Organization [facility] Address [address] [place] [address] Care Team Providers Care Pacs Administrator Name Role Phone Shira Platt DO Primary Care Provider Encounter Details Date Type Department Care Team (Latest Contact Info) Description 11/13/2006 Outpatient [facility] jen [address] [place] [address] Jay Mccall II, MD [address] [place] [address] Antepartum Diabetes Mellitus (Primary Dx); Benign Essential Hypertension Antepartum; Elderly Multigravida with Antepartum Condition or Complication Social History Tobacco Use Types Packs/Day Years Used Date Smoking Tobacco: Never Assessed Comments Unknown Sex and Gender Information Value Date Recorded Sex Assigned at Not on file Legal Sex Female 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
--- OUTSIDE RECORDS SUMMARY | 2025-08-28 08:51 | XMS_ITS | Encounter Summary ---
Author Organization [facility] Address [address] [place] [address] Care Team Providers Care Online Producer Name Role Phone Shira Platt DO Primary Care Provider Encounter Details Date Type Department Care Team (Latest Contact Info) Description 10/16/2006 Outpatient Historical [facility] LICENSED PROSTHETIST 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
--- OUTSIDE RECORDS SUMMARY | 2025-08-28 08:51 | XMS_ITS | Encounter Summary ---
Author Organization [facility] Address [address] [place] [address] Care Team Providers Care Solar Project Manager Name Role Phone Shira Platt DO Primary Care Provider [phone] Encounter Details Date Type Department Care Team (Late st Contact Info) Description 05/16/2006 Outpatient [facility] Social History Tobacco Use Types Packs/Day Years Used Date Smoking Tobacco: Never Assessed Comments Unknown Sex and Gender Information Value Date Recorded Sex Assigned at Not on file Legal Sex Female 6:13 AM PROGRAM MANAGER SLP Gender Identity Not on file Sexual Orientation Not on file documented as of this encounter Plan of Treatment Not on file documented as of this encounter Visit Diagnoses Not on filedocumented in this encounter Care Teams Solar Project Manager Relationship Specialty Start Date End Date Shira Platt DO [address] [facility] [place] [address] PCP - General Family Practice 03/09/10 documented as of this encounter
--- OUTSIDE RECORDS SUMMARY | 2025-08-28 08:51 | XMS_ITS | Encounter Summary ---
Author Organization [facility] Address [address] [place] [address] Care Team Providers Care Snake Charmer Name Role Phone Shira Platt DO Primary Care Provider [phone] Encounter Details Date Type Department Care Team (Late st Contact Info) Description 01/18/2009 Ancillary Orders [facility] Medicine [address] [phone] Scott Luevano MD NO ADDRESS ON FILE Social History Tobacco Use Types Packs/Day Years Used Date Smoking Tobacco: Never Assessed Comments No Sex and Gender Information Value Date Recorded Sex Assigned at Not on file Legal Sex Female 6: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
--- OUTSIDE RECORDS SUMMARY | 2025-08-28 08:51 | XMS_ITS | Encounter Summary ---
Author Organization [facility] Address [address] [place] [address] Care Team Providers Care Supervisor Refractory Products Name Role Phone Shira Platt DO Primary Care Provider [phone] Encounter Details Date Type Department Care Team (Latest Contact Info) Description 01/04/2007 Outpatient Historical [facility] Alvin Bosch MD NO ADDRESS ON FILE Routine Follow-Up (Primary Dx) Social History Tobacco Use Types Packs/Day Years Used Date Smoking Tobacco: Never Assessed Comments Unknown Sex and Gender Information Value Date Recorded Sex Assigned at Not on file Legal Sex Female 6:13 AM ACCOUNTS PAYABLE LEAD Gender Identity Not on file Sexual Orientation Not on file documented as of this encounter Plan of Treatment Not on file documented as of this encounter Visit Diagnoses Diagnosis Routine follow-up- Primary documented in this encounter Care Teams Supervisor Refractory Products Relationship Specialty Start Date End Date Shira Platt DO [address] [place] [id number] PCP - General Family Practice 03/09/10 documented as of this encounter
--- OUTSIDE RECORDS SUMMARY | 2025-08-28 08:51 | XMS_ITS | Encounter Summary ---
Author Organization [facility] Address [address] [place] [address] Care Team Providers Care Dynamometer Tester Engine Name Role Phone Shira Platt DO Primary Care Provider Encounter Details Date Type Department Care Team (Latest Contact Info) Description 10/23/2006 Outpatient [facility] [address] [place] [address] Christiano Del Angel MD [address] [place] [phone] Antepartum Diabetes Mellitus (Primary Dx); Benign Essential Hypertension Antepartum; Elderly Multigravida with Antepartum Condition or Complication Social History Tobacco Use Types Packs/Day Years Used Date Smoking Tobacco: Never Assessed Comments Unknown Sex and Gender Information Value Date Recorded Sex Assigned at Not on file Legal Sex Female 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
--- OUTSIDE RECORDS SUMMARY | 2025-08-28 08:51 | XMS_ITS | Encounter Summary ---
Author Organization [facility] Address [address] [place] [address] Care Team Providers Care Gas Attendant Name Role Phone Shira Platt DO Primary Care Provider Encounter Details Date Type Department Care Team (Latest Contact Info) Description 08/28/2006 Outpatient Historical [facility] GEOLOGICAL SAMPLE TESTER 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
--- OUTSIDE RECORDS SUMMARY | 2025-08-28 08:51 | XMS_ITS | Encounter Summary ---
Author Organization [facility] Address [address] [place] [address] Care Team Providers Care Equipment Oiler Name Role Phone Shira Platt DO Primary Care Provider [phone] Encounter Details Date Type Department Care Team (Late st Contact Info) Description 05/16/2006 Outpatient Historical [facility] Social History Tobacco Use Types Packs/Day Years Used Date Smoking Tobacco: Never Assessed Comments Unknown Sex and Gender Information Value Date Recorded Sex Assigned at Not on file Legal Sex Female 6:13 AM REWRITER Gender Identity Not on file Sexual Orientation Not on file documented as of this encounter Plan of Treatment Not on file documented as of this encounter Visit Diagnoses Not on filedocumented in this encounter Care Teams Equipment Oiler Relationship Specialty Start Date End Date Shira Platt DO [address] [place] [facility] [place] [facility] [place] [address] PCP - General Family Practice 03/09/10 documented as of this encounter
--- OUTSIDE RECORDS SUMMARY | 2025-08-28 08:51 | XMS_ITS | Clinical Summary ---
Author Organization [facility] Address Formerly [facility] [place] [address] Care Team Providers Care Supervisor Solder Making Name Role Phone Giulia, Shira Adenike CORTES Primary Care Provider Allergies Active Allergy Reactions Criticality Noted Date Comments Latex Rash Low 10/02/2008 Medications albuterol (PROVENTIL,VENT DIANN) 90 mcg/Actuation Inhalation HFAA Take 2 Puffs by inhalation every 4 hours as needed for Wheezing and Shortness of Breath. 1 Inhaler 3 0 Active blood sugar diagnostic (ACCU-CHEK ACTIVE TEST) StrpIndications :Diabetes by See Admin Instructions route 4 times daily before meals and at bedtime. 100 Strip 12 0 Active LORazepam (ATIVAN) 0.5 mg Oral tablet Take 1 Tab by mouth 2 times daily as needed. 40 Tab 3 0 Active acetaminophen-i someth-dichlora l (MIDRIN) 325-65-100 mg Oral capsule Take 1 Cap by mouth every 4 hours as needed. 30 Cap 6 1 Active buPROPion SR 12 hour (BUDEPRION SR) 150 mg Oral tablet Take 1 Tab by mouth 3 times daily. 3 tabs daily 90 Tab 12 1 Active CYCLOBENZAPRINE HCL (FLEXERIL ORAL) Take by mouth. Activ e naproxen (NAPROSYN) 500 mg Oral tabletIndicatio ns:Myalgia and myositis Take 1 Tab by mouth 2 times daily with meals. 60 Tab 6 1 Active pregabalin (LYRICA) 75 mg Oral CapIndications: Fibromyalgia syndrome Take 1 Cap by mouth every 12 hours. 180 Cap 5 1 Active sitaGLIPtin-Met FORMIN (JANUMET) 50-1,000 mg Oral tablet Take 1 Tab by mouth 2 times daily with meals. 60 Tab 12 1 Active desvenlafaxine SR 24 hour (PRISTIQ) 100 mg Oral [id number] :Fibromyalgia syndrome Take 1 Tab by mouth daily with breakfast. 30 Tab 6 1 Active lisinopril (PRINIVIL) 40 mg Oral tabletIndicatio ns:HTN (hypertension), benign Take 1 Tab by mouth daily. 90 Tab 4 1 Active amLODIPine (NORVASC) 5 mg Oral tabletIndicatio ns:HTN (hypertension), benign Take 1 Tab by mouth daily. 90 Tab 4 1 Active traMADol (ULTRAM) 50 mg Oral tablet Take 1 Tab by mouth every 6 hours as needed for Pain. 90 Tab 3 1 Active methocarbamol (ROBAXIN) 500 mg Oral tabletIndicatio ns:Low back pain radiating to both legs,Bilateral hip pain Take 1 Tab by mouth 3 times daily as needed for Pain. 90 Tab 3 1 Active Active Problems Problem Noted Date Diagnosed Date VEL (obstructive sleep apnea) 12/08/2009 Overview (12/08/2009): Sleep study (11/17): Optimal CPAP: 9 cm H2O Closed fracture of metatarsal bone(s) 03/30/2009 Overview (03/30/2009): Right base of 5th Obesity 01/21/2009 Elevated rheumatoid factor 01/02/2009 Overview (01/22/2009): RF: 28.4 (12/14) Normal CCP (01/14) Migraine 10/02/2008 Fibromyalgia syndrome 10/02/2008 Breast CA Screening 10/02/2008 Overview (01/19/2009): Mammo: 01/14; 2006 HTN (hypertension), benign 10/02/2008 Endometriosis 10/02/2008 Diabetes Overview (10/16/2009): A1C: 6.0 (10/17); 5.8 (06/16); 5.4 (12/14); 5.2 (09/14) Diagnosed 2000 Depression ADD (attention deficit disorder) Immunizations Immunization Administration [...] = 0.6 oz pur e alcohol) Comments No Sex and Gender Information Value Date Recorded Sex Assigned at Not on file 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 Gender Identity Not on file Sexual Orientation Not on file Last Filed Vital Signs Vital Sign Reading Time Taken Comments Blood Pressure 114/64 03/23/2011 11:18 AM CDT Pulse 100 03/23/2011 11:18 AM CDT Temperature 36.8 C (98.2 F) 03/23/2011 11:18 AM CDT Respiratory Rate 20 03/23/2011 11:18 AM CDT Oxygen Saturation 97% 03/09/2010 2:05 PM CDT Inhaled Oxygen Concentration - - Weight 126.6 kg (279 lb) 03/23/2011 11:18 AM CDT Height 175.3 cm (5' 9 ) 03/23/2011 11:18 AM CDT Body Mass Index 41.2 03/23/2011 11:18 AM CDT Plan of Treatment Health Maintenance Due Date Last Done Comments DIABETES ANNUAL RETINAL EXAM 1983 HPV/Cotest (21-29) 1986 CERVICAL CANCER SCREENING 1995 HPV/Cotest (30-65) 1995 PAP SMEAR 1995 DTAP/TDAP/TD VACCINES (1 - Tdap) 01/07/2001 01/06/2001 BREAST CANCER SCREENING 01/18/2010 01/18/2009 COLORECTAL SCREENING 2010 Colorectal Cancer Screening 2010 FIT-DNA Q 3 years 2010 FIT/FOBT Q 1 year 2010 Flex Sig/CT Colonography Q 5 years 2010 DIABETES HBA1C Q 6 MONTHS 09/22/20112010, 12/09/2010, 08/10/2010, Additional history exists DIABETES ANNUAL FOOT EXAM 03/23/2012 03/23/2011 DIABETES MICROALBUMIN ANNUAL SCREEN 03/23/2012 03/23/2011 LDL CHOLESTEROL ANNUAL 03/23/2012 1, 12/09/2010, 08/10/2010, Additional history exists RSV VACCINE (60+ or ) (1 - Risk 50-74 years 1-dose series) 2015 ZOSTER VACCINE (1 of 2) 2015 INFLUENZA VACCINE (#1) 2025 0, 10/15/2009, 07/05/2009, Additional history exists HEPATITIS B VACCINES Aged Out No long er eligible based on patient's age to complete this topic Procedures Procedure Name Priority Date/Time Associated Diagnosis Comments MICROALBUMIN/CREATIN INE RATIO, RANDOM UR Routine 03/23/2011 12:14 PM CDT Diabetes LIPID PANEL Routine 03/23/2011 12:13 PM CDT Diabetes HEMOGLOBIN A1C Routine 03/23/2011 12:13 PM CDT Diabetes MAMMO SCREENING BILAT Routine 01/18/2009 7:33 AM CDT Screening Mammogram from Last 3 Months or Most Recently Relevant to Health Maintenance Results * MICROALBUMIN/CREATININE RATIO, RANDOM UR (03/23/2011 12:14 PM CDT) MICROALBUMIN URINE 1.3 MG/DL [facility] Creatinine, Urine 150 MG/DL [facility] MICROALBUMIN/CREA T RATIO, UR 8.7 MCG/MG CREAT. [facility] Comment: NORMAL: <30 MCG/MG CREAT MICROALBUMINURIA: 30-300 MCG/MG CREAT CLINICAL ALBUMINURIA: >300 MCG/MG CREAT Urine specimen (specimen) 03/23/2011 12:14 PM CDT 03/23/2011 12:15 PM CDT us Shiranirmala Zeeehan DO URINE ORDERABLES Final Resu lt Performing Organization Address [facility] Co de Phone Number [facility] CLIA# [id number] [place] [address] * HEMOGLOBIN A1C (03/23/2011 12:13 PM CDT) HEMOGLOBIN A1C 5.9 4.0 - 6.0 % [facility] Blood specimen (specimen) 03/23/2011 12:13 PM CDT 03/23/2011 12:14 PM CDT us Shiranirmala Platt DO CHEMISTRY ORDERABLES Final Result Performing Organization Address [facility] de Phone Number [facility] CLIA# [id number] [address] [place] [address] * (ABNORMAL) LIPID PANEL (03/23/2011 12:13 PM CDT) CHOLESTEROL 157 100 - 200 MG/DL [facility] TRIGLYCERIDE 331(H) 0 - 150 MG/DL [facility] HDL 27(L) 40 - 60 MG/DL [facility] LDL CALCULATED 64 58 - 100 MG/DL [facility] Comment: CALCULATED LDL REFERENCE: < 100 Optimal 100 - 129 Near Optimal 130 - 159 Borderline High > 160 High Risk CHOL/HDL RATIO 5.81(H) 3.27 - 4.44 RATIO [facility] Blood specimen (specimen) 03/23/2011 12:13 PM CDT 03/23/2011 12:14 PM CDT us Shiranirmala Zeeehan DO CHEMISTRY ORDERABLES Final Result Performing Organization Address [facility] Co de Phone Number [facility] CLIA# [id number] [address] [place] [address] * MAMMO SCREENING BILAT (01/18/2009 7:33 AM CDT) Anatomical Region Laterality Modality Breast Bilateral Mammography Addenda Addendum by Roslyn Alves MD on 02/15/2009 1:08 PM CDT ADDENDUM: Outside films from [facility], dated 09.06.04, were compared to the [place] screening exam of 01.14.09. Findings are stable. Yearly exams are recommended. Addendum dictated on 02.11.09. Narrative 02/12/2009 10:18 AM CDT Bilateral Mammogram Reason for Exam: Screening [...] discrete abnormality is noted. Procedure Note Roslyn Alvse MD - 01/19/2009 Bilateral Mammogram Reason for Exam: Screening Comparison: No prior exam(s) for comparison. Findings: Bilateral CC and MLO views were obtained. This examination was reviewed with the aid of a computer-aided detectionsystem(CAD). The breast tissue is dense. Prior films are not available at the time ofthis reading. We are attempting to retrieve those exams for comparison. No discrete abnormality is noted. Scott Luevano MD MAMMO ORDERABLES Edited Re sult - Final from Last 3 Months or Most Recently Relevant to Health Maintenance Insurance MEDICAID [place] Care Teams Supervisor Solder Making Relationship Specialty Start Date End Date Shira Platt DO [address] [place] [address] PCP - General Family Practice 03/09/10
--- OUTSIDE RECORDS SUMMARY | 2025-08-28 08:51 | XMS_ITS | Encounter Summary ---
Author Organization [facility] Address [address] [place] [address] Care Team Providers Care Systems Security Consultant Name Role Phone Shira Platt DO Primary Care Provider [phone] Encounter Details Date Type Department Care Team (Latest Contact Info) Description 11/22/2006 Outpatient Historical [facility] Alvin Bosch MD NO ADDRESS ON FILE Other Threatened Labor, Antepartum (Primary Dx) Social History Tobacco Use Types Packs/Day Years Used Date Smoking Tobacco: Never Assessed Comments Unknown Sex and Gender Information Value Date Recorded Sex Assigned at Not on file 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
--- OUTSIDE RECORDS SUMMARY | 2025-08-28 08:51 | XMS_ITS | Encounter Summary ---
Author Organization [facility] Address [address] [place] [address] Care Team Providers Care Blasting Cap Assembler Name Role Phone Shira Platt DO Primary Care Provider Encounter Details Date Type Department Care Team (Latest Contact Info) Description 11/06/2006 Outpatient 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
--- OUTSIDE RECORDS SUMMARY | 2025-08-28 08:51 | XMS_ITS | Encounter Summary ---
Author Organization [facility] Address [address] [place] [address] Care Team Providers Care Straw Hat Brim Raiser Operator Name Role Phone Shira Platt Primary Care Provider Encounter Details Date Type Department Care Team (Late st Contact Info) Description 01/18/2009 Ancillary Orders [facility] Imaging External Read [address] [place] [address] Scott Luevano MD NO ADDRESS ON FILE Screening Mammogram Social History Tobacco Use Types Packs/Day Years Used Date Smoking Tobacco: Never Assessed Comments No Sex and Gender Information Value Date Recorded Sex Assigned at Not on file 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 Findings are stable. [...] noted. Procedure Note Roslyn Alves MD - 01/19/2009 Bilateral Mammogram Reason for Exam: Screening Comparison: No prior exam(s) for comparison. Findings: Bilateral CC and MLO views were obtained. This examination was reviewed with the aid of a computer-aided detectionsystem(CAD). The breast tissue is dense. Prior films are not available at the time ofthis reading. We are attempting to retrieve those exams for comparison. No discrete abnormality is noted. us Scott Luevano MD MAMMO ORDERABLES Edited Re lizt - Final documented in this encounter Visit Diagnoses Diagnosis Screening mammogram Other screening mammogram documented in this encounter Care Teams Straw Hat Brim Raiser Operator Relationship Specialty Start Date End Date Shira Platt DO [address] [place] [address] PCP - General Family Practice 03/09/10 documented as of this encounter
--- OUTSIDE RECORDS SUMMARY | 2025-08-28 08:51 | XMS_ITS | Encounter Summary ---
Author Organization [facility] Address [address] [place] [address] Care Team Providers Care City Clerk Name Role Phone Shira Platt DO Primary Care Provider [phone] Encounter Details Date Type Department Care Team (Latest Contact Info) Description 09/24/2006 Outpatient Historical [facility] [employer]G [employer] 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
--- OUTSIDE RECORDS SUMMARY | 2025-08-28 08:51 | XMS_ITS | Encounter Summary ---
Author Organization [facility] Address [address] [place] [address] Care Team Providers Care [employer] Volleyball Coach Name Role Phone Shira Platt DO Primary Care Provider [phone] Encounter Details Date Type Department Care Team (Latest Contact Info) Description 10/16/2006 Outpatient [facility] jen [address] [place] [address] Jay Mccall II, MD [address] [place] [phone] Antepartum Diabetes Mellitus (Primary Dx); Elderly Multigravida with Antepartum Condition or Complication Social History Tobacco Use Types Packs/Day Years Used Date Smoking Tobacco: Never Assessed Comments Unknown Sex and Gender Information Value Date Recorded Sex Assigned at Not on file 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
--- OUTSIDE RECORDS SUMMARY | 2025-08-28 08:51 | XMS_ITS | Encounter Summary ---
Author Organization [facility] Address [address] [place] [address] Care Team Providers Care Watch Engine Operator Name Role Phone Shira Platt DO Primary Care Provider Encounter Details Date Type Department Care Team (Late st Contact Info) Description 06/16/2006 Outpatient Historical [facility] [address] [place] [address] Jay Mccall II, MD [address] [place] [phone] Social History Tobacco Use Types Packs/Day Years Used Date Smoking Tobacco: Never Assessed Comments Unknown Sex and Gender Information Value Date Recorded Sex Assigned at Not on file 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
--- OUTSIDE RECORDS SUMMARY | 2025-08-28 08:51 | XMS_ITS | Encounter Summary ---
Author Organization [facility] Address [address] [place] [address] Care Team Providers Care Managing Broker Name Role Phone Shira Platt DO Primary Care Provider Encounter Details Date Type Department Care Team (Latest Contact Info) Description 10/09/2006 Outpatient Historical [facility] [employer] 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
--- NOTE | 2025-08-28 09:01 | CT_ITS ---
WS: [id number] CT CERVICAL TRAUMA TECHNIQUE: Noncontrast CT of the cervical spine with coronal and sagittal reformatted images. CLINICAL INFORMATION: trauma COMPARISON: MRI 2023 DLP: 1501.[address] scans at [facility] use at least one of these dose optimization techniques: automated exposure control; mA and/or kV adjustment per patient size (includes targeted exams where dose is matched to clinical indication); or iterative reconstruction. FINDINGS: Reversal of the normal cervical lordosis. Slight anterolisthesis C3 on C4 and C4 on C5. Disc base narrowing C5-C7. Disc osteophyte complex C6-7 with mild central canal stenosis. Normal craniocervical junction. Normal C1-C2 articulation. Dens is normal in appearance. Normal occipital condyles. Normal C1 ring. No evidence of acute fracture or dislocation. Normal prevertebral soft tissues. Mastoids air cells are well aerated. CT/CT cervical spin wo con* [id number] IMPRESSION: No evidence of acute fracture or dislocation
--- NOTE | 2025-08-28 09:01 | CT_ITS ---
WS: [id number] CT HEAD TECHNIQUE: Noncontrast CT of the head obtained from the skullbase to the vertex. CLINICAL INFORMATION: multiple falls/r arm numbness COMPARISON: 2021 DLP: 1501.[address] scans at [facility] use at least one of these dose optimization techniques: automated exposure control; mA and/or kV adjustment per patient size (includes targeted exams where dose is matched to clinical indication); or iterative reconstruction. FINDINGS: No evidence of intracranial hemorrhage or mass effect. Ventricular system and basal cisterns are patent. Mild small vessel changes with mild parenchymal volume loss. No extra-axial fluid collections. No evidence of mass or mass effect. Vascular calcification. Paranasal sinuses and mastoid air cells are well aerated. .Normal visualized soft tissues. Hyperostosis frontalis. CT/CT head wo con* [id number] IMPRESSION: 1. No evidence of intracranial hemorrhage or mass effect. 2. No acute intracranial findings.
--- NOTE | 2025-08-28 09:01 | CT_ITS ---
WS: [id number] CT LUMBAR SPINE TECHNIQUE: Noncontrast CT of the lumbar spine with coronal and sagittal reformatted images. CLINICAL INFORMATION: trauma COMPARISON: 2022 DLP: 1019.[address] scans at [facility] use at least one of these dose optimization techniques: automated exposure control; mA and/or kV adjustment per patient size (includes targeted exams where dose is matched to clinical indication); or iterative reconstruction. FINDINGS: Acute compression fracture superior endplate L1 with visualized fracture cleft. Mild compression of the superior endplate with slight retropulsion. Mild narrowing of the thecal sac and subarticular recess. Mild compression inferior endplate L2 is new from previous but has a chronic appearance. Pedicle screw fixation L4-5 with interbody fusion is new compared to previous CT/CT lumbar spine wo con* [id number] IMPRESSION: 1. Mild acute compression fracture L1 superior endplate 2. Minimal retropulsion of the posterior superior cortex with slight effacemen t of the ventral thecal sac and narrowing of the subarticular recess
[2025-08-28 09:09] LABS: Hematocrit 40.4 % (36-47); Hemoglobin 14.20 g/dL (11.27-16.99); Mean Corpuscular HGB Conc 35.1 g/dL (30-55); Mean Corpuscular Hemoglobin 29.9 pg (27-33); Mean Corpuscular Volume 85.1 fl (85-98); Nucleated Red Blood Cells % 0 %; Platelet Count 172 10^3/cmm (157-399); Red Blood Count 4.75 10^6/uL (3.85-5.65); White Blood Count 5.24 10^3/uL (3.29-11.43)
[2025-08-28 09:22] LABS: Alanine Aminotransferase 31 U/L (0-33); Albumin Level 3.8 g/dL (3.5-5.2); Alkaline Phosphatase 92 U/L (35-105); Anion Gap 16.7 (5-19); Aspartate Amino Transferase 29 U/L (0-32); Blood Urea Nitrogen 9 mg/dL (8-23); Calcium 10.0 mg/dL (8.5-10.5); Carbon Dioxide 25 mmol/L (22-29); Chloride 96 mmol/L (98-107); Globulin 2.5 g/dL (1.3-4.6); Glucose 414 mg/dL (65-115); Osmolality Calculated 294 mOsm/kg (285-295); Potassium 3.7 mmol/L (3.5-5.1); Sodium 134 mmol/L (136-145); Total Protein 6.3 g/dL (6.6-8.7)
[2025-08-28 09:50] LABS: ABG PCO2 46.0 mmHg (35-45); ABG PH Result 7.38 (7.35-7.45); Alveolar-Arterial Oxygen Gradi 4.3 mmHg (5-10); Arterial Blood Gas Hematocrit 44.6 % (37-47); Blood Gas Allen Test Pos; Blood Gas Operator Identificat glc; Blood Gas Sample Site Radial, right; Blood Gas Sample Type Arterial; Carboxyhemoglobin 1.6 %THgb (0.4-20.1); Glucose Level-ABG 414.0 mg/dL (70-115); HCO3 ABG 27.0 mmol/L (22-26); Ionized Calcium Level - ABG 1.3 mmol/L (1.1-1.4); Methemoglobin 1.1 % (0.4-1.5); Oxygen Saturation ABG 91.8; PO2 ABG 60.0 mmHg (80.0-100.0); PO2 FiO2 Ratio Arterial Blood 285; Potassium Level - ABG 3.7 mmol/L (3.5-5.0); Sodium Level - ABG 136.0 mmol/L (131-143)
[2025-08-28 09:53] VITALS: BP 113/75; PULSE 86; RESP 16; O2SAT 94
[2025-08-28 10:08] LABS: Ketone (Acetest) Serum Negative (Negative)
--- NOTE | 2025-08-28 10:22 | ED_ITS ---
HPI - Back Pain/Injury 2 General: Chief Complaint: Back Pain/Injury Stated Complaint: fall - low back pain History of Present Illness: 60-year-old female who presents emergenc y room with complaints of low back pain after a fall. She did receive fentanyl and Zofran and route. She has dizziness after standing. She has had several falls recently is complaining now of pain in her low back she did not strike her head there was no loss of consciousness. She intermittently is mildly hypoxic in the emergency room but when she talks to this morning and sits up her oxygen sat immediately improves. She denies any chest pain or abdominal pain Associated symptoms: Deny abdominal pain, chills, dysuria, fever(s) or urinary urgency Related Data Home Medications ?Medication ?Instructions ?Recorded ?Confirmed amitriptyline 25 mg tablet 25 mg PO BEDTIME 02/15/21 1 11/01/24 amlodipine 5 mg tablet 5 mg PO DAILY 02/15/2109/01 cetirizine 10 mg capsule (All Day 10 mg PO BID PRN All ergic Symptoms 02/15/21 09/01/25 Allergy (cetirizine)) lisinopril 40 mg tablet 40 mg PO BEDTIME 02/15/21 lovastatin 20 mg tablet 20 mg PO BEDTIME 02/15/21 omeprazole 40 mg capsule,delayed 40 mg PO DAILY 09/01/25 release pregabalin 100 mg capsule (Lyrica) 100 mg PO BID 02/1509/01/25 aspirin 81 mg tablet,delayed 81 mg PO DAILY 10/02/2311/01/24 release (Adult Low Dose Aspirin) insulin aspart U-100 100 unit/mL See Rx Instructions . Route .COMPLEX 11/02/23 09/01/25 (3 mL) subcutaneous pen (Novolog FlexPen U-100 Insulin aspart) pqbtmmikje-mblctmzmrfxns-qfrliyza 1 cap PO Q4H PRN prn 12/04/23 09/01/25 50 mg-325 mg-40 mg capsule montelukast 10 mg tablet 10 mg PO DAILY 12/04/2308/09 (Singulair) fenofibrate nanocrystallized 48 mg 48 mg PO DAILY 05/0909/01/25 tablet cholecalciferol (vitamin D3) 1,250 See Rx Instructions PO .COMPLEX 05/13/25 09/01/25 mcg (50,000 unit) tablet (Dialyvite Vitamin D3 Max) hydrocodone 7.5 mg-acetaminophen 1 tab PO Q4H PRN Pain 08/28/25 09/01/25 325 mg tablet tirzepatide 2.5 mg/0.5 mL 2.5 mg SUBCUT Q7D 08/28/25 1 11/01/24 subcutaneous pen injector (Kacy) Previous Rx's ?Medication ?Instructions ?Recorded insulin glargine 100 unit/mL (3 See Rx Instructions .R oute 06/02/24 mL) subcutaneous pen (Lantus .COMPLEX #225 mL Solostar U-100 Insulin) bupropion HCl 300 mg 24 hr tablet, 300 mg PO QAM #30 t abs 05/13/25 extended release (Wellbutrin XL) hydroxyzine HCl 50 mg tablet 50 mg PO QID PRN insomnia #120 tabs 05/13/25 folic acid 1 mg tablet 1 mg PO DAILY #30 tabs 06/23 pilocarpine HCl 5 mg tablet 5 mg PO TID #90 tabs 06/23 prednisone 10 mg tablet See Rx Instructions PO .COMP PATSY 07/21/25 PRN joint pain #30 tabs clarithromycin 500 mg tablet 500 mg PO BID 10 days #20 tabs 08/11/25 polymyxin B sulfate 10,000 1 drp ophthalmic (eye) .fou r times 08/11/25 unit-trimethoprim 1 mg/mL eye drops daily 7 days #10 m L venlafaxine 150 mg 150 mg PO BEDTIME #30 caps 1 10/12/24 capsule,extended release 24 hr (Effexor XR) leflunomide 20 mg tablet 20 mg PO DAILY #60 tabs 08/08 01/30 hydrocodone 5 mg-acetaminophen 325 1 tab PO Q6H PRN pa in #15 tabs 08/28/25 mg tablet tizanidine 4 mg tablet 4 mg PO Q6H PRN muscle spast icity 08/28/25 #20 tabs Allergies Allergy/AdvReac Type Severity Reaction Status Date / Time latex Allergy Severe anaphlactic Verified 09/01/25 07:57 pecan nut Allergy Severe ALGY-Anaphy Verified 09/01/25 07:57 laxis adhesive tape Allergy ALGY-Rash Verified 09/01/25 07:57 Review of Systems 2 Const: Denies: fever(s) or chills Card: Denies: chest pain Resp: Denies: dyspnea GI: Denies: abdominal pain : Denies: dysuria, urinary frequency or urinary urgency Musc: Reports: back pain; Denies: neck pain Skin/Breast: Denies: rash PFSH ED 2 PFSH: Medical History Immunization counseling High risk medication use Seropositive rheumatoid arthritis of multiple sites Dyspareunia in female DDD (degenerative disc disease) Hx of migraines Bilateral carpal tunnel syndrome Psychiatric care Dyslipidemia History of obstructive sleep apnea History of depression History of anxiety Hypertension Fibromyalgia Diabetes mellitus Surgical History Hx of cataract surgery History of endometrial ablation History of cholecystectomy History of colonoscopy with polypectomy 2016 2021 - diverticuli History of 2 sections Family History Sister Ovarian cancer Diabetes Mother Heart disease Hypertension Thyroid disease Father Heart disease Hyperlipidemia Hypertension Diabetes Grandmother Heart disease Hyperlipidemia Hypertension Breast cancer Stroke Grandfather Heart disease Hyperlipidemia Hypertension Other Cancer Denies family history of Colon cancer Uterine cancer Social History Smoking and tobacco/nicotine status: never used tobacco/nicotine Quit status (tobacco/nicotine): has quit using Year quit tobacco: 1990 Second hand smoke exposure: No Alcohol intake: former Year of sobriety/quit date alcohol: 1989 Substance/Drug Use: former Household members: spouse and children Marital status: Current occupational status: unemployed Physical Exam 2 Const: GENERAL APPEARANCE: cooperative ORIENTATION/CONSCIOUSNESS: Yes awake, Yes oriented to person, Yes oriented to place and Yes oriented to time HENMT: COMMON NORMALS: normocephalic, atraumatic and hearing grossly normal bilaterally HEAD & SCALP: normocephalic and atraumatic Resp: COMMON NORMALS: normal respiratory effort, No retractions, No use of accessory muscles and clear to auscultation bilaterally AUSCULTATION: clear to auscultation bilaterally Cardio: COMMON NORMALS: regular rate, regular rhythm and No murmurs present (Cardio) RATE: regular rate RHYTHM: regular rhythm GI: COMMON NORMALS: Soft to palpation and No hepatosplenomegaly present A USCULTATION: Yes normoactive bowel sounds PALPATION: Yes Soft to palpation, No Tenderness to palpation present (GI), No Guarding due to palpation present (GI) and Yes No hepatosplenomegaly present Extremity: COMMON NORMALS: normal to inspection, capillary refill normal, no clubbing, cyanosis or edema, no calf tenderness and no pedal edema Neuro: SENSORIUM/ORIENTATION: Yes oriented to person, Yes oriented to place and Yes oriented to time Skin: COMMON NORMALS: no rashes or lesions noted GENERAL SKIN EXAM: no rashes or lesions noted Course 2 Vital Signs: Vital signs: Vital Signs Temperature 98.2 F 08/28/25 08:49 Pulse Rate 90 08/28/25 11:12 Respiratory Rate 16 08/28/25 10:57 Blood Pressure 126/72 08/28/25 11:12 Pulse Oximetry 93 08/28/25 11:12 Oxygen Delivery Me thod Room Air 08/28/25 10:57 MDM - Back Pain/Injury Medical Decision Making Medical decision making Social determinants: None I reviewed the patient's medical record. I reviewed the patient's current home meds Alternate historians: None Differential diagnosis: Back strain versus lumbar compression fracture/thoracic compression fracture Lab Review: Labs reviewed as found in the chart CBC normal. Glucose 414 anion gap normal Imaging: CT head and cervical spine normal acute L1 compression fracture noted on lumbar spine CT Assessment of risk: Level of risk: Moderate Hospitalization considerations: Consideration of hospitalization for pain control however pain control achieved while in the emergency room Reexamination: Pain improved with medications given Assessment and plan: Patient has acute L1 compression fracture will discharge patient home have her follow-up with thoracic spine surgery as an outpatient Medical Records I reviewed the patient's medical records. Labs I reviewed the patient's lab results. 08/28/25 08:55 08/28/25 08:55 Radiology Impressions Cervical Spine CT 08/28/25 09:01 IMPRESSION: No evidence of acute fracture or dislocation Head CT 08/28/25 09:01 IMPRESSION: 1. No evidence of intracranial hemorrhage or mass effect. 2. No acute intracranial findings. Lumbar Spine CT 08/28/25 09:01 IMPRESSION: 1. Mild acute compression fracture L1 superior endplate 2. Minimal retropulsion of the posterior superior cortex with slight effacement of the ventral thecal sac and narrowing of the subarticular recess Laboratory Results WBC 5.24 10^3/uL (3.29-11.43) 08/28/25 08:55 RBC 4.75 10^6/uL (3.85-5.65) 08/28/25 08:55 Hgb 14.20 g/dL (11.27-16.99) 08/28/25 08:55 Hct 40.4 % (36-47) 08/28/25 08:55 MCV 85.1 fl (85-98) 08/28/25 08:55 MCH 29.9 pg (27-33) 08/28/25 08:55 MCHC 35.1 g/dL (30-55) 08/28/25 08:55 RDW 13.9 % (12.1-15.1) 08/28/25 08:55 Plt Count 172 10^3/cmm (157-399) 08/28/25 08:55 MPV 10.0 fL (7.4-10.4) 08/28/25 08:55 Neut % (Auto) 56.0 % 08/28/25 08:55 Lymph % (Auto) 33.4 % 08/28/25 08:55 [place] % (Auto) 8.4 % 08/28/25 08:55 Eos % (Auto) 0.8 % 08/28/25 08:55 Baso % (Auto) 0.4 % 08/28/25 08:55 Neut # (Auto) 2.94 10^3/uL (1.8-7.7) 08/28/25 08:55 Lymph # (Auto) 1.8 10^3/uL (0.8-4.8) 08/28/25 08:55 [place] # (Auto) 0.4 10^3/uL (0.2-0.9) 08/28/25 08:55 Eos # (Auto) 0.0 10^3/uL (0.0-0.8) 08/28/25 08:55 Baso # (Auto) 0.0 10^3/uL (0.0-0.1) 08/28/25 08:55 Nucleated RBC % (auto) 0 % 08/28/25 08:55 Nucleated RBCs # 0.0 /100WBC 08/28/25 08:55 Specimen Type Arterial 08/28/25 09:38 Sample Site Radial, right 08/28/25 09:38 ABG pH 7.38 (7.35-7.45) 08/28/25 09:38 ABG pCO2 46.0 mmHg (35-45) H 08/28/25 09:38 ABG pO2 60.0 mmHg (80.0-100.0) L 08/28/25 09:38 ABG PO2/FiO2 Ratio 285 08/28/25 09:38 ABG HCO3 27.0 mmol/L (22-26) H 08/28/25 09:38 ABG O2 Saturation 91.8 08/28/25 09:38 ABG Base Excess 1.2 mmol/L (-2.0-2.0) 08/28/25 09:38 Qasim Test Pos 08/28/25 09:38 A-a O2 Gradient 4.3 mmHg (5-10) L 08/28/25 09:38 Hematocrit 44.6 % (37-47) 08/28/25 09:38 Hgb O2 Saturation 89.3 % (95-100) L 08/28/25 09:38 Carboxyhemoglobin 1.6 %THgb (0.4-20.1) 08/28/25 09:38 Methemoglobin 1.1 % (0.4-1.5) 08/28/25 09:38 Total Hemoglobin 14.5 g/dL (12-16) 08/28/25 09:38 Sodium 136.0 mmol/L (131-143) 08/28/25 09:38 Potassium 3.7 mmol/L (3.5-5.0) 08/28/25 09:38 Glucose 414.0 mg/dL (70-115) H 08/28/25 09:38 Ionized Calcium 1.3 mmol/L (1.1-1.4) 08/28/25 09:38 O2 Delivery Device Not Reportable 08/28/25 09:38 FiO2 21.0 % 08/28/25 09:38 Assistant Professor Of Economics ID glc 08/28/25 09:38 Sodium 134 mmol/L (136-145) L 08/28/25 08:55 Potassium 3.7 mmol/L (3.5-5.1) 08/28/25 08:55 Chloride 96 mmol/L (98-107) L 08/28/25 08:55 Carbon Dioxide 25 mmol/L (22-29) 08/28/25 08:55 Anion Gap 16.7 (5-19) 08/28/25 08:55 BUN 9 mg/dL (8-23) 08/28/25 08:55 Creatinine 0.7 mg/dL (0.5-0.9) 08/28/25 08:55 GFR Calculation 85.4 mL/min (90-130) L 08/28/25 08:55 Glucose 414 mg/dL (65-115) H 08/28/25 08:55 Calculated Osmolality 294 mOsm/kg (285-295) 08/28/25 08:55 Calcium 10.0 mg/dL (8.5-10.5) 08/28/25 08:55 Total Bilirubin 1.2 mg/dL (0.15-1.2) 08/28/25 08:55 AST 29 U/L (0-32) 08/28/25 08:55 ALT 31 U/L (0-33) 08/28/25 08:55 Alkaline Phosphatase 92 U/L (35-105) 08/28/25 08:55 Total Protein 6.3 g/dL (6.6-8.7) L 08/28/25 08:55 Albumin 3.8 g/dL (3.5-5.2) 08/28/25 08:55 Globulin 2.5 g/dL (1.3-4.6) 08/28/25 08:55 Serum Ketones Negative (Negative) 08/28/25 08:55 All radiology interpretation(s) finalized by discharge Discharge Plan Discharge Patient Disposition: Home Clinical Impression: Closed compression fracture of lumbar vertebra Condition: Stable Prescriptions: New hydrocodone-acetaminophen 5-325 mg tablet 1 tab PO Q6H PRN (Reason: pain) Qty: 15 0RF tizanidine 4 mg tablet 4 mg PO Q6H PRN (Reason: muscle spasticity) Qty: 20 0RF Rx Instructions: do not exceed 3 doses per 24 hrs No Action omeprazole 40 mg capsule,delayed release(DR/EC) 40 mg PO DAILY All Day Allergy (cetirizine) 10 mg capsule 10 mg PO BID PRN (Reason: Allergic Symptoms) amitriptyline 25 mg tablet 25 mg PO BEDTIME amlodipine 5 mg tablet 5 mg PO DAILY pregabalin [Lyrica] 100 mg capsule 100 mg PO BID lovastatin 20 mg tablet 20 mg PO BEDTIME lisinopril 40 mg tablet 40 mg PO BEDTIME Dialyvite Vitamin D3 Max 1,250 mcg (50,000 unit) tablet See Rx Instructions PO .COMPLEX Rx Instructions: Take 1 tablet by mouth 2 times weekly. insulin aspart U-100 [Novolog FlexPen U-100 Insulin] 100 unit/mL (3 mL) insulin pen See Rx Instructions .ROUTE .COMPLEX Rx Instructions: Give 3 unit subcutaneously 3 times daily plus sliding scale 100-150(3 units),151-200(6 units),201-250(9 units),251-300(12 units),301-350(15 units),351-400(18 units) [id number] 50-325-40 mg capsule 1 cap PO Q4H MDD headache PRN (Reason: prn) montelukast [Singulair] 10 mg tablet 10 mg PO DAILY fenofibrate nanocrystallized 48 mg tablet 48 mg PO DAILY aspirin [Adult Low Dose Aspirin] 81 mg tablet,delayed release (DR/EC) 81 mg PO DAILY bupropion HCl [Wellbutrin XL] 300 mg tablet extended release 24 hr 300 mg PO QAM Qty: 30 11RF hydroxyzine HCl 50 mg tablet 50 mg PO QID PRN (Reason: insomnia) Qty: 120 2RF pilocarpine HCl 5 mg tablet 5 mg PO TID Qty: 90 3RF folic acid 1 mg tablet 1 mg PO DAILY Qty: 30 3RF venlafaxine [Effexor XR] 150 mg capsule,extended release 24hr 150 mg PO BEDTIME Qty: 30 11RF clarithromycin 500 mg tablet 500 mg PO BID 10 Days Qty: 20 0RF polymyxin B sulf-trimethoprim 10,000 unit- 1 mg/mL drops 1 drp ophthalmic (eye) .four times daily 7 Days Qty: 10 0RF Rx Instructions: while awake; do not exceed 6 doses in 24 hours insulin glargine [Lantus Solostar U-100 Insulin] 100 unit/mL (3 mL) insulin pen See Rx Instructions .ROUTE .COMPLEX Qty: 225 0RF Dose Instruction: INJECT 125 UNITS SUBCUTANEOUSLY TWICE DAILY Rx Instructions: INJECT 130 UNITS SUBCUTANEOUSLY TWICE DAILY prednisone 10 mg tablet See Rx Instructions PO .COMPLEX PRN (Reason: joint pain) Qty: 30 1RF Rx Instructions: Take 1 or 2 tablets daily for 3-7 days as needed for joint pain flare. leflunomide 20 mg tablet 20 mg PO DAILY Qty: 60 3RF hydrocodone-acetaminophen 7.5-325 mg tablet 1 tab PO Q4H PRN (Reason: Pain) Mounjaro 2.5 mg/0.5 mL pen injector 2.5 mg SUBCUT Q7D Discharge Orders: Discharge ED (Routine); Ordered 08/28/25 Ordered By: Sin Fenton Referrals: Lacy Rios MD [Primary Care Provider, Internal Medicine] Patient Instructions: Opioid Safety, Pain Management, Patient Portal & [place] Instructions Activity Restrictions/Additional Instructions: [facility]. It is very important that you follow up as instructed or that you return to the Emergency Department should you have concerns or if your condition changes or worsens in any way. Emergency department visits are focused on emergent conditions, in some cases you may require further evaluation on an outpatient basis. You were seen in the emergency room with complaints of low back pain. Imaging of your back shows new compression fractures at the 1st and 2nd lumbar vertebrae. This is above the region where you previously had your back surgery. We reviewed the films with Dr. Smith he recommends outpatient follow-up in his office next week you are discharged home with the tizanidine and hydrocodone for pain. Recommend avoiding bending stooping or heavy lifting. (Please note that included in your discharge packet is information concerning opioid safety and pain management. 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
[2025-08-28] MEDS: insulin regular-human 100 units/1 mL 10 UNIT IVP (10:32)
[2025-08-28 10:57] VITALS: BP 124/78; PULSE 82; RESP 16; O2SAT 92
[2025-08-28 11:12] VITALS: BP 126/72; PULSE 90; O2SAT 93
--- NOTE | 2025-08-31 07:45 | DCPLANNER ---
messaged ortho for er f/u
== END 2025-08-28 11:20 | disposition home or self-care (01) ==
PROVIDERS: Emergency Provider Family Medicine; PCP Internal Medicine
DX: S32.010A Wedge compression fracture of first lumbar vertebra, initial encounter for closed fracture (principal); Z79.4 Long term (current) use of insulin; Z79.82 Long term (current) use of aspirin; Z87.891 Personal history of nicotine dependence; E78.5 Hyperlipidemia, unspecified; I10 Essential (primary) hypertension; E11.9 Type 2 diabetes mellitus without complications; W19.XXXA Unspecified fall, initial encounter
CPT/HCPCS: 36600; 70450; 72125; 72131; 80051; 80053; 82009; 82330; 82805; 85025; 96374; 96375; 99285; J1815; J1885

== ENCOUNTER → 2025-09-01 13:42 | Outpatient (BNVA) | payer OTHER, SELFPAY ==
[2024-05-20 09:42] VITALS: BP 137/74; BMI 41.5
== END ==
PROVIDERS: PCP Internal Medicine; Visit Provider Orthopaedic Surgery
DX: S32.010A Wedge compression fracture of first lumbar vertebra, initial encounter for closed fracture (principal); S32.020A Wedge compression fracture of second lumbar vertebra, initial encounter for closed fracture; X58.XXXA Exposure to other specified factors, initial encounter
CPT/HCPCS: 72100

== ENCOUNTER 2025-09-04 14:11 | Outpatient (CLI) | payer OTHER, SELFPAY ==
[2024-05-20 09:42] VITALS: BP 137/74; BMI 41.5
--- NOTE | 2025-09-04 14:30 | MRR_ITS ---
PROCEDURE INFORMATION: Exam: MR Lumbar Spine Without Contrast Exam date and time: 09/04/2025 2:32 PM Age: 60 years old Clinical indication: Injury or trauma; Blunt trauma (contusions or hematomas); Injury date: 1 week ago; Injury details: Fall x 1 week, compression fractures, RT leg pain; Prior surgery; Surgery date: 6+ months; Surgery type: Lsp fusion; Additional info: Low back injury TECHNIQUE: Imaging protocol: Magnetic resonance imaging of the lumbar spine without contrast. COMPARISON: CT lumbar spine wo con* [id number] 08/28/2025 9:15 AM FINDINGS: Bones/joints: There is a subacute compression fracture involving the superior endplate of the L1 vertebral body. The fracture comprises less than 20% of vertebral body height. An old compression fracture involves the L2 vertebral body. Spinal cord: Visualized cord, conus medullaris and cauda equina are unremarkable without compression. L1-L2: No significant disc bulge or herniation. No severe spinal canal stenosis. No significant neural foraminal narrowing. L2-L3: No significant disc bulge or herniation. No severe spinal canal stenosis. No significant neural foraminal narrowing. L3-L4: No significant disc bulge or herniation. No severe spinal canal stenosis. No significant neural foraminal narrowing. L4-L5: No significant disc bulge or herniation. No severe spinal canal stenosis. No significant neural foraminal narrowing. L5-S1: At the L5-S1 level there is evidence of previous posterior surgical fusion. No spinal stenosis noted. Soft tissues: Unremarkable. MR/MR lumbar spine wo con* [id number] IMPRESSION: 1. Subacute compression fracture of L1 2. Old compression fracture of L2 3. Intact L5-S1 fusion
== END 2025-09-04 14:12 | disposition home or self-care (01) ==
LOC: RAD 14:14
PROVIDERS: PCP Internal Medicine; Visit Provider Orthopaedic Surgery
DX: S32.000A Wedge compression fracture of unspecified lumbar vertebra, initial encounter for closed fracture (principal); X58.XXXA Exposure to other specified factors, initial encounter
CPT/HCPCS: 72148